=== PATIENT | male | born 1960 | race Caucasian/White ===

== ENCOUNTER 2020-04-05 08:10 | Outpatient (CLI) | payer MEDICARE, SELFPAY ==
[2020-04-05 08:50] LABS: Basophils Absolute Auto 0.1 K/mm3 (0.0-0.1); Basophils Percent Auto 1.9 % (0.2-1.2); Eosinophils Absolute Auto 0.3 K/mm3 (0-0.3); Eosinophils Percent Auto 4.4 % (0-4.4); Hematocrit 45.2 % (42.0-52.0); Hemoglobin 14.4 g/dL (14.0-18.0); Immature Granulocyte Absolute 0.02 K/mm3 (0.00-0.031); Immature Granulocyte Percent A 0.3 % (0-0.5); Lymphocytes Absolute Auto 1.89 K/mm3 (0.9-3.2); Lymphocytes Percent Auto 32.2 % (18.3-44.2); Mean Corpuscular HGB Conc 31.9 g/dl (32-36); Mean Corpuscular Hemoglobin 28.9 pg (26-34); Mean Corpuscular Volume 90.6 fl (80-100); Mean Platelet Volume 9.2 fl (7.4-10.4); Monocytes Absolute Auto 0.5 K/mm3 (0.1-0.6); Monocytes Percent Auto 8.5 % (2.6-8.5); Neutrophils Absolute Auto 3.1 K/mm3 (1.3-6.7); Neutrophils Percent Auto 52.7 % (45.5-73.1); Platelet Count Result 346 k/mm3 (150-375); Red Blood Count 4.99 M/mm3 (4.6-6.20); Red Cell Distribution Width 14.6 % (11.5-14.5); White Blood Count 5.9 K/mm3 (4.5-10.0)
[2020-04-05 08:57] LABS: Cholesterol 168 mg/dL (0-200); HDL Direct 30 mg/dL; Triglycerides 171 mg/dL (<150)
[2020-04-05 09:10] LABS: LDL Cholesterol Direct 120 mg/dL
[2020-04-05 09:30] LABS: Prostate Specific Antigen 1.4 ng/mL (< OR = 4.0)
[2020-04-05 09:33] LABS: Free T4 Free Thyroxine 0.87 ng/mL (0.78-2.19)
[2020-04-05 10:06] LABS: Folic Acid 6.9 ng/mL (2.76->20)
== END 2020-04-05 08:11 | disposition home or self-care (01) ==
PROVIDERS: PCP Internal Medicine; Visit Provider Internal Medicine
DX: R53.83 Other fatigue (principal); E78.5 Hyperlipidemia, unspecified; Z12.5 Encounter for screening for malignant neoplasm of prostate; E03.9 Hypothyroidism, unspecified
CPT/HCPCS: 36415; 80061; 82607; 82746; 84153; 84439; 84443; 85025; G0103

== ENCOUNTER 2020-08-24 12:58 | Outpatient (CLI) | payer MEDICARE, SELFPAY | END 2020-08-24 12:59 | disposition home or self-care (01) | LOC: ANHCOVIDVC 12:58 | PROVIDERS: PCP Internal Medicine; Visit Provider Internal Medicine | DX: Z23 Encounter for immunization (principal) | CPT/HCPCS: 0001A; 91300 ==

== ENCOUNTER 2020-09-14 12:54 | Outpatient (CLI) | payer MEDICARE, SELFPAY | END 2020-09-14 12:55 | disposition home or self-care (01) | LOC: ANHCOVIDVC 12:54 | PROVIDERS: PCP Internal Medicine; Visit Provider Internal Medicine | DX: Z23 Encounter for immunization (principal) | CPT/HCPCS: 0002A; 91300 ==

== ENCOUNTER 2021-06-20 08:42 | Outpatient (CLI) | payer MEDICARE, SELFPAY ==
[2021-06-20 09:25] LABS: Basophils Absolute Auto 0.1 K/mm3 (0.0-0.1); Basophils Percent Auto 1.2 % (0.2-1.2); Eosinophils Absolute Auto 0.3 K/mm3 (0-0.3); Eosinophils Percent Auto 4.3 % (0-4.4); Hematocrit 44.4 % (42.0-52.0); Hemoglobin 14.1 g/dL (14.0-18.0); Immature Granulocyte Absolute 0.02 K/mm3 (0.00-0.031); Immature Granulocyte Percent A 0.3 % (0-0.5); Lymphocytes Absolute Auto 1.57 K/mm3 (0.9-3.2); Lymphocytes Percent Auto 23.5 % (18.3-44.2); Mean Corpuscular HGB Conc 31.8 g/dl (32-36); Mean Corpuscular Hemoglobin 29.4 pg (26-34); Mean Corpuscular Volume 92.5 fl (80-100); Mean Platelet Volume 9.2 fl (7.4-10.4); Monocytes Absolute Auto 0.5 K/mm3 (0.1-0.6); Monocytes Percent Auto 8.1 % (2.6-8.5); Neutrophils Absolute Auto 4.2 K/mm3 (1.3-6.7); Neutrophils Percent Auto 62.6 % (45.5-73.1); Platelet Count Result 381 k/mm3 (150-375); White Blood Count 6.7 K/mm3 (4.5-10.0)
[2021-06-20 10:43] LABS: Alanine Aminotransferase 26 U/L (4-50); Albumin Level 4.3 g/dL (3.5-5.1); Alkaline Phosphatase 82 U/L (38-126); Anion Gap 9 mmol/L (8-16); Aspartate Amino Transferase 26 U/L (17-59); Bilirubin,Total 0.4 mg/dL (0.2-1.3); Blood Urea Nitrogen 11 mg/dL (9-20); Calcium 9.4 mg/dL (8.4-10.2); Carbon Dioxide 27 mmol/L (22-30); Chloride 102 mmol/L (98-107); Cholesterol 157 mg/dL (0-200); Estimated Glomerular Filt Rate > 60; Glucose 114 mg/dL (65-110); HDL Direct 25 mg/dL; Potassium 4.6 mmol/L (3.4-5.0); Sodium 138 mmol/L (137-145); Triglycerides 145 mg/dL (<150)
[2021-06-20 10:54] LABS: LDL Cholesterol Direct 110 mg/dL
[2021-06-20 11:18] LABS: Free T4 Free Thyroxine 1.03 ng/mL (0.78-2.19)
[2021-06-20 11:47] LABS: Folic Acid 7.2 ng/mL (2.76->20)
== END 2021-06-20 08:43 | disposition home or self-care (01) ==
PROVIDERS: PCP Internal Medicine; Visit Provider Internal Medicine
DX: E03.9 Hypothyroidism, unspecified (principal); E78.5 Hyperlipidemia, unspecified; R53.83 Other fatigue
CPT/HCPCS: 36415; 80053; 80061; 82607; 82746; 84439; 84443; 85025

== ENCOUNTER 2022-01-19 07:31 | Outpatient (RCR) | payer MEDICARE, SELFPAY ==
--- NOTE | 2022-01-10 08:49 | PCWOUND ---
WOCN NOTE Spoke with patient's Nicole who states they need to cancel today due to weather. Rescheduled for 01/19/22 at 9:30am
--- NOTE | 2022-01-19 09:26 | PCWOUND ---
WOCN NOTE Patient with new deep tissue injuries surrounding the ulcer on the left heel. Patient's spouse states he wears the waffle boots at night. Patient was asked if he would wear the waffle boot during the day for a few days to see if it helps. Patient states no. Asked patient if he has his feet up during the day on a hard surface while sitting in a recliner, both patient and spouse states he doesn't. When looks at the foot rest on wheelchair, there is a hard surface that holds foot strap to keep foot on the rest, it's possible that he is resting his foot on the hard surface without noticing due to his paralysis. Spouse asked patient if she could foam the area when they got home. Patient stated maybe . Patient is unwilling to find out why he's getting pressure to the foot. Instructed patient and his spouse to watch the areas and try to pay closer attention as to wear he rests his feet during the day to see if they could solve the problem. Spouse verbalized understanding.
== END 2022-03-13 23:59 | disposition home or self-care (01) ==
LOC: ANHWOC 07:31
PROVIDERS: PCP Internal Medicine; Visit Provider Podiatrist Foot & Ankle Surgery
DX: L89.623 Pressure ulcer of left heel, stage 3 (principal)
CPT/HCPCS: 99212; 99213; A9270; G0463

== ENCOUNTER 2022-03-02 08:05 | Outpatient (CLI) | payer MEDICARE, SELFPAY ==
[2022-03-02 08:30] LABS: Basophils Absolute Auto 0.1 K/mm3 (0.0-0.1); Basophils Percent Auto 1.9 % (0.2-1.2); Eosinophils Absolute Auto 0.4 K/mm3 (0-0.3); Eosinophils Percent Auto 5.4 % (0-4.4); Hemoglobin 13.6 g/dL (14.0-18.0); Immature Granulocyte Absolute 0.02 K/mm3 (0.00-0.031); Immature Granulocyte Percent A 0.3 % (0-0.5); Lymphocytes Absolute Auto 2.08 K/mm3 (0.9-3.2); Lymphocytes Percent Auto 27.5 % (18.3-44.2); Mean Corpuscular HGB Conc 31.6 g/dl (32-36); Mean Corpuscular Hemoglobin 28.2 pg (26-34); Mean Corpuscular Volume 89.2 fl (80-100); Mean Platelet Volume 9.3 fl (7.4-10.4); Monocytes Absolute Auto 0.6 K/mm3 (0.1-0.6); Monocytes Percent Auto 7.3 % (2.6-8.5); Neutrophils Absolute Auto 4.4 K/mm3 (1.3-6.7); Neutrophils Percent Auto 57.6 % (45.5-73.1); Platelet Count Result 317 k/mm3 (150-375); Red Blood Count 4.82 M/mm3 (4.6-6.20); Red Cell Distribution Width 14.9 % (11.5-14.5); White Blood Count 7.6 K/mm3 (4.5-10.0)
[2022-03-02 08:56] LABS: Free T4 Free Thyroxine 1.08 ng/mL (0.78-2.19)
[2022-03-02 10:23] LABS: Alanine Aminotransferase 22 U/L (6-50); Albumin Level 3.8 g/dL (3.5-5.1); Alkaline Phosphatase 82 U/L (38-126); Anion Gap 10 mmol/L (8-16); Aspartate Amino Transferase 25 U/L (17-59); Bilirubin,Total 0.4 mg/dL (0.2-1.3); Blood Urea Nitrogen 13 mg/dL (9-20); Calcium 8.9 mg/dL (8.4-10.2); Carbon Dioxide 23 mmol/L (22-30); Chloride 105 mmol/L (98-107); Cholesterol 157 mg/dL (0-200); Estimated Glomerular Filt Rate > 60; Glucose 104 mg/dL (65-110); HDL Direct 22 mg/dL; Potassium 4.4 mmol/L (3.4-5.0); Sodium 138 mmol/L (137-145); Triglycerides 202 mg/dL (<150)
[2022-03-02 10:36] LABS: LDL Cholesterol Direct 105 mg/dL
[2022-03-02 10:54] LABS: Prostate Specific Antigen 0.9 ng/mL (< OR = 4.0)
== END 2022-03-02 08:06 | disposition home or self-care (01) ==
PROVIDERS: PCP Internal Medicine; Visit Provider Internal Medicine
DX: E78.5 Hyperlipidemia, unspecified (principal); E03.9 Hypothyroidism, unspecified; R53.83 Other fatigue; Z12.5 Encounter for screening for malignant neoplasm of prostate
CPT/HCPCS: 36415; 80053; 80061; 82607; 82746; 84153; 84439; 84443; 85025; G0103

== ENCOUNTER 2023-03-16 07:14 | Outpatient (CLI) | payer MEDICARE, SELFPAY ==
[2023-03-16 08:02] LABS: Basophils Absolute Auto 0.1 K/mm3 (0.0-0.1); Basophils Percent Auto 1.6 % (0.2-1.2); Eosinophils Absolute Auto 0.4 K/mm3 (0-0.3); Eosinophils Percent Auto 5.1 % (0-4.4); Hematocrit 43.8 % (42.0-52.0); Immature Granulocyte Absolute 0.02 K/mm3 (0.00-0.031); Immature Granulocyte Percent A 0.2 % (0-0.5); Lymphocytes Absolute Auto 1.91 K/mm3 (0.9-3.2); Lymphocytes Percent Auto 23.6 % (18.3-44.2); Mean Corpuscular Hemoglobin 29.3 pg (26-34); Mean Corpuscular Volume 91.6 fl (80-100); Mean Platelet Volume 9.4 fl (7.4-10.4); Monocytes Absolute Auto 0.6 K/mm3 (0.1-0.6); Monocytes Percent Auto 6.8 % (2.6-8.5); Neutrophils Absolute Auto 5.1 K/mm3 (1.3-6.7); Neutrophils Percent Auto 62.7 % (45.5-73.1); Platelet Count Result 353 k/mm3 (150-375); Red Blood Count 4.78 M/mm3 (4.6-6.20); Red Cell Distribution Width 14.7 % (11.5-14.5); White Blood Count 8.1 K/mm3 (4.5-10.0)
[2023-03-16 08:15] LABS: Alanine Aminotransferase 21 U/L (6-50); Albumin Level 4.1 g/dL (3.5-5.1); Alkaline Phosphatase 70 U/L (38-126); Anion Gap 6 mmol/L (8-16); Aspartate Amino Transferase 29 U/L (17-59); Bilirubin,Total 0.5 mg/dL (0.2-1.3); Blood Urea Nitrogen 17 mg/dL (9-20); Calcium 8.9 mg/dL (8.4-10.2); Carbon Dioxide 26 mmol/L (22-30); Chloride 106 mmol/L (98-107); Cholesterol 158 mg/dL (0-200); Estimated Glomerular Filt Rate > 60; Glucose 109 mg/dL (65-110); HDL Direct 24 mg/dL; Potassium 4.6 mmol/L (3.4-5.0); Sodium 138 mmol/L (137-145); Triglycerides 111 mg/dL (<150)
[2023-03-16 08:26] LABS: LDL Cholesterol Direct 102 mg/dL
[2023-03-16 08:46] LABS: Free T4 Free Thyroxine 0.91 ng/mL (0.78-2.19)
[2023-03-16 16:23] LABS: Prostate Specific Antigen 1.7 ng/mL (< OR = 4.0)
== END 2023-03-16 07:15 | disposition home or self-care (01) ==
PROVIDERS: PCP Internal Medicine; Visit Provider Internal Medicine
DX: E78.5 Hyperlipidemia, unspecified (principal); E03.9 Hypothyroidism, unspecified; R53.83 Other fatigue; Z12.5 Encounter for screening for malignant neoplasm of prostate
CPT/HCPCS: 36415; 80053; 80061; 84153; 84439; 84443; 85025; G0103

== ENCOUNTER 2023-11-26 07:30 | Outpatient (RCR) | payer MEDICARE, SELFPAY | END 2024-01-21 08:49 | disposition home or self-care (01) | LOC: ANHWOC 07:30 | PROVIDERS: PCP Internal Medicine; Visit Provider Plastic Surgery | DX: L97.119 Non-pressure chronic ulcer of right thigh with unspecified severity (principal); L97.129 Non-pressure chronic ulcer of left thigh with unspecified severity | CPT/HCPCS: 99213; G0463 ==

== ENCOUNTER 2024-04-15 08:20 | Outpatient (CLI) | payer MEDICARE, SELFPAY ==
[2024-04-15 09:30] LABS: Basophils Absolute Auto 0.1 K/mm3 (0.0-0.1); Basophils Percent Auto 1.7 % (0.2-1.2); Eosinophils Absolute Auto 0.4 K/mm3 (0-0.3); Eosinophils Percent Auto 5.1 % (0-4.4); Hematocrit 38.1 % (42.0-52.0); Hemoglobin 11.9 g/dL (14.0-18.0); Immature Granulocyte Absolute 0.02 K/mm3 (0.00-0.031); Immature Granulocyte Percent A 0.3 % (0-0.5); Lymphocytes Absolute Auto 1.45 K/mm3 (0.9-3.2); Lymphocytes Percent Auto 20.1 % (18.3-44.2); Mean Corpuscular HGB Conc 31.2 g/dl (32-36); Mean Corpuscular Hemoglobin 28.5 pg (26-34); Mean Corpuscular Volume 91.4 fl (80-100); Mean Platelet Volume 9.9 fl (7.4-10.4); Monocytes Absolute Auto 0.6 K/mm3 (0.1-0.6); Monocytes Percent Auto 8.1 % (2.6-8.5); Neutrophils Absolute Auto 4.7 K/mm3 (1.3-6.7); Neutrophils Percent Auto 64.7 % (45.5-73.1); Platelet Count Result 357 k/mm3 (150-375); Red Blood Count 4.17 M/mm3 (4.6-6.20); Red Cell Distribution Width 15.3 % (11.5-14.5); White Blood Count 7.2 K/mm3 (4.5-10.0)
[2024-04-15 09:51] LABS: Alanine Aminotransferase 14 U/L (6-50); Alkaline Phosphatase 86 U/L (38-126); Anion Gap 12 mmol/L (4-12); Aspartate Amino Transferase 17 U/L (17-59); Bilirubin,Total 0.4 mg/dL (0.2-1.3); Blood Urea Nitrogen 16 mg/dL (9-20); Calcium 9.1 mg/dL (8.4-10.2); Carbon Dioxide 21 mmol/L (22-30); Chloride 107 mmol/L (98-107); Cholesterol 153 mg/dL (0-200); Estimated Glomerular Filt Rate > 60; Glucose 94 mg/dL (65-110); HDL Direct 28 mg/dL; Potassium 4.5 mmol/L (3.4-5.0); Sodium 140 mmol/L (137-145); Triglycerides 164 mg/dL (<150)
[2024-04-15 10:02] LABS: LDL Cholesterol Direct 93 mg/dL
[2024-04-15 10:20] LABS: Prostate Specific Antigen 1.8 ng/mL (< OR = 4.0)
[2024-04-15 10:37] LABS: Free T4 Free Thyroxine 1.12 ng/mL (0.78-2.19)
[2024-04-15 10:55] LABS: Folic Acid 10.2 ng/mL (2.76->20)
== END 2024-04-15 08:21 | disposition home or self-care (01) ==
PROVIDERS: PCP Internal Medicine; Visit Provider Nurse Practitioner
DX: E03.9 Hypothyroidism, unspecified (principal); E78.5 Hyperlipidemia, unspecified; G82.21 Paraplegia, complete; Z12.5 Encounter for screening for malignant neoplasm of prostate
CPT/HCPCS: 36415; 80053; 80061; 82607; 82746; 84153; 84439; 84443; 85025; G0103

== ENCOUNTER 2024-04-24 14:01 | Outpatient (CLI) | payer MEDICARE, SELFPAY ==
[2024-04-24 15:56] LABS: Iron 33 ug/dL (49-181)
[2024-04-24 16:05] LABS: Percent Iron Saturation 12 % (20-50)
== END 2024-04-24 14:02 | disposition home or self-care (01) ==
LOC: ANHLAB 14:03
PROVIDERS: PCP Internal Medicine; Visit Provider Nurse Practitioner
DX: D64.9 Anemia, unspecified (principal)
CPT/HCPCS: 36415; 82728; 83540; 83550; 99202; G0463

== ENCOUNTER 2024-05-01 13:04 | Outpatient (CLI) | payer MEDICARE, SELFPAY | END 2024-05-01 13:05 | disposition home or self-care (01) | LOC: ANHAUDIO 13:06 | PROVIDERS: PCP Internal Medicine; Visit Provider Nurse Practitioner | DX: H90.3 Sensorineural hearing loss, bilateral (principal); H93.13 Tinnitus, bilateral | CPT/HCPCS: 92557; 92567 ==

== ENCOUNTER 2024-07-01 09:19 | Outpatient (CLI) | payer MEDICARE, SELFPAY ==
[2024-07-01 09:52] LABS: Hemoglobin 13.1 g/dL (14.0-18.0); Mean Corpuscular HGB Conc 31.2 g/dl (32-36); Mean Corpuscular Hemoglobin 28.2 pg (26-34); Mean Corpuscular Volume 90.5 fl (80-100); Mean Platelet Volume 9.3 fl (7.4-10.4); Platelet Count Result 323 k/mm3 (150-375); Red Blood Count 4.64 M/mm3 (4.6-6.20); Red Cell Distribution Width 16.1 % (11.5-14.5); White Blood Count 9.8 K/mm3 (4.5-10.0)
[2024-07-01 18:52] LABS: Iron 67 ug/dL (49-181)
[2024-07-01 19:06] LABS: Percent Iron Saturation 22 % (20-50)
== END 2024-07-01 09:20 | disposition home or self-care (01) ==
LOC: ANHLAB 09:20
PROVIDERS: PCP Internal Medicine; Visit Provider Nurse Practitioner
DX: D64.9 Anemia, unspecified (principal)
CPT/HCPCS: 36415; 83540; 83550; 85027

== ENCOUNTER 2024-09-16 21:43 | Emergency (ER) | payer MEDICARE, SELFPAY ==
[2024-09-16 21:45] VITALS: BP 153/88; PULSE 79; RESP 17; TEMP 37.2; O2SAT 97
--- OUTSIDE RECORDS SUMMARY | 2024-09-16 21:45 | XMS_ITS | Encounter Summary ---
Author Organization [facility] Address [address] [place] [address] Care Team Providers Care Avionics Electronics Technician Name Role Phone Non-Staff, Provider Primary Care Provider Carlos ferreira Reason for Visit * Reason Onset Date Comments Follow Up Call 09/16/2024 Wound care refer ral from IP stay. Patient already discharged. Called patient to see if would like to be seen at the wound care clinic for wound on his bottom. stated she would talk to and call back tomorrow and let us know if he would like to be seen at [facility]. Encounter Details Date Type Department Care Team (Late st Contact Info) Description 09/16/2024 Telephone [facility] [address] [place] [address] Remedios Fuller, RN Follow Up Call (Wound care referral from IP stay. Patient already discharged. Called patient to see if would like to be seen at the wound care clinic for wound on his bottom. stated she would talk to and call back tomorrow and let us know if he would like to be seen at [facility].) Social History Tobacco Use Types Packs/Day Years Used Date Smoking Tobacco: Some Days Cigarettes Smokeless Tobacco: Never Alcohol Use Standard Drinks/Week Comments Never 0 (1 standard drink = 0.6 oz pur e alcohol) B1300 Health Literacy Answer Date Recor ded How often do you need to hav e someone help you when you read instructions, pamphlets, or other written material from your doctor or pharmacy? Rarely 09/13/2024 [facility] Utilities Answer Date Recorded In the past 12 months has th e electric, gas, oil, or water [employer] threatened to shut off services in your home? No 09/13/2024 Humiliation, Afraid, Rape, and Kick questionnair e Answer Date Recorded Within the last year, have y ou been afraid of your partner or ex-partner? No 09/13/2024 Within the last year, have y ou been humiliated or emotionally abused in other ways by your partner or ex-partner? No Within the last year, have y ou been kicked, hit, slapped, or otherwise physically hurt by your partner or ex-partner? No 09/13/2024 Within the last year, have y ou been raped or forced to have any kind of sexual activity by your partner or ex-partner? No 09/13/2024 Social Connection and Isolation Panel [NHANES] A nswer Date Recorded In a typical week, how many times do you talk on the phone with family, friends, or neighbors? Never 09/13/2024 How often do you get together with friends or re latives? Never 09/13/2024 How often do you attend baptism or confucianist serv ices? Never 09/13/2024 Do you belong to any clubs o r organizations such as baptism groups, unions, fraternal or athletic groups, or school groups? Yes 09/13/2024 Attends Club or Organization Meetings Not on randolph e 09/13/2024 Are you , , di vorced, , never , or living with a partner? 09/13/2024 AUDIT-C Answer Date Recorded Q1: How often do you have a drink containing alc ohol? Monthly or less 09/13/2024 Average Number of Drinks Not on file 025 Frequency of Binge Drinking Not on file 08/17 Overall Financial Resource Strain (CARDIA) Answe r Date Recorded How hard is it for you to pa y for the very basics like food, housing, medical care, and heating? Not hard at all 09/13/2024 Exercise Vital Sign Answer Date Recorde d On average, how many days pe r week do you engage in moderate to strenuous exercise (like a brisk walk)? 0 days 09/13/2024 On average, how many minutes do you engage in exercise at this level? 0 min 09/13/2024 Hunger Vital Sign Answer Date Recorded Within the past 12 months, y ou worried that your food would run out before you got the money to buy more. Never true 09/14/19 25 Within the past 12 months, t he food you bought just didn't last and you didn't have money to get more. Never true 09/13/2024 PRAPARE - Transportation Answer Date Re corded In the past 12 months, has l ack of transportation kept you from medical appointments or from getting medications? No 08/17 In the past 12 months, has l ack of transportation kept you from meetings, work, or from getting things needed for daily living? No 09/13/2024 Housing Stability Vital Sign Answer Monty e Recorded In the last 12 months, was t here a time when you were not able to pay the mortgage or rent on time? No 09/13/2024 In the past 12 months, how m any times have you moved where you were living? 1 09/13/2024 At any time in the past 12 m [facility], were you homeless or living in a [facility] (including now)? No 09/13/2024 Sex and Gender Information Value Date Recorded Sex Assigned at Male 09/14/2024 10:14 AM CDT Legal Sex Male 7:26 PM CDT Gender Identity Male 09/14/2024 10:14 AM CDT Sexual Orientation Straight 09/14/2024 10 :14 AM CDT documented as of this encounter Functional Status * Are you deaf or do you have serious difficulty hearing Answer Date of Assessment Author Status Yes 09/13/2024 11:35 PM CDT uSjata Cleaning RN Active * Are you blind or do you have serious difficulty seeing, even when wearing glasses? Answer Date of Assessment Author Status No 09/13/2024 11:35 PM CDT Sujata Cleaning RN Active * Do you have serious difficulty walking or climbing stairs? Answer Date of Assessment Author Status Yes 09/13/2024 11:35 PM CDT Sujata Cleaning RN Active * Do you have difficulty dressing or bathing? Answer Date of Assessment Author Status Yes 09/13/2024 11:35 PM CDT Sujata Cleaning RN Active * Because of a physical, mental, or emotional condition, do you have difficulty doing errands alone such as visiting a doctor's office or shopping? Answer Date of Assessment Author Status Yes 09/13/2024 11:35 PM Sujata Barron RN Active documented as of this encounter Mental Status * Because of a physical, mental, or emotional condition, do you have serious difficulty concentrating, remembering, or making decisions? Answer Entry Date Author Status No 09/13/2024 11:35 PM Sujata Barron RN Active documented in this encounter Plan of Treatment Not on file documented as of this encounter Visit Diagnoses Not on filedocumented in this encounter Care Teams Avionics Electronics Technician Relationship Specialty Start Date End Date Non-Staff, Provider PCP - General UNKNOWN PHYSICIAN SPECIALTY 09/13/24 documented as of this encounter
--- OUTSIDE RECORDS SUMMARY | 2024-09-16 21:45 | XMS_ITS | Clinical Summary ---
Author Organization [facility] Address [address] [place] [address] Care Team Providers Care Director Of Therapy Services Name Role Phone Non-Staff, Provider Primary Care Provider Carlos lable Allergies Active Allergy Reactions Criticality Noted Date Comments Bacitracin-Polymyxin B Other (see comment) 08/17 [place] Vancomycin Redness 09/13/2024 Red man syndrome Medications baclofen (LIORESAL) 10 MG tablet Take 1 tablet (10 mg total) by mouth nightly at bedtime. 5 Active HYDROcodone-dg taminophen (NORCO) 5-325 MG tablet Take 1 tablet by mouth 2 (two) times daily as needed. 5 Active levothyroxine (SYNTHROID) 50 MCG tablet Take 1 tablet (50 mcg total) by mouth daily. 5 Active simvastatin (ZOCOR) 20 MG tablet Take 1 tablet (20 mg total) by mouth daily. 5 Active Iron-Vitamin C (VITRON-C OR) Take 1 tablet by mouth nightly at bedtime. Active vitamin C (ASCORBIC ACID) 500 MG tablet Take 1 tablet (500 mg total) by mouth daily. Active vitamin E 100 UNIT capsule Take 1 capsule (100 Units total) by mouth daily. Active cefdinir (OMNICEF) 300 MG Cap capsule Take 1 capsule (300 mg total) by mouth 2 (two) times daily for 3 days. 6 capsule 5 09/21/19 25 Active amLODIPine (NORVASC) 5 MG tablet Take 1 tablet (5 mg total) by mouth daily. 30 tablet 5 Active sulfamethoxazol e-trimethoprim (BACTRIM DS) 800-160 MG tablet Take 1 tablet by mouth nightly at bedtime. 5 09/17/19 25 Discontinu ed(Stop Taking at Discharge) Active Problems Problem Noted Date Diagnosed Date Complicated UTI (urinary tract infection) 2024 Encounters Date Type Department Care Team Description 09/16/2024 Telephone [facility] Wound Care [address] [place] [address] Remedios Fuller RN Follow Up Call (Wound care referral from IP stay. Patient already discharged. Called patient to see if would like to be seen at the wound care clinic for wound on his bottom. stated she would talk to and call back tomorrow and let us know if he would like to be seen at [facility].) 09/13/2024 12:42 PM CDT - 09/16/2024 1:12 PM CDT Hospital Encounter [facility] Med/Surg [address] [place] [address] Joseline Alvarado MD Mahtani, Andrew, MD Dodt, Darah R, APRN Ojulari, Adebunmi, MD Urinary Retention Discharge Disposition: Home or Self Care (Routine Discharge) 09/13/2024 Travel from Last 3 Months Social History Tobacco Use Types Packs/Day Years Used Date Smoking Tobacco: Some Days Cigarettes Smokeless Tobacco: Never Tobacco Cessation:Ready to Q uit: Not Asked Alcohol Use Standard Drinks/Week Comments Never 0 (1 standard drink = 0.6 oz pur e alcohol) B1300 Health Literacy Answer Date Recor ded How often do you need to hav e someone help you when you read instructions, pamphlets, or other written material from your doctor or pharmacy? Rarely 09/13/2024 [facility] Utilities Answer Date Recorded In the past 12 months has th e [employer], gas, oil, or water [employer] threatened to shut off services in your [...] Never 09/13/2024 How often do you attend bahai or sikhism serv ices? Never 09/13/2024 Do you belong to any clubs o r organizations such as bahai groups, unions, fraternal or athletic groups, or [...] any time in the past 12 m [facility], were you homeless or living in a senior care (including now)? No 09/13/2024 Sex and Gender Information Value Date Recorded Sex Assigned at Male 09/14/2024 10:14 AM CDT Legal Sex Male 7:26 PM CDT Gender Identity Male 09/14/2024 10:14 AM CDT Sexual Orientation Straight 09/14/2024 10 :14 AM CDT Last Filed Vital Signs Vital Sign Reading Time Taken Comments Blood Pressure 138/62 09/16/2024 12:02 PM CDT Pulse 63 09/16/2024 11:37 AM CDT Temperature 36.7 C (98 F) 09/16/2024 11:37 AM CDT Respiratory Rate 20 09/16/2024 11:3 7 AM CDT Oxygen Saturation 96% 09/16/2024 11: 37 AM CDT Inhaled Oxygen Concentration - - Weight 143.5 kg (316 lb 5.8 oz) 025 11:21 PM CDT Height 188 cm (6' 2 ) 09/13/2024 11:21 PM CDT Body Mass Index 40.62 09/13/2024 11:21 PM CDT Plan of Treatment Health Maintenance Due Date Last Done Comments Colorectal Cancer Screening Colonoscopy (10 Years) 1959 Pneumococcal Vaccine: 65+ Years (1 of 2 - PCV) 1965 Pneumococcal Vaccine: Pediatrics (0 to 5 Years) and At-Risk Patients (6 to 64 Years) (1 of 2 - PCV) 1965 Hepatitis C 1977 DTaP, Tdap and Td Vaccines ( 1 - Tdap) 1978 Zoster Vaccines (1 of 2) 2009 RSV Immunization or 60+ Years (1 - Risk 60-74 years 1-dose series) 2019 COVID-19 Vaccine (4 - 2023-2 5 season) 2024 05/19/2021, 09/14/2020, 08/24/2020 AAA SCREENING 2024 Meningococcal B Vaccine Aged Out No l onger eligible based on patient's age to complete this topic Meningococcal Vaccine Aged Out No artur tyson eligible based on patient's age to complete this topic RSV Immunizations Under 20 Months Aged Out No longer eligible b ased on patient's age to complete this topic Procedures Procedure Name Priority Date/Time Associated Diagnosis Comments BASIC METABOLIC PANEL Routine 09/16/2024 5:15 AM CDT CBC W/DIFF AUTOMATED Routine 09/16/2024 5:15 AM CDT BASIC METABOLIC PANEL Routine 09/15/2024 5:43 AM CDT CBC W/DIFF AUTOMATED Routine 09/15/2024 5:43 AM CDT XR HEEL LT MIN 2V Today 09/14/2024 12: 33 PM CDT BASIC METABOLIC PANEL Routine 09/14/2024 5:15 AM CDT CBC W/DIFF AUTOMATED Routine 09/14/2024 5:15 AM CDT LACTIC ACID W REFLEX (SEPSIS) TIMED 09/13/2024 10:21 PM CDT CULTURE, BACTERIA, BLOOD STAT 09/13/2024 8:09 PM CDT LACTIC ACID W REFLEX (SEPSIS) TIMED 09/13/2024 8:09 PM CDT CENTRAL LINE Routine 09/13/2024 6:00 PM CDT CULTURE, BACTERIA, BLOOD STAT 09/13/2024 4:14 PM CDT LACTIC ACID W REFLEX (SEPSIS) STAT 09/13/2024 4:14 PM CDT COMPREHENSIVE METABOLIC PANEL STAT 09/13/2024 4:14 PM CDT CBC W/DIFF AUTOMATED STAT 09/13/2024 4:14 PM CDT URINE BACTERIA CULTURE STAT 1:45 PM CDT URINALYSIS, AUTO, COMPLETE STAT 09/13/2024 1:45 PM CDT CRITICAL CARE Routine 09/13/2024 1:02 PM CDT from Last 3 Months Results * (ABNORMAL) BASIC METABOLIC PANEL (09/16/2024 5:15 AM CDT) Only the most recent of3 resultswithin the time period is included. [facility] GLUCOSE 105(H) 70 - 99 MG/DL 09/16/2024 5:59 AM CDT [facility] BUN 10 7 - 18 MG/DL 09/16/2024 5:59 AM CDT [facility] CREATININE S/P/B 0.85 0.7 - 1.3 MG/DL 09/16/2024 5:59 AM CDT [facility] SODIUM S/P/B 138 136 - 145 MMOL/L 09/16/2024 5:59 AM CDT [facility] POTASSIUM S/P/B 4.0 3.5 - 5.1 MMOL/L 09/16/2024 5:59 AM CDT [facility] CHLORIDE S/P/B 104 100 - 108 MMOL/L 09/16/2024 5:59 AM CDT [facility] CO2 25.2 21 - 32 MMOL/L 09/16/2024 5:59 AM CDT [facility] CALCIUM S/P/B 9.2 8.5 - 10.1 MG/DL 09/16/2024 5:59 AM CDT [facility] ANION GAP 8.8 5 - 15 MMOL/L 09/16/2024 5:59 AM CDT [facility] BUN CREATININE RATIO 11.8 6 - 26 09/16/2024 5:59 AM CDT [facility] GFR ESTIMATE >90 >90 ML/MIN/1.7 3 M2 09/16/2024 5:59 AM CDT [facility] Comment: NOTE: eGFR is not calculated for patients <18 years of age. This is an estimated GFR calculation using the new CKD EPI creatinine equation without race and so does not require a correction factor for race. This estimated GFR should not be used for calculating drug doses. 09/16/2024 5:15 AM CDT Glenys Santana DISINTEGRATOR LABORATORY Final Result [facility] [address] [place] [address], * (ABNORMAL) CBC W/DIFF AUTOMATED (09/16/2024 5:15 AM CDT) Only the most recent of4 resultswithin the time period is included. WBC 7.96 4.4 - 11.0 x10'3/uL 09/16/2024 5:43 AM CDT [facility] RBC 4.25(L) 4.50 - 5.90 x10'6/uL 09/16/2024 5:43 AM CDT [facility] HGB 12.2(L) 14.0 - 17.5 G/DL 09/16/2024 5:43 AM CDT [facility] HCT 38.0(L) 41.5 - 50.4 % 09/16/2024 5:43 AM CDT [facility] MCV 89.4 80.0 - 96.0 FL 09/16/2024 5:43 AM CDT [facility] MCH 28.7 26.5 - 31.4 PG 09/16/2024 5:43 AM CDT [facility] MCHC 32.1 31.9 - 34.8 G/DL 09/16/2024 5:43 AM CDT [facility] RDW 15.3(H) 12.3 - 14.3 % 09/16/2024 5:43 AM CDT [facility] PLT 196 151 - 353 x10'3/uL 09/16/2024 5:43 AM CDT [facility] MPV 9.7 9.7 - 11.9 FL 09/16/2024 5:43 AM T [facility] RBC MORPHOLOGY NORMAL 09/16/2024 5:43 AM CDT [facility] PLT MORPH. NORMAL 09/16/2024 5:43 AM CDT [facility] WBC MORPHOLOGY NORMAL 09/16/2024 5:43 AM T [facility] LYMPHOCYTES % 21.9 15.8 - 45.0 % 09/16/2024 5:43 AM CDT [facility] NEUTROPHILS % 63.8 42.1 - 71.9 % 09/16/2024 5:43 AM CDT [facility] MONOCYTES % 9.0 5.7 - 12.5 % 09/16/2024 5:43 AM CDT [facility] EOSINOPHILS 3.5 0.0 - 5.6 % 09/16/2024 5:43 AM CDT [facility] BASOPHILS 1.4(H) 0.0 - 1.3 % 09/16/2024 5:43 AM CDT [facility] ABS. NEUTROPHILS 5.08 1.40 - 6.00 x10'3/uL 09/16/2024 5:43 AM CDT [facility] IMMATURE GRANS % 0.4 0.0 - 0.5 % 09/16/2024 5:43 AM CDT [facility] ABS. LYMPHOCYTES 1.74 0.80 - 4.70 x10'3/uL 09/16/2024 5:43 AM CDT [facility] 09/16/2024 5:15 AM CDT Basilmatheus Bart Santana DISINTEGRATOR LABORATORY Final Result Performing Organization Address City/State/[facility] Co de Phone Number [facility] [address] [place] [address], * XR HEEL LT MIN 2V (09/14/2024 12:33 PM CDT) Anatomical Region Laterality Modality Foot Radiographic Evelin ging 09/14/2024 12:4 5 PM CDT Impressions 09/14/2024 12:54 PM CDT IMPRESSION: 1. No evidence of acute osseous abnormality. 2. Osteopenia, consistent with paraplegia. 3. Soft tissue wound overlying the calcaneal tuberosity. No deep soft tissue gas or foreign body identified. Referred By: Interpreted By: Alex Araiza MD, 09/14/2024 12:45 PM Narrative 09/14/2024 12:54 PM CDT [facility] [address] [facility] [place] [address] Examination: Left calcaneus. Exam time: 1230 hours. Clinical history: Wound on the heel. Clinical concern for osteomyelitis. History of paraplegia. Comparison: None. Technique: Two views. Findings: No fracture, dislocation or other acute bony abnormality is identified. There is osteopenia, consistent with paraplegia. No other significant bone or joint abnormality is noted.Specifically, there are no radiographic findings to suggest osteomyelitis. Soft tissue deformity overlying the calcaneal tuberosity is consistent with the wound site. The soft tissues are otherwise unremarkable. No deep soft tissue gas or foreign body is identified. Procedure Note Alex Araiza MD - 09/14/2024 [facility] [address] [place] [address] Examination: Left calcaneus. Exam time: 1230 hours. Clinical history: Wound on the heel. Clinical concern for osteomyelitis.History of paraplegia. Comparison: None. Technique: Two views. Findings: No fracture, dislocation or other acute bony abnormality isidentified. There is osteopenia, consistent with paraplegia. No othersignificant bone or joint abnormality is noted.Specifically, there are noradiographic findings to suggest osteomyelitis. Soft tissue deformityoverlying the calcaneal tuberosity is consistent with the wound site. Thesoft tissues are otherwise unremarkable. No deep soft tissue gas orforeign body is identified. IMPRESSION: 1. No evidence of acute osseous abnormality. 2. Osteopenia, consistent with paraplegia. 3. Soft tissue wound overlying the calcaneal tuberosity. No deep softtissue gas or foreign body identified. Referred By: Interpreted By: Alex Araiza MD, 09/14/2024 12:45 PM [facility] Final Result * (ABNORMAL) LACTIC ACID W REFLEX (SEPSIS) (09/13/2024 10:21 PM CDT) Only the most recent of3 resultswithin the time period is included. LACTIC ACID VENOUS 2.1(HH) 0.4 - 2.0 MMOL/L 09/13/2024 10:55 PM CDT [facility] Comment: Critical Result(s) Called at: 22:55:01 on 09/13/2024 by: MATHIEU JOHNSON to and read back by:RENETTA ROQUE IN ED 09/13/2024 10:2 1 PM CDT Joseline Alvarado MD LABORATORY Final Resu lt [facility] [address] [place] [address], [place] [phone] * Central Line (09/13/2024 6:00 PM CDT) Joseline Sandoval MD - 09/13/2024 6:00 PM CDT Joseline Alvarado MD 09/13/2024 7:24 PM Central Line Date/Time: 09/13/2024 6:00 PM Performed by: Joseline Alvarado MD Authorized by: Joseline Alvarado MD Consent: Consent obtained: Written Consent given by: Patient Risks discussed: Arterial puncture, incorrect placement, pneumothorax and infection Alternatives discussed: Delayed treatment [place] protocol: Patient identity confirmed: Verbally with patient Pre-procedure details: Indication(s): insufficient peripheral access Hand hygiene: Hand hygiene performed prior to insertion Sterile barrier technique: All elements of maximal sterile technique followed Skin preparation: Chlorhexidine with alcohol Skin preparation agent: Skin preparation agent completely dried prior to procedure Sedation: Sedation type: None Anesthesia: Anesthesia method: None Procedure details: Location: R internal jugular Patient position: Trendelenburg Landmarks identified: yes Ultrasound guidance: yes Ultrasound guidance timing: prior to insertion and real time Sterile ultrasound techniques: Sterile gel and sterile probe covers were used Number of attempts: 1 Successful placement: no Post-procedure details: Post-procedure: Dressing applied Procedure completion: Procedure terminated electively by provider Comments: Unable to cannulate IJ which was extraordinarily difficult to localize on ultrasound guidance Joseline Alvarado MD PROCEDURE/MINOR SURGICAL O RDERABLES Final Result * (ABNORMAL) COMPREHENSIVE METABOLIC PANEL (09/13/2024 4:14 PM CDT) GLUCOSE 113(H) 70 - 99 MG/DL 09/13/2024 4:37 PM CDT [facility] BUN 16 7 - 18 MG/DL 09/13/2024 4:37 PM CDT [facility] CREATININE S/P/B 1.47(H) 0.7 - 1.3 MG/DL 09/13/2024 4:37 PM T [facility] SODIUM S/P/B 132(L) 136 - 145 MMOL/L 09/13/2024 4:37 PM [facility] POTASSIUM S/P/B 4.4 3.5 - 5.1 MMOL/L 09/13/2024 4:37 PM [facility] CHLORIDE S/P/B 97(L) 100 - 108 MMOL/L 09/13/2024 4:37 PM T [facility] CO2 20.2(L) 21 - 32 MMOL/L 09/13/2024 4:37 PM [facility] CALCIUM S/P/B 9.1 8.5 - 10.1 MG/DL 09/13/2024 4:37 PM [facility] BILIRUBIN TOTAL S/P/B 0.6 0.2 - 1.2 MG/DL 09/13/2024 4:37 PM [facility] TOTAL PROTEIN S/P/B 7.6 6.4 - 8.2 G/DL 09/13/2024 4:37 PM [facility] ALBUMIN S/P/B 3.1(L) 3.4 - 5.0 G/DL 09/13/2024 4:37 PM [facility] AST 28 15 - 37 U/L 09/13/2024 4:37 PM [facility] ALT 28 16 - 60 U/L 09/13/2024 4:37 PM [facility] ALKALINE PHOSPHATASE S/P/B 92 50 - 136 U/L 09/13/2024 4:37 PM [facility] ANION GAP 14.8 5 - 15 MMOL/L 09/13/2024 4:37 PM [facility] BUN CREATININE RATIO 10.9 6 - 26 09/13/2024 4:37 PM CDT [facility] A/G RATIO 0.7(L) 1.0 - 2.0 RATIO 09/13/2024 4:37 PM CDT [facility] GFR ESTIMATE 53(L) >90 ML/MIN/1.7 3 M2 09/13/2024 4:37 PM CDT [facility] Comment: NOTE: eGFR is not calculated for patients <18 years of age. This is an estimated GFR calculation using the new CKD EPI creatinine equation without race and so does not require a correction factor for race. This estimated GFR should not be used for calculating drug doses. 09/13/2024 4:14 PM CDT us Joseline Alvarado MD LABORATORY Final Resu lt [facility] [address] [place] [address], [place] [phone] * (ABNORMAL) CULTURE URINE (09/13/2024 1:45 PM CDT) SPEC DESCRIPTION URINE STRAIGHT CATH 09/13/2024 2:18 PM CDT [facility] SPECIAL REQUESTS NO SPECIAL REQUEST 09/13/2024 2:18 PM CDT [facility] CULTURE RESULT 50,000-100,0 00 COL/ML ESCHERICHIA COLI (A) 09/16/2024 7:12 AM CDT [facility] URINE SPECIMEN OBTAINED BY SINGLE CATHETERIZATION OF URINARY BLADDER / Unknown 09/13/2024 1:45 PM CDT 09/13/2024 4:16 PM CDT Narrative Organism Antibiotic Method Susceptibility Escherichia coli AMPICILLIN CANDIE (VITEK) 16: Intermediate Comment:INTERMEDIATE Escherichia coli AMPICILLIN/SULBACTAM CANDIE (VITEK) 8: Sensitive Escherichia coli CEFTRIAXONE CANDIE (VITEK) <=1: Sensitive Escherichia coli CEFTAZIDIME CANDIE (VITEK) <=1: Sensitive Escherichia coli CEFAZOLIN CANDIE (VITEK) <=4: Sensitive Escherichia coli ESBL CANDIE (VITEK) NEG: Sensitive Escherichia coli NITROFURANTOIN CANDIE (VITEK) <=16: Sensitive Escherichia coli GENTAMICIN CANDIE (VITEK) 2: Sensitive Escherichia coli LEVOFLOXACIN CANDIE (VITEK) >=8: Resistant Escherichia coli PIPRACIL/TAZO CANDIE (VITEK) <=4: Sensitive Escherichia coli TRIMETH-SULFAMETH. CANDIE (VITEK) >=320: Resistant Joseline Alvarado MD MICROBIOLOGY - GENERAL ORD ERABLES Final Result [facility] [address] [place] [address], [place] [phone] [facility] [address] [place] [address], [place] [phone] * (ABNORMAL) URINALYSIS, AUTO, COMPLETE (09/13/2024 1:45 PM CDT) COLOR (U) DARK YELLOW 09/13/2024 2:09 PM CDT [facility] TRANSPARENCY TURBID 09/13/2024 2:09 PM CDT [facility] SPECIFIC GRAVITY (U) 1.020 1.000 - 1.030 09/13/2024 2:09 PM CDT [facility] U PH 8.0 5.0 - 9.0 09/13/2024 2:09 PM CDT [facility] LEUKOCYTES (U) 3+(A) NEGATIVE 09/13/2024 2:09 PM CDT [facility] NITRITES NEGATIVE NEGATIVE 09/13/2024 2:09 PM CDT [facility] PROTEIN RANDOM (U) 1+(A) NEGATIVE 09/13/2024 2:09 PM CDT [facility] GLUCOSE (U) NEGATIVE NEGATIVE 09/13/2024 2:09 PM CDT [facility] KETONES MG/DL (U) NEGATIVE NEGATIVE 09/13/2024 2:09 PM CDT [facility] BILIRUBIN (U) NEGATIVE NEGATIVE 09/13/2024 2:09 PM CDT [facility] BLOOD (U) 3+(A) NEGATIVE 09/13/2024 2:09 PM CDT [facility] WBC/HPF 50-100 0 - 5 /HPF 09/13/2024 2:09 PM CDT [facility] RBC/HPF 50-100 0 - 5 /HPF 09/13/2024 2:09 PM CDT [facility] EPI/HPF FEW /HPF 09/13/2024 2:09 PM CDT [facility] CRYSTALS (U) FEW /HPF 09/13/2024 2:09 PM CDT [facility] Comment:TRIPLE PHOSPHATE BACTERIA (U) MANY /HPF 09/13/2024 2:09 PM CDT [facility] URINE, STRAIGHT CATH 09/13/2024 1:45 PM CDT us Joseline Alvarado MD URINE ORDERABLES Final Res ult [facility] [address] [place] [address], [place] [phone] * Critical Care (09/13/2024 1:02 PM CDT) Narrative Joseline Alvarado MD - 09/13/2024 1:02 PM CDT Joseline Alvarado MD 09/13/2024 7:24 PM Critical Care Performed by: Joseline Alvarado MD Authorized by: Joseline Alvarado MD Critical care provider statement: Critical care time was exclusive of: Separately billable procedures and treating other patients Critical care was necessary to treat or prevent imminent or life-threatening deterioration of the following conditions: Sepsis Critical care was time spent personally by me on the following activities: Ordering and performing treatments and interventions, ordering and review of laboratory studies, re-evaluation of patient's condition, development of treatment plan with patient or surrogate, evaluation of patient's response to treatment, examination of patient and obtaining history from patient or surrogate Care discussed with: admitting provider us Joseline Alvarado MD PROCEDURE/MINOR SURGICAL O RDERABLES Final Result from Last 3 Months Insurance MEDICARE Advance Directives * Full Code (Latest Code Status on File) Date Activated Date Inactivated Comments 09/14/2024 10:34 AM 09/16/2024 3:17 PM Care Teams Director Of Therapy Services Relationship Specialty Start Date End Date Non-Staff, Provider PCP - General UNKNOWN PHYSICIAN SPECIALTY 09/13/24
--- OUTSIDE RECORDS SUMMARY | 2024-09-16 21:46 | XMS_ITS | Encounter Summary ---
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 CDT) GLUCOSE 111(H) 70 - 99 MG/DL 09/15/2024 6:05 AM CDT [facility] BUN 8 7 - 18 MG/DL 09/15/2024 6:05 AM CDT [facility] CREATININE S/P/B 0.80 0.7 - 1.3 MG/DL 09/15/2024 6:05 AM CDT [facility] SODIUM S/P/B 140 136 - 145 MMOL/L 09/15/2024 6:05 AM CDT [facility] POTASSIUM S/P/B 3.9 3.5 - 5.1 MMOL/L 09/15/2024 6:05 AM CDT [facility] CHLORIDE S/P/B 106 100 - 108 MMOL/L 09/15/2024 6:05 AM T [facility] CO2 25.9 21 - 32 MMOL/L 09/15/2024 6:05 AM T [facility] CALCIUM S/P/B 8.7 8.5 - 10.1 MG/DL 09/15/2024 6:05 AM T [facility] ANION GAP 8.1 5 - 15 MMOL/L 09/15/2024 6:05 AM T [facility] BUN CREATININE RATIO 10.0 6 - 26 09/15/2024 6:05 AM T [facility] GFR ESTIMATE >90 >90 ML/MIN/1.7 3 M2 09/15/2024 6:05 AM T [facility] Comment: NOTE: eGFR is not calculated for patients <18 years of age. This is an estimated GFR calculation using the new CKD EPI creatinine equation without race and so does not require a correction factor for race. This estimated GFR should not be used for calculating drug doses. 09/15/2024 5:43 AM CDT Glenys Segovia [facility] Final Result [facility] [address] [place] [address], [place] [phone] * (ABNORMAL) CBC W/DIFF AUTOMATED (09/15/2024 5:43 AM CDT) [facility] WBC 11.19(H) 4.4 - 11.0 x10'3/uL 09/15/2024 5:57 AM CDT [facility] RBC 4.09(L) 4.50 - 5.90 x10'6/uL 09/15/2024 5:57 AM CDT [facility] HGB 12.0(L) 14.0 - 17.5 G/DL 09/15/2024 5:57 AM CDT [facility] HCT 36.7(L) 41.5 - 50.4 % 09/15/2024 5:57 AM CDT [facility] MCV 89.7 80.0 - 96.0 FL 09/15/2024 5:57 AM CDT [facility] MCH 29.3 26.5 - 31.4 PG 09/15/2024 5:57 AM CDT [facility] MCHC 32.7 31.9 - 34.8 G/DL 09/15/2024 5:57 AM CDT [facility] RDW 15.3(H) 12.3 - 14.3 % 09/15/2024 5:57 AM CDT [facility] PLT 191 151 - 353 x10'3/uL 09/15/2024 5:57 AM CDT [facility] MPV 9.3(L) 9.7 - 11.9 FL 09/15/2024 5:57 AM CDT [facility] RBC MORPHOLOGY NORMAL 09/15/2024 5:57 AM CDT [facility] PLT MORPH. NORMAL 09/15/2024 5:57 AM CDT [facility] WBC MORPHOLOGY NORMAL 09/15/2024 5:57 AM CDT [facility] LYMPHOCYTES % 9.5(L) 15.8 - 45.0 % 09/15/2024 5:57 AM CDT [facility] NEUTROPHILS % 80.2(H) 42.1 - 71.9 % 09/15/2024 5:57 AM CDT [facility] MONOCYTES % 7.0 5.7 - 12.5 % 09/15/2024 5:57 AM CDT [facility] EOSINOPHILS 2.2 0.0 - 5.6 % 09/15/2024 5:57 AM CDT [facility] BASOPHILS 0.7 0.0 - 1.3 % 09/15/2024 5:57 AM CDT [facility] ABS. NEUTROPHILS 8.97(H) 1.40 - 6.00 x10'3/uL 09/15/2024 5:57 AM CDT [facility] IMMATURE GRANS % 0.4 0.0 - 0.5 % 09/15/2024 5:57 AM CDT [facility] ABS. LYMPHOCYTES 1.06 0.80 - 4.70 x10'3/uL 09/15/2024 5:57 AM CDT [facility] 09/15/2024 5:43 AM CDT Basil Bart Segov[facility] Final Result [facility] [address] [place] [address], * XR HEEL LT MIN 2V (09/14/2024 [...] 12:45 PM Narrative 09/14/2024 12:[address] [facility] [address] [place] [address] Examination: Left calcaneus. Exam time: 1230 hours. [...] Procedure Note Alex Araiza MD - 09/14/2024 [place] [address] [place] [address] Examination: Left calcaneus. Exam time: 1230 hours. [...] By: Alex Araiza MD, 09/14/2024 12:45 PM Darah R Dodt [facility] Final Result * (ABNORMAL) BASIC METABOLIC PANEL (09/14/2024 5:15 AM CDT) [facility] GLUCOSE 124(H) 70 - 99 MG/DL 09/14/2024 6:20 AM T [facility] BUN 15 7 - 18 MG/DL 09/14/2024 6:20 AM T [facility] CREATININE S/P/B 1.03 0.7 - 1.3 MG/DL 09/14/2024 6:20 AM [facility] SODIUM S/P/B 136 136 - 145 MMOL/L 09/14/2024 6:20 AM [facility] POTASSIUM S/P/B 3.5 3.5 - 5.1 MMOL/L 09/14/2024 6:20 AM [facility] CHLORIDE S/P/B 102 100 - 108 MMOL/L 09/14/2024 6:20 AM [facility] CO2 22.3 21 - 32 MMOL/L 09/14/2024 6:20 AM [facility] CALCIUM S/P/B 8.7 8.5 - 10.1 MG/DL 09/14/2024 6:20 AM [facility] ANION GAP 11.7 5 - 15 MMOL/L 09/14/2024 6:20 AM [facility] BUN CREATININE RATIO 14.6 6 - 26 09/14/2024 6:20 AM [facility] GFR ESTIMATE 81(L) >90 ML/MIN/1.7 3 M2 09/14/2024 6:20 AM [facility] Comment: NOTE: eGFR is not calculated for patients <18 years of age. This is an estimated GFR calculation using the new CKD EPI creatinine equation without race and so does not require a correction factor for race. This estimated GFR should not be used for calculating drug doses. 09/14/2024 5:15 AM CDT Fabi Little MD LABORATORY Final Result [facility] [address] [place] [address], [place] [phone] * (ABNORMAL) CBC W/DIFF AUTOMATED (09/14/2024 5:15 AM CDT) WBC 17.56(H) 4.4 - 11.0 x10'3/uL 09/14/2024 5:59 AM CDT [facility] RBC 4.12(L) 4.50 - 5.90 x10'6/uL 09/14/2024 5:59 AM CDT [facility] HGB 12.0(L) 14.0 - 17.5 G/DL 09/14/2024 5:59 AM CDT [facility] HCT 36.1(L) 41.5 - 50.4 % 09/14/2024 5:59 AM CDT [facility] MCV 87.6 80.0 - 96.0 FL 09/14/2024 5:59 AM CDT [facility] MCH 29.1 26.5 - 31.4 PG 09/14/2024 5:59 AM CDT [facility] MCHC 33.2 31.9 - 34.8 G/DL 09/14/2024 5:59 AM CDT [facility] RDW 15.3(H) 12.3 - 14.3 % 09/14/2024 5:59 AM CDT [facility] PLT 218 151 - 353 x10'3/uL 09/14/2024 5:59 AM CDT [facility] MPV 9.7 9.7 - 11.9 FL 09/14/2024 5:59 AM CDT [facility] RBC MORPHOLOGY NORMAL 09/14/2024 5:59 AM CDT [facility] PLT MORPH. NORMAL 09/14/2024 5:59 AM CDT [facility] WBC MORPHOLOGY NORMAL 09/14/2024 5:59 AM CDT [facility] LYMPHOCYTES % 5.2(L) 15.8 - 45.0 % 09/14/2024 5:59 AM CDT [facility] NEUTROPHILS % 87.2(H) 42.1 - 71.9 % 09/14/2024 5:59 AM CDT [facility] MONOCYTES % 6.0 5.7 - 12.5 % 09/14/2024 5:59 AM CDT [facility] EOSINOPHILS 0.1 0.0 - 5.6 % 09/14/2024 5:59 AM CDT [facility] BASOPHILS 0.6 0.0 - 1.3 % 09/14/2024 5:59 AM CDT [facility] ABS. NEUTROPHILS 15.32(H) 1.40 - 6.00 x10'3/uL 09/14/2024 5:59 AM CDT [facility] IMMATURE GRANS % 0.9(H) 0.0 - 0.5 % 09/14/2024 5:59 AM CDT [facility] ABS. LYMPHOCYTES 0.92 0.80 - 4.70 x10'3/uL 09/14/2024 5:59 AM CDT [facility] 09/14/2024 5:15 AM CDT us Fabi Little MD LABORATORY Final Result [facility] [address] [place] [address], [place] [phone] * (ABNORMAL) LACTIC ACID W REFLEX (SEPSIS) (09/13/2024 10:21 PM CDT) LACTIC ACID VENOUS 2.1(HH) 0.4 - 2.0 MMOL/L 09/13/2024 10:55 PM CDT [facility] Comment: Critical Result(s) Called at: 22:55:01 on 09/13/2024 by: MATHIEU JOHNSON to and read back by:RENETTA RQOUE IN ED 09/13/2024 10:2 1 PM CDT us Joseline Alvarado MD LABORATORY Final Resu lt Performing Organization Address [facility]/ZIP Co de Phone Number [facility] [address] [place] [address], [place] [phone] * (ABNORMAL) LACTIC ACID W REFLEX (SEPSIS) (09/13/2024 8:09 PM CDT) LACTIC ACID VENOUS 2.3(HH) 0.4 - 2.0 MMOL/L 09/13/2024 8:52 PM CDT [facility] Comment: Critical Result(s) Called at: 20:52:01 on 09/13/2024 by: MATHIEU JOHNSON to and read back by: ZEINA GORMAN RN IN ED 09/13/2024 8:09 PM CDT us Joseline Alvarado MD LABORATORY Final Resu lt [facility] [address] [place] [address], [place] [phone] * Central Line (09/13/2024 6:00 PM CDT) Narrative Joseline Alvarado MD - 09/13/2024 6:00 PM CDT Joseline Alvarado MD 09/13/2024 7:24 PM Central Line Date/Time: 09/13/2024 6:00 PM Performed by: Joseline Alvarado MD Authorized by: Josleine Alvarado MD Consent: Consent obtained: Written Consent given by: Patient Risks discussed: Arterial puncture, incorrect placement, pneumothorax and infection Alternatives discussed: Delayed treatment Huntly protocol: Patient identity confirmed: Verbally with patient [...] SURGICAL O RDERABLES Final Result * (ABNORMAL) LACTIC ACID W REFLEX (SEPSIS) (09/13/2024 4:14 PM CDT) LACTIC ACID VENOUS 4.6(HH) 0.4 - 2.0 MMOL/L 09/13/2024 4:51 PM CDT [facility] Comment: Critical Result(s) Called at: 16:49:58 on 09/13/2024 by: VALORIE POP to and read back by:CALLY IN ER 09/13/2024 4:14 PM CDT Joseline Alvarado MD LABORATORY Final Resu lt [facility] [address] [place] [address], [place] [phone] * (ABNORMAL) COMPREHENSIVE METABOLIC PANEL (09/13/2024 4:14 PM CDT) GLUCOSE 113(H) 70 - 99 MG/DL 09/13/2024 4:37 PM T [facility] BUN 16 7 - 18 MG/DL 09/13/2024 4:37 PM T [facility] CREATININE S/P/B 1.47(H) 0.7 - 1.3 MG/DL 09/13/2024 4:37 PM T [facility] SODIUM S/P/B 132(L) 136 - 145 MMOL/L 09/13/2024 4:37 PM T [facility] POTASSIUM S/P/B 4.4 3.5 - 5.1 MMOL/L 09/13/2024 4:37 PM T [facility] CHLORIDE S/P/B 97(L) 100 - 108 MMOL/L 09/13/2024 4:37 PM T [facility] CO2 20.2(L) 21 - 32 MMOL/L 09/13/2024 4:37 PM T [facility] CALCIUM S/P/B 9.1 8.5 - 10.1 MG/DL 09/13/2024 4:37 PM T [facility] BILIRUBIN TOTAL S/P/B 0.6 0.2 - 1.2 MG/DL 09/13/2024 4:37 PM T [facility] TOTAL PROTEIN S/P/B 7.6 6.4 - 8.2 G/DL 09/13/2024 4:37 PM T [facility] ALBUMIN S/P/B 3.1(L) 3.4 - 5.0 G/DL 09/13/2024 4:37 PM T [facility] AST 28 15 - 37 U/L 09/13/2024 4:37 PM T [facility] ALT 28 16 - 60 U/L 09/13/2024 4:37 PM CDT [facility] ALKALINE PHOSPHATASE S/P/B 92 50 - 136 U/L 09/13/2024 4:37 PM CDT [facility] ANION GAP 14.8 5 - 15 MMOL/L 09/13/2024 4:37 PM CDT [facility] BUN CREATININE RATIO 10.9 6 - 26 09/13/2024 4:37 PM CDT [facility] A/G RATIO 0.7(L) 1.0 - 2.0 RATIO 09/13/2024 4:37 PM CDT [facility] GFR ESTIMATE 53(L) >90 ML/MIN/1.7 3 M2 09/13/2024 4:37 PM CDT [facility] Comment: NOTE: eGFR is not calculated for patients <18 years of age. This is an estimated GFR calculation using the new CKD EPI creatinine equation without race and so does not require a correction factor for race. This estimated GFR should not be used for calculating drug doses. 09/13/2024 4:14 PM CDT us Joseline Alvarado MD LABORATORY Final Resu lt [facility] [address] [place] [address], [place] [phone] * (ABNORMAL) CBC W/DIFF AUTOMATED (09/13/2024 4:14 PM CDT) WBC 21.49(H) 4.4 - 11.0 x10'3/uL 09/13/2024 4:25 PM CDT [facility] RBC 4.78 4.50 - 5.90 x10'6/uL 09/13/2024 4:25 PM CDT [facility] HGB 14.0 14.0 - 17.5 G/DL 09/13/2024 4:25 PM CDT [facility] HCT 42.3 41.5 - 50.4 % 09/13/2024 4:25 PM CDT [facility] MCV 88.5 80.0 - 96.0 FL 09/13/2024 4:25 PM CDT [facility] MCH 29.3 26.5 - 31.4 PG 09/13/2024 4:25 PM CDT [facility] MCHC 33.1 31.9 - 34.8 G/DL 09/13/2024 4:25 PM CDT [facility] RDW 15.0(H) 12.3 - 14.3 % 09/13/2024 4:25 PM T [facility] PLT 258 151 - 353 x10'3/uL 09/13/2024 4:25 PM T [facility] MPV 9.4(L) 9.7 - 11.9 FL 09/13/2024 4:25 PM CDT [facility] RBC MORPHOLOGY NORMAL 09/13/2024 4:25 PM T [facility] PLT MORPH. NORMAL 09/13/2024 4:25 PM T [facility] WBC MORPHOLOGY NORMAL 09/13/2024 4:25 PM T [facility] LYMPHOCYTES % 1.3(L) 15.8 - 45.0 % 09/13/2024 4:25 PM CDT [facility] NEUTROPHILS % 94.6(H) 42.1 - 71.9 % 09/13/2024 4:25 PM CDT [facility] MONOCYTES % 2.8(L) 5.7 - 12.5 % 09/13/2024 4:25 PM CDT [facility] EOSINOPHILS 0.2 0.0 - 5.6 % 09/13/2024 4:25 PM CDT [facility] BASOPHILS 0.2 0.0 - 1.3 % 09/13/2024 4:25 PM CDT [facility] ABS. NEUTROPHILS 20.31(H) 1.40 - 6.00 x10'3/uL 09/13/2024 4:25 PM CDT [facility] IMMATURE GRANS % 0.9(H) 0.0 - 0.5 % 09/13/2024 4:25 PM CDT [facility] ABS. LYMPHOCYTES 0.29(L) 0.80 - 4.70 x10'3/uL 09/13/2024 4:25 PM CDT [facility] 09/13/2024 4:14 PM CDT Joseline Alvarado MD LABORATORY Final Resu lt [facility] [address] [place] [address], * (ABNORMAL) CULTURE URINE (09/13/2024 1:45 PM CDT) SPEC DESCRIPTION URINE STRAIGHT CATH 09/13/2024 2:18 PM CDT [facility] SPECIAL REQUESTS NO SPECIAL REQUEST 09/13/2024 2:18 PM CDT [facility] CULTURE RESULT 50,000-100,0 00 COL/ML ESCHERICHIA COLI (A) 09/16/2024 7:12 AM CDT [facility] URINE SPECIMEN OBTAINED BY SINGLE [...] Escherichia coli TRIMETH-SULFAMETH. CANDIE (VITEK) >=320: Resistant us Joseline Alvarado MD MICROBIOLOGY - GENERAL ORD ERABLES Final Result [facility] [address] [place] [address], [place] [phone] [facility] [address] [place] [address], [place] [phone] * (ABNORMAL) URINALYSIS, AUTO, COMPLETE (09/13/2024 1:45 PM CDT) COLOR (U) DARK YELLOW 09/13/2024 2:09 PM CDT [facility] TRANSPARENCY TURBID 09/13/2024 2:09 PM CDT [facility] SPECIFIC GRAVITY (U) 1.020 1.000 - 1.030 09/13/2024 2:09 PM CDT [facility] U PH 8.0 5.0 - 9.0 09/13/2024 2:09 PM CDT [facility] LEUKOCYTES (U) 3+(A) NEGATIVE 09/13/2024 2:09 PM CDT [facility] NITRITES NEGATIVE NEGATIVE 09/13/2024 2:09 PM CDT [facility] PROTEIN RANDOM (U) 1+(A) NEGATIVE 09/13/2024 2:09 PM CDT [facility] GLUCOSE (U) NEGATIVE NEGATIVE 09/13/2024 2:09 PM CDT [facility] KETONES MG/DL (U) NEGATIVE NEGATIVE 09/13/2024 2:09 PM CDT [facility] BILIRUBIN (U) NEGATIVE NEGATIVE 09/13/2024 2:09 PM CDT [facility] BLOOD (U) 3+(A) NEGATIVE 09/13/2024 2:09 PM CDT [facility] WBC/HPF 50-100 0 - 5 /HPF 09/13/2024 2:09 PM CDT [facility] RBC/HPF 50-100 0 - 5 /HPF 09/13/2024 2:09 PM CDT [facility] EPI/HPF FEW /HPF 09/13/2024 2:09 PM CDT [facility] CRYSTALS (U) FEW /HPF 09/13/2024 2:09 PM CDT [facility] Comment:TRIPLE PHOSPHATE BACTERIA (U) MANY /HPF 09/13/2024 2:09 PM CDT [facility] URINE, STRAIGHT CATH 09/13/2024 1:45 PM CDT us Joseline Alvarado MD URINE ORDERABLES Final Res ult [facility] [address] [place] [address], [place] [phone] * Critical Care (09/13/2024 1:02 PM CDT) [...] or surrogate Care discussed with: admitting provider Joseline Alvarado MD PROCEDURE/MINOR SURGICAL O RDERABLES Final Result documented in this encounter Visit Diagnoses Diagnosis Complicated UTI (urinary tract infection)- Primary Urinary tract infection, site not specified Sepsis ([facility]) UTI (urinary tract infection) Urinary tract infection, site not specified Acute on chronic urinary retention Complicated UTI (urinary tract infection) Urinary tract infection, site not specified documented in this encounter Admitting Diagnoses Diagnosis Complicated UTI (urinary tract infection) Urinary tract infection, site not specified documented in this encounter Administered Medications Inactive Administered Medications - up to 3 most recent administrations Medication Order MAR Action Action Date Dose Rate Site acetaminophen (TYLENOL) tablet 650 mg 650 mg, Oral, Every 4 hours PRN, Mild pain (Scale 1 - 3), Starting on 09/13/24 at 2317, Until Sun09/16/24 at 1512, Maximum dose of acetaminophen is 4000 mg from all sources in 24 hours. Given 09/16/2024 1:23 AM CDT 650 mg amLODIPine (NORVASC) tablet 5 mg 5 mg, Oral, Daily, First dose on Sun09/16/24 at 1115, Until Discontinued atorvastatin (LIPITOR) tablet 20 mg 20 mg, Oral, Daily, First dose on Sun09/14/24 at 1100, Until Discontinued Given 09/16/2024 8:28 AM CDT 20 mg Given 09/15/2024 8:30 AM CDT 20 mg baclofen (LIORESAL) tablet 10 mg 10 mg, Oral, Nightly at bedtime, First dose on Sun09/14/24 at 2100, Until Discontinued Given 09/15/2024 8:20 PM CDT 10 m g Given 09/14/2024 8:10 PM CDT 10 mg calcium carbonate (TUMS) chewable tablet 500 mg 500 mg, Oral, Daily as needed, Indigestion, Starting on Sun09/14/24 at 0005, Until Sun09/16/24 at 1512 Given 09/14/2024 12:16 AM CDT 500 mg cefTRIAXone (ROCEPHIN) 2 g in lidocaine (PF) (XYLOCAINE) 1 % IM syringe 2 g (rounded from 2,000 mg), Intramuscular, Once, 1 dose, On Sun09/13/24 at 1545, Reconstitute 1 g vial with 2.1 mL of ordered diluent resulting in final concentration of 350 mg/mL. Then withdraw appropriate volume for patient specific dose. Given 09/13/2024 4:02 PM CDT 2 g Left Ventrogluteal cefTRIAXone (ROCEPHIN) 2 g in sterile water 20 mL IV 2 g, Intravenous, at 240 mL/hr, Every 24 hours, 6 doses, First dose on Sun09/14/24 at 1600, Last dose on Sun09/19/24 at 1100, Administer over at least 5 minutes. Given 09/16/2024 10:50 AM CDT 2 g 240 mL/hr Given 09/15/2024 3:54 PM CDT 2 g 240 mL/hr Given 09/14/2024 3:44 PM CDT 2 g 240 mL/hr enoxaparin (LOVENOX) 40 MG/0.4ML syringe 40 mg 40 mg, Subcutaneous, Nightly (enoxaparin), First dose on 09/13/24 at 2345, Until Discontinued, Administer by deep SubQ injection alternating between the left or right anterolateral and left or right posterolateral abdominal wall. Given 09/13/2024 11:53 PM CDT 40 mg Right Lower Abdomen enoxaparin (LOVENOX) 40 MG/0.4ML syringe 40 mg 40 mg, Subcutaneous, Every 12 hours scheduled (2 times per day), First dose (after last modification) on Sun09/14/24 at 0900, Until Discontinued, Q12h dosing for BMI > 40 Administer by deep SubQ injection alternating between the left or right anterolateral and left or right posterolateral abdominal wall. Given 09/16/2024 8:28 AM CDT 40 mg Left Lower Abdomen Given 09/15/2024 8:20 PM CDT 40 mg Ri ght Lower Abdomen Given 09/15/2024 8:30 AM CDT 40 mg Le ft Lower Abdomen heparin lock flush 10 unit/mL injection 3 mL 3 mL, Intracatheter, As needed, Line care, Starting on 09/14/24 at 0541, Until Sun09/16/24 at 1512 Given 09/16/2024 5:10 AM CDT 3 mLs Given 09/14/2024 8:59 AM CDT 3 mLs HYDROcodone-acetaminophen (NORCO) 5-325 MG tablet 1 tablet 1 tablet, Oral, Every 4 hours PRN, Moderate pain (Scale 4 - 7), Starting on 09/13/24 at 2317, Until Sun09/16/24 at 1512, Maximum dose of acetaminophen is 4000 mg from all sources in 24 hours. Given 09/15/2024 11:11 PM CDT 1 tab let Given 09/15/2024 8:30 AM CDT 1 tablet lactated ringers bolus infusion 1,000 mL 1,000 mL, Intravenous, Administer over 30 Minutes, Once, 1 dose, On 09/13/24 at 1930 New Bag 09/13/2024 8:17 PM CDT 1,000 mLs 2000 mL/hr lactated ringers bolus infusion 1,000 mL 1,000 mL, Intravenous, Administer over 30 Minutes, Once, 1 dose, On 09/13/24 at 2000 New Bag 09/13/2024 9:18 PM CDT 1,000 mLs 2000 mL/hr lactated ringers bolus infusion 1,000 mL 1,000 mL, Intravenous, Administer over 30 Minutes, Once, 1 dose, On 09/13/24 at 2030, RN to infuse total volume of 2604 mL (30 ml/kg in [place] Body Weight) including prior to arrival and / or prediagnosis fluids. New Bag 09/13/2024 10:24 PM CDT 1,000 mLs 2000 mL/hr lactated ringers infusion 1 dose, Starting on 09/13/24 at 2223, Until 09/13/24 at 2320, Created by ted mota levothyroxine (SYNTHROID) tablet 50 mcg 50 mcg, Oral, Daily (levothyroxine), First dose on 09/14/24 at 1100, Until Discontinued, Avoid iron, calcium, and antacids within 4 hours of administration. Given 09/16/2024 5:10 AM CDT 50 mcg Given 09/15/2024 5:15 AM CDT 50 mcg ondansetron (ZOFRAN) injection 4 mg 4 mg, Intravenous, Every 8 hours PRN, Nausea, Vomiting, Starting on 09/13/24 at 2317, Until 09/14/24 at 1033, IV push over 2-5 minutes. Given 09/14/2024 8:59 AM CDT 4 mg Given 09/13/2024 11:59 PM CDT 4 mg pantoprazole (PROTONIX) 40 mg in sodium chloride (PF) 0.9 % 10 mL IV 40 mg, Intravenous, Daily, First dose on 09/14/24 at 0515, Until Discontinued, Reconstitute each 40 mg vial with 10 mL normal saline to a final concentration of 4 mg/mL. Administer intravenously over a period of a least 2 minutes. Given 09/14/2024 5:03 AM CDT 40 mg pantoprazole EC (PROTONIX) tablet 40 mg 40 mg, Oral, Daily, First dose on 09/15/24 at 0900, Until Discontinued, Do not break, chew, or crush. Given 09/16/2024 8:28 AM CDT 40 mg Given 09/15/2024 8:30 AM CDT 40 mg prochlorperazine (COMPAZINE) injection 10 mg 10 mg, Intravenous, Every 6 hours PRN, Nausea, Vomiting, Starting on 09/14/24 at 1033, Until 09/16/24 at 1512, If giving IV, administer diluted or undiluted by slow IV push at a maximum rate of 5 mg/minute. To reduce the risk of hypotension the patient must remain lying down and be observed for 30 minutes after receiving the medication. IM administration: Outer gluteal muscle Given 09/14/2024 11:41 PM CDT 10 mg Given 09/14/2024 4:20 PM CDT 10 mg Given 09/14/2024 10:48 AM CDT 10 mg sodium chloride 0.9% infusion at 125 mL/hr, Intravenous, Continuous, Starting on 09/13/24 at 2345, Until 09/15/24 at 0838 New Bag 09/15/2024 2:49 AM CDT 125 mL/hr New Bag 09/14/2024 10:25 AM CDT 125 mL/hr New Bag 09/13/2024 11:53 PM CDT 125 mL/hr documented in this encounter Active and Recently Administered Medications Times are shown in CDT. Scheduled Medication Order 09/14/2024 09/15/2024 09/16/2024 amLODIPine (NORVASC) tablet 5 mg 5 mg, Oral, Daily, First dose on Sun09/16/24 at 1115, Until Discontinued 1202 (Hold - Provider: Valorie Billings RN - Reason: Other) atorvastatin (LIPITOR) tablet 20 mg 20 mg, Oral, Daily, First dose on Sun09/14/24 at 1100, Until Discontinued 1130 (Not Given - Provider: Sonia Barrera RN - Reason: Patient/family declined - Comment: refused due to nausea) 829 (Given - Provider: Valorie Billings RN) 827 (Given - Provider: aVlorie Billings RN) baclofen (LIORESAL) tablet 10 mg 10 mg, Oral, Nightly at bedtime, First dose on Sun09/14/24 at 2100, Until Discontinued 2009 (Given - Provider: Cici Alatorre, RN) 2019 (Given - Provider: Sujata Cleaning RN) cefTRIAXone (ROCEPHIN) 2 g in sterile water 20 mL IV 2 g, Intravenous, at 240 mL/hr, Every 24 hours, 6 doses, First dose on Sun09/14/24 at 1600, Last dose on Sun09/19/24 at 1100, Administer over at least 5 minutes. 1544 (Given - Provider: Sonia Barrera RN) 1554 (Given - Provider: Valorie Billings RN) 1050 (Given - Provider: Valorie Billings, JUDE) enoxaparin (LOVENOX) 40 MG/0.4ML syringe 40 mg(Linked Group 1) 40 mg, Subcutaneous, Every 12 hours scheduled (2 times per day), First dose (after last modification) on Sun09/14/24 at 0900, Until Discontinued, Q12h dosing for BMI > 40 Administer by deep SubQ injection alternating between the left or right anterolateral and left or right posterolateral abdominal wall. 904 (Given - Provider: Sonia Barrera RN)2008 (Given - Provider: Cici Alatorre RN) 0830 (Given - Provider: Valorie Billings RN)2019 (Given - Provider: Sujata Cleaning RN) 0828 (Given - Provider: Valorie Billings RN) levothyroxine (SYNTHROID) tablet 50 mcg 50 mcg, Oral, Daily (levothyroxine), First dose on 09/14/24 at 1100, Until Discontinued, Avoid iron, calcium, and antacids within 4 hours of administration. 1130 (Not Given - Provider: Sonia Barrera RN - Reason: Patient/family declined - Comment: refused due to nausea) 0515 (Given - Provider: Cici Alatorre RN) 0510 (Given - Provider: Sujata Cleaning RN) pantoprazole (PROTONIX) 40 mg in sodium chloride (PF) 0.9 % 10 mL IV (CANCELED) 40 mg, Intravenous, Daily, First dose on 09/14/24 at 0515, Until Discontinued, Reconstitute each 40 mg vial with 10 mL normal saline to a final concentration of 4 mg/mL. Administer intravenously over a period of a least 2 minutes. 0503 (Given - Provider: Sujata Cleaning RN) pantoprazole EC (PROTONIX) tablet 40 mg 40 mg, Oral, Daily, First dose on Sun09/15/24 at 0900, Until Discontinued, Do not break, chew, or crush. 0830 (Given - Provider: Valorie Billings RN) 0828 (Given - Provider: Valorie Billings RN) Continuous Medication Order 09/14/2024 09/15/2024 09/16/2024 sodium chloride 0.9% infusion (CANCELED) at 125 mL/hr, Intravenous, Continuous, Starting on 09/13/24 at 2345, Until 09/15/24 at 0838 1025 (New Bag - Provider: Sonia Barrera RN) 0249 (New Bag - Provider: Aimee Vogt RN)0844 (Infusion Stop Time - Provider: Valorie Billings RN) PRN Medication Order 09/14/2024 09/15/2024 09/16/2024 acetaminophen (TYLENOL) tablet 650 mg 650 mg, Oral, Every 4 hours PRN, Mild pain (Scale 1 - 3), Starting on 3/29/25 at 2317, Until 09/16/24 at 1512, Maximum dose of acetaminophen is 4000 mg from all sources in 24 hours. 0123 (Given - Provider: Sujata Cleaning RN) calcium carbonate (TUMS) chewable tablet 500 mg 500 mg, Oral, Daily as needed, Indigestion, Starting on 09/14/24 at 0005, Until 09/16/24 at 1512 0016 (Given - Provider: Sujata Cleaning RN) heparin lock flush 10 unit/mL injection 3 mL 3 mL, Intracatheter, As needed, Line care, Starting on 09/14/24 at 0541, Until 09/16/24 at 1512 0859 (Given - Provider: Sonia Barrera RN) 0510 (Given - Provider: Sujata Cleaning RN) HYDROcodone-acetaminophe n (NORCO) 5-325 MG tablet 1 tablet 1 tablet, Oral, Every 4 hours PRN, Moderate pain (Scale 4 - 7), Starting on 09/13/24 at 2317, Until 09/16/24 at 1512, Maximum dose of acetaminophen is 4000 mg from all sources in 24 hours. 0830 (Given - Provider: Valorie Billings RN)2311 (Given - Provider: Sujata Cleaning RN) ondansetron (ZOFRAN) injection 4 mg (CANCELED) 4 mg, Intravenous, Every 8 hours PRN, Nausea, Vomiting, Starting on 09/13/24 at 2317, Until 09/14/24 at 1033, IV push over 2-5 minutes. 0859 (Given - Provider: Sonia Barrera, JUDE) prochlorperazine (COMPAZINE) injection 10 mg 10 mg, Intravenous, Every 6 hours PRN, Nausea, Vomiting, Starting on 09/14/24 at 1033, Until 09/16/24 at 1512, If giving IV, administer diluted or undiluted by slow IV push at a maximum rate of 5 mg/minute. To reduce the risk of hypotension the patient must remain lying down and be observed for 30 minutes after receiving the medication. IM administration: Outer gluteal muscle 1048 (Given - Provider: Sonia Barrera RN)1620 (Given - Provider: Sonia Barrera RN)3429 (Given - Provider: Cici Alatorre RN) Linked Groups Order Group 1: enoxaparin (LOVENOX) 40 MG/0.4ML syringe 40 mgJump to med 40 mg, Subcutaneous, Every 12 hours scheduled (2 times per day), First dose (after last modification) on 09/14/24 at 0900, Until Discontinued, Q12h dosing for BMI > 40 Administer by deep SubQ injection alternating between the left or right anterolateral and left or right posterolateral abdominal wall. documented in this encounter Care Teams Mangle Feeder Relationship Specialty Start Date End Date Non-Staff, Provider PCP - General UNKNOWN PHYSICIAN SPECIALTY 09/13/24 documented as of this encounter
--- OUTSIDE RECORDS SUMMARY | 2024-09-16 22:09 | XMS_ITS | Clinical Summary ---
Author Organization [facility] Address [address] [place] [address] Care Team Providers Care Personal Computer Network Analyst Name Role Phone Non-Staff, Provider Primary Care Provider Carlos lable Allergies Active Allergy Reactions Criticality Noted Date Comments Bacitracin-Polymyxin B Other (see comment) 08/17 [place] Vancomycin Redness 09/13/2024 Red man syndrome Medications [...] Type Department Care Team Description 09/16/2024 Telephone [facility] Wound Care [address] [place] [address] Remedios Fuller RN Follow Up Call (Wound care referral from IP stay. Patient already discharged. Called patient to see if would like to be seen at the wound care clinic for wound on his bottom. stated she would talk to and call back tomorrow and let us know if he would like to be seen at [facility].) 09/13/2024 12:42 PM CDT - 09/16/2024 1:12 PM CDT Hospital Encounter [facility] Med/Surg [address] [place] [address] Joseline Alvarado MD Mahtani, Andrew, MD Dodt, [...] from your doctor or pharmacy? Rarely 09/13/2024 [facility] Utilities Answer Date Recorded In the past 12 months has th e vushaper, gas, oil, or water [employer] threatened to shut off services in your [...] Never 09/13/2024 How often do you attend evangelical or gnosticism serv ices? Never 09/13/2024 Do you belong to any clubs o r organizations such as evangelical groups, unions, fraternal or athletic groups, or [...] any time in the past [address] [facility], were you homeless or living in a fci (including now)? No 09/13/2024 Sex and Gender [...] of3 resultswithin the time period is included. [facility] GLUCOSE 105(H) 70 - 99 MG/DL 09/16/2024 5:59 AM CDT [facility] BUN 10 7 - 18 MG/DL 09/16/2024 5:59 AM CDT [facility] CREATININE S/P/B 0.85 0.7 - 1.3 MG/DL 09/16/2024 5:59 AM CDT [facility] SODIUM S/P/B 138 136 - 145 MMOL/L 09/16/2024 5:59 AM CDT [facility] POTASSIUM S/P/B 4.0 3.5 - 5.1 MMOL/L 09/16/2024 5:59 AM CDT [facility] CHLORIDE S/P/B 104 100 - 108 MMOL/L 09/16/2024 5:59 AM CDT [facility] CO2 25.2 21 - 32 MMOL/L 09/16/2024 5:59 AM CDT [facility] CALCIUM S/P/B 9.2 8.5 - 10.1 MG/DL 09/16/2024 5:59 AM CDT [facility] ANION GAP 8.8 5 - 15 MMOL/L 09/16/2024 5:59 AM CDT [facility] BUN CREATININE RATIO 11.8 6 - 26 09/16/2024 5:59 AM CDT [facility] GFR ESTIMATE >90 >90 ML/MIN/1.7 3 M2 09/16/2024 5:59 AM CDT [facility] Comment: NOTE: eGFR is not calculated for patients <18 years of age. This is an estimated GFR calculation using the new CKD EPI creatinine equation without race and so does not require a correction factor for race. This estimated GFR should not be used for calculating drug doses. 09/16/2024 5:15 AM CDT Glenys Santana [employer] LABORATORY Final Result [facility] [address] [place] [address], * (ABNORMAL) CBC W/DIFF AUTOMATED (09/16/2024 5:15 AM CDT) Only the most recent of4 resultswithin the time period is included. WBC 7.96 4.4 - 11.0 x10'3/uL 09/16/2024 5:43 AM CDT [facility] RBC 4.25(L) 4.50 - 5.90 x10'6/uL 09/16/2024 5:43 AM CDT [facility] HGB 12.2(L) 14.0 - 17.5 G/DL 09/16/2024 5:43 AM CDT [facility] HCT 38.0(L) 41.5 - 50.4 % 09/16/2024 5:43 AM CDT [facility] MCV 89.4 80.0 - 96.0 FL 09/16/2024 5:43 AM CDT [facility] MCH 28.7 26.5 - 31.4 PG 09/16/2024 5:43 AM CDT [facility] MCHC 32.1 31.9 - 34.8 G/DL 09/16/2024 5:43 AM CDT [facility] RDW 15.3(H) 12.3 - 14.3 % 09/16/2024 5:43 AM CDT [facility] PLT 196 151 - 353 x10'3/uL 09/16/2024 5:43 AM CDT [facility] MPV 9.7 9.7 - 11.9 FL 09/16/2024 5:43 AM T [facility] RBC MORPHOLOGY NORMAL 09/16/2024 5:43 AM CDT [facility] PLT MORPH. NORMAL 09/16/2024 5:43 AM CDT [facility] WBC MORPHOLOGY NORMAL 09/16/2024 5:43 AM T [facility] LYMPHOCYTES % 21.9 15.8 - 45.0 % 09/16/2024 5:43 AM CDT [facility] NEUTROPHILS % 63.8 42.1 - 71.9 % 09/16/2024 5:43 AM CDT [facility] MONOCYTES % 9.0 5.7 - 12.5 % 09/16/2024 5:43 AM CDT [facility] EOSINOPHILS 3.5 0.0 - 5.6 % 09/16/2024 5:43 AM CDT [facility] BASOPHILS 1.4(H) 0.0 - 1.3 % 09/16/2024 5:43 AM CDT [facility] ABS. NEUTROPHILS 5.08 1.40 - 6.00 x10'3/uL 09/16/2024 5:43 AM CDT [facility] IMMATURE GRANS % 0.4 0.0 - 0.5 % 09/16/2024 5:43 AM CDT [facility] ABS. LYMPHOCYTES 1.74 0.80 - 4.70 x10'3/uL 09/16/2024 5:43 AM CDT [facility] 09/16/2024 5:15 AM CDT Basilmatheus Bart Santana [employer] [facility] Final Result Performing Organization Address City/State/[facility] Co de Phone Number [facility] [address] [place] [address], * XR HEEL LT MIN 2V (09/14/2024 [...] 12:45 PM Narrative 09/14/2024 12:54 PM CDT [facility] [address] [facility] [place] [address] Examination: Left calcaneus. Exam time: 1230 hours. [...] Procedure Note Alex Araiza MD - 09/14/2024 [facility] [address] [place] [address] Examination: Left calcaneus. Exam time: 1230 hours. [...] By: Alex Araiza MD, 09/14/2024 12:45 PM [facility] GENERAL IMAGING Final Result * (ABNORMAL) LACTIC ACID W REFLEX (SEPSIS) (09/13/2024 10:21 PM CDT) Only the most recent of3 resultswithin the time period is included. LACTIC ACID VENOUS 2.1(HH) 0.4 - 2.0 MMOL/L 09/13/2024 10:55 PM CDT [facility] Comment: Critical Result(s) Called at: 22:55:01 on 09/13/2024 by: MATHIEU JOHNSON to and read back by:RENETTA ROQUE IN ED 09/13/2024 10:2 1 PM CDT Joseline Alvarado MD LABORATORY Final Resu lt [facility] [address] [place] [address], [place] [phone] * Central Line (09/13/2024 6:00 PM CDT) Joseline Sandoval MD - 09/13/2024 6:00 PM CDT Joseline Alvarado MD 09/13/2024 7:24 PM Central Line Date/Time: 09/13/2024 6:00 PM Performed by: Joseline Alvarado MD Authorized by: Joseline Alvarado MD Consent: Consent obtained: Written Consent given by: Patient Risks discussed: Arterial puncture, incorrect placement, pneumothorax and infection Alternatives discussed: Delayed treatment [place] protocol: Patient identity confirmed: Verbally with patient [...] - 99 MG/DL 09/13/2024 4:37 PM CDT [facility] BUN 16 7 - 18 MG/DL 09/13/2024 4:37 PM CDT [facility] CREATININE S/P/B 1.47(H) 0.7 - 1.3 MG/DL 09/13/2024 4:37 PM T [facility] SODIUM S/P/B 132(L) 136 - 145 MMOL/L 09/13/2024 4:37 PM [facility] POTASSIUM S/P/B 4.4 3.5 - 5.1 MMOL/L 09/13/2024 4:37 PM [facility] CHLORIDE S/P/B 97(L) 100 - 108 MMOL/L 09/13/2024 4:37 PM T [facility] CO2 20.2(L) 21 - 32 MMOL/L 09/13/2024 4:37 PM [facility] CALCIUM S/P/B 9.1 8.5 - 10.1 MG/DL 09/13/2024 4:37 PM [facility] BILIRUBIN TOTAL S/P/B 0.6 0.2 - 1.2 MG/DL 09/13/2024 4:37 PM [facility] TOTAL PROTEIN S/P/B 7.6 6.4 - 8.2 G/DL 09/13/2024 4:37 PM [facility] ALBUMIN S/P/B 3.1(L) 3.4 - 5.0 G/DL 09/13/2024 4:37 PM [facility] AST 28 15 - 37 U/L 09/13/2024 4:37 PM [facility] ALT 28 16 - 60 U/L 09/13/2024 4:37 PM [facility] ALKALINE PHOSPHATASE S/P/B 92 50 - 136 U/L 09/13/2024 4:37 PM [facility] ANION GAP 14.8 5 - 15 MMOL/L 09/13/2024 4:37 PM [facility] BUN CREATININE RATIO 10.9 6 - 26 09/13/2024 4:37 PM CDT [facility] A/G RATIO 0.7(L) 1.0 - 2.0 RATIO 09/13/2024 4:37 PM CDT [facility] GFR ESTIMATE 53(L) >90 ML/MIN/1.7 3 M2 09/13/2024 4:37 PM CDT [facility] Comment: NOTE: eGFR is not calculated for patients <18 years of age. This is an estimated GFR calculation using the new CKD EPI creatinine equation without race and so does not require a correction factor for race. This estimated GFR should not be used for calculating drug doses. 09/13/2024 4:14 PM CDT us Joseline Alvarado MD LABORATORY Final Resu lt [facility] [address] [place] [address], [place] [phone] * (ABNORMAL) CULTURE URINE (09/13/2024 1:45 PM CDT) SPEC DESCRIPTION URINE STRAIGHT CATH 09/13/2024 2:18 PM CDT [facility] SPECIAL REQUESTS NO SPECIAL REQUEST 09/13/2024 2:18 PM CDT [facility] CULTURE RESULT 50,000-100,0 00 COL/ML ESCHERICHIA COLI (A) 09/16/2024 7:12 AM CDT [facility] URINE SPECIMEN OBTAINED BY SINGLE [...] MICROBIOLOGY - GENERAL ORD ERABLES Final Result [facility] [address] [place] [address], [place] [phone] [facility] [address] [place] [address], [place] [phone] * (ABNORMAL) URINALYSIS, AUTO, COMPLETE (09/13/2024 1:45 PM CDT) COLOR (U) DARK YELLOW 09/13/2024 2:09 PM CDT [facility] TRANSPARENCY TURBID 09/13/2024 2:09 PM CDT [facility] SPECIFIC GRAVITY (U) 1.020 1.000 - 1.030 09/13/2024 2:09 PM CDT [facility] U PH 8.0 5.0 - 9.0 09/13/2024 2:09 PM CDT [facility] LEUKOCYTES (U) 3+(A) NEGATIVE 09/13/2024 2:09 PM CDT [facility] NITRITES NEGATIVE NEGATIVE 09/13/2024 2:09 PM CDT [facility] PROTEIN RANDOM (U) 1+(A) NEGATIVE 09/13/2024 2:09 PM CDT [facility] GLUCOSE (U) NEGATIVE NEGATIVE 09/13/2024 2:09 PM CDT [facility] KETONES MG/DL (U) NEGATIVE NEGATIVE 09/13/2024 2:09 PM CDT [facility] BILIRUBIN (U) NEGATIVE NEGATIVE 09/13/2024 2:09 PM CDT [facility] BLOOD (U) 3+(A) NEGATIVE 09/13/2024 2:09 PM CDT [facility] WBC/HPF 50-100 0 - 5 /HPF 09/13/2024 2:09 PM CDT [facility] RBC/HPF 50-100 0 - 5 /HPF 09/13/2024 2:09 PM CDT [facility] EPI/HPF FEW /HPF 09/13/2024 2:09 PM CDT [facility] CRYSTALS (U) FEW /HPF 09/13/2024 2:09 PM CDT [facility] Comment:TRIPLE PHOSPHATE BACTERIA (U) MANY /HPF 09/13/2024 2:09 PM CDT [facility] URINE, STRAIGHT CATH 09/13/2024 1:45 PM CDT us Joseline Alvarado MD URINE ORDERABLES Final Res ult [facility] [address] [place] [address], [place] [phone] * Critical Care (09/13/2024 1:02 PM CDT) [...] 10:34 AM 09/16/2024 3:17 PM Care Teams Personal Computer Network Analyst Relationship Specialty Start Date End Date Non-Staff, Provider PCP - General UNKNOWN PHYSICIAN SPECIALTY 09/13/24
--- OUTSIDE RECORDS SUMMARY | 2024-09-16 22:09 | XMS_ITS | Encounter Summary ---
Author Organization [facility] Address [address] [place] [address] Care Team Providers Care Assistant Product Manager Name Role Phone Non-Staff, Provider Primary Care [...] he would like to be seen at [facility]. Encounter Details Date Type Department Care Team (Late st Contact Info) Description 09/16/2024 Telephone [facility] Wound Care [address] [place] [address] Remedios Fuller, RN Follow Up Call (Wound care referral from IP stay. Patient already discharged. Called patient to see if would like to be seen at the wound care clinic for wound on his bottom. stated she would talk to and call back tomorrow and let us know if he would like to be seen at [facility].) Social History Tobacco Use Types Packs/Day Years [...] from your doctor or pharmacy? Rarely 09/13/2024 [facility] Utilities Answer Date Recorded In the past 12 months has th e electric, gas, oil, or water [employer] threatened to shut off services in your [...] Never 09/13/2024 How often do you attend zoroastrianism or gnosticism serv ices? Never 09/13/2024 Do you belong to any clubs o r organizations such as zoroastrianism groups, unions, fraternal or athletic groups, or [...] any time in the past 12 m [facility], were you homeless or living in a longterm (including now)? No 09/13/2024 Sex and Gender [...] PM CDT Sujata Cleaning RN Active * Are you blind [...] on filedocumented in this encounter Care Teams Assistant Product Manager Relationship Specialty Start Date End Date Non-Staff, Provider PCP - General UNKNOWN PHYSICIAN SPECIALTY 09/13/24 documented as of this encounter
--- OUTSIDE RECORDS SUMMARY | 2024-09-16 22:10 | XMS_ITS | Encounter Summary ---
Author Organization [facility] Address [address] [place] [address] Care Team Providers Care Morgue Librarian Name Role Phone Non-Staff, Provider Primary Care Provider Carlos ferreira Reason for Referral * (Routine) - New Request Specialty Diagnoses / Procedures Referred By Contac t Referred To Contact Procedures CENTRAL LINE Joseline Alvarado MD [address] [place] [address] Phone: tel: fax: Referral ID Status Reason Start Date Expiration Date V isits Requested Visits Authorized New Request 09/13/2024 09/13/2025 1 1 * (Routine) - New Request Specialty Diagnoses / Procedures Referred By Contac t Referred To Contact Procedures Critical Care Joseline Alvarado MD [address] [place] [address] Phone: tel: fax: Referral ID Status Reason Start Date Expiration Date V isits Requested Visits Authorized New Request 09/13/2024 09/13/2025 1 1 Reason for Visit * Reason Comments Urinary Retention * Auth/Cert (Routine) Specialty Diagnoses / Procedures Referred By Contac t Referred To Contact Diagnoses UTI (urinary tract infection) Acute on chronic urinary retention Sepsis ([facility]) Complicated UTI (urinary tract infection) Procedures NONE Fabi Little MD [address] [place] [address] Phone: tel:[phone] fax: Referral ID Status Reason Start Date Expiration Date Visits Re quested Visits Authorized [id number] 1 1 Encounter Details Date Type Department Care Team (Late st Contact Info) Description 09/13/2024 12:42 PM CDT - 09/16/2024 1:12 PM CDT Hospital Encounter [facility] [address] [place], [place] [id number] Joseline Alvarado MD [address] [place] [address] [phone] Fuad Aguilera MD [place], [place] [phone] (Work) [place] [address] Fabi Little MD [address] [place] [address] [phone] (Work) Urinary Retention Discharge Disposition: [...] from your doctor or pharmacy? Rarely 09/13/2024 [facility] Utilities Answer Date Recorded In the past 12 months has e [employer], [employer] (NIH), oil, or water tab ticketbroker threatened to shut off services in your [...] Never 09/13/2024 How often do you attend sabianist or taoism serv ices? Never 09/13/2024 Do you belong to any clubs o r organizations such as sabianist groups, unions, fraternal or athletic groups, or [...] any time in the past 12 m [facility], were you homeless or living in [...] actually gotten better. He follows with a customer service representative at [facility] and his said they were just seen [...] present on admission Follows with podiatry at [facility] and recently seent. Does not appear overtly [...] input(s): PH , PCO2 , PO2 , [id number] , BICARBWB , BASEDEFICIT , BASEEXCESS in [...] daily. If your blood pressure is higher [id number] you should take it. Keep a log [...] SEGOVIA APRN This note was dictated with [employer] medical dictation software; misspellings, punctuation errors, omitted [...] daily. If your blood pressure is higher [id number]/80 you should take it. Keep a log of your blood pressure to take with you to your primary care doctor appointment. You need to discuss this with your primary care doctor. * Attachments The following attachments cannot be sent through Care Everywhere. * How to Catheterize Yourself (Croatian) * Cefdinir, ADULT (Croatian) * How to Prevent Catheter Associated Urinary Tract Infections (Croatian) * High blood pressure in adults (Croatian) * Amlodipine, ADULT (Croatian) * Checking your blood pressure at home (Croatian) documented in this encounter Medications at Time [...] present: patient, spouse Patient's support system: family Church Affiliation/Spiritual Background: Cheondoism Radha community:none Notification of radha community desired: no Needs identified: Spiritual Care identified the following needs: Emotional: Demonstrating care and concern Spiritual/Church: Promoting a sense of peace/serenity Interventions: Spiritual Care facilitated with emotional/spiritual needs by: Spiritual: Accompanying patient in their spiritual/taoism practice of watching his favorite industrial engineering professor on tv. Providing active listening Conducting /blessing [...] 650 mg 650 mg Oral Q4H PRN Faib Little MD atorvastatin (LIPITOR) tablet 20 mg [...] 2 times per day Basilmatheus Arriaga Esther, SALES OPERATIONS ASSOCIATE 40 mg at 09/15/24 0830 heparin lock flush 10 unit/mL injection 3 mL 3 mL Intracatheter PRN Fabi Little MD 3 mL at 09/14/24 0859 HYDROcodone-acetaminophen (NORCO) 5-325 MG tablet 1 tablet 1 tablet Oral Q4H PRN Fabi Little MD 1 tablet at 09/15/24 0830 levothyroxine (SYNTHROID) tablet 50 mcg 50 mcg Oral Daily Basilmatheus Arriaga Esther, SALES OPERATIONS ASSOCIATE 50 mcg at 09/15/24 0515 pantoprazole EC (PROTONIX) tablet 40 mg 40 mg Oral Daily Glenys Segovia SALES OPERATIONS ASSOCIATE 40 mg at 09/15/24 0830 prochlorperazine (COMPAZINE) injection 10 mg 10 mg Intravenous Q6H PRN Glenys Bart Esther, SALES OPERATIONS ASSOCIATE 10 mg at 09/14/24 2341 sodium chloride 0.9% infusion Intravenous Continuous Fabi Little MD 125 mL/hr at 09/15/24 0249 New Bag at 09/15/24 0249 Allergies Allergen Reactions Neosporin [Bacitracin-Polymyxin B] Other (see comment) [place] Vancomycin Redness Red man syndrome ROS: 14 [...] present on admission Follows with podiatry at [facility] and recently seent. Does not appear overtly [...] discharge planning. This note was dictated with [employer] medical dictation software; misspellings, punctuation errors, omitted [...] private residence and plans to return at de DME: self caths, wc ADL's: Reports parapalegic prior to admission Transport Home: family Skin/Bladder/Bowel: self caths, colostomy A/O: Answers questions with intent and clarity. Communication: No deficits notes or reported Home Health: none current Occupation: none, construction accident in the past Address: Verified as accurate per chart. Pharmacy: [facility] PCP: Urologist Dr. Kennedy Medications: Pt denies concerns Insurance Plan: [facility] Financial: Pt denies concerns. Discharge Needs: No [...] DME Wheelchair Behavior Oriented;Cooperative Communication Talks;Understands speaking;Understands Croatian Psychosocial Need Indicator Mental health concerns No Diagnosis/prognosis resulting in poor adjustment or coping with illness No Diagnosis/prognosis with anticipated outcome of major lifestyle changes, including change in assisted living environment No Complex Family concerns No [...] [place] only - Is patient going to [facility]? No * Tatiana Graham RN - 09/13/2024 8:18 PM CDT PICC Placement Order Details: Order received for PICC placement. Chart reviewed. Indication for insertion: history of difficult access with multiple failed PIV attempts. Order verified with JUDE Santana. Time Out: Time out performed with JUDE Snatana. Patient???s name, date of , and armband [...] actually gotten better. He follows with a customer service representative at [facility] and his said they were just seen this week. History obtained via chart review, discussion with patient, , and review of outside records. Allergy Allergies Allergen Reactions Neosporin [Bacitracin-Polymyxin B] Other (see comment) [place] Vancomycin Redness Red man syndrome Medication list [...] Gatherings with Friends and Family: Never Attends Church Services: Never Active Member of Clubs or [...] input(s): PH , PCO2 , PO2 , [id number] , BICARBWB , BASEDEFICIT , BASEEXCESS in [...] present on admission Follows with podiatry at [facility] and recently seent. Does not appear overtly infected, on abx as above. Avoid pressure as much as possible. Wound consult appreciated. XR to r/o OM Hyponatremia-resolved Replete with IVF and monitor. Now normalized. 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 Turn Q2 Stage II decubitus Present on admission, to gluteus See treatment above IVCKI Did not bring in home CPAP unit. [...] this patient. This note was dictated with [employer] medical dictation software; misspellings, punctuation errors, omitted [...] and place IV unsuccessfully. Still waiting for Frederick to come place midline. IM antibiotics will [...] Course User Index [KG] Joseline Alvarado MD Medications sodium chloride 0.9 % [...] file Clinical impression: SNOMED CT(R) 1. Sepsis ([facility]) SEPSIS 2. UTI (urinary tract infection) URINARY TRACT INFECTIOUS DISEASE 3. Acute on chronic urinary retention [id number] RETENTION OF URINE Disposition: Admit Ramsey Wolf MD 09/13/2024 Ramsey Wolf MD [id number] * Cally Tom RN - 09/13/2024 5:33 PM CDT Call received from Cici at [facility], ETA 60-90 minutes. * Cally Tom RN - 09/13/2024 4:53 PM CDT Call to patients Nicole to update on results and plan of care. * Cally Tom RN - 09/13/2024 4:45 PM CDT Call to [facility] for ETA on staff arriving to place midline, per cici no eta available at this time. Will call when she is able to give a accurate ETA. * Cally Tom RN - 09/13/2024 2:48 PM CDT Call to [facility] to request midline placement for patient. [...] Reactions Neosporin [Bacitracin-Polymyxin B] Other (see comment) [place] Vancomycin Redness Red man syndrome MEDICATIONS: Prior [...] pneumothorax and infection Alternatives discussed: Delayed treatment Elmo protocol: Patient identity confirmed: Verbally with patient [...] progression, or side effects of treatment Sepsis ([facility]): acute illness or injury that poses a [...] and place IV unsuccessfully. Still waiting for Frederick to come place midline. IM antibiotics will [...] [KG] Joseline Alvarado MD Clinical Impression Sepsis ([facility]) (Primary) UTI (urinary tract infection) Acute on [...] BASIC METABOLIC PANEL (09/16/2024 5:15 AM CDT) [facility] Signature GLUCOSE 105(H) 70 - 99 MG/DL 09/16/2024 5:59 AM CDT [facility] BUN 10 7 - 18 MG/DL 09/16/2024 5:59 AM CDT [facility] CREATININE S/P/B 0.85 0.7 - 1.3 MG/DL 09/16/2024 5:59 AM CDT [facility] SODIUM S/P/B 138 136 - 145 MMOL/L 09/16/2024 5:59 AM CDT [facility] POTASSIUM S/P/B 4.0 3.5 - 5.1 MMOL/L 09/16/2024 5:59 AM CDT [facility] CHLORIDE S/P/B 104 100 - 108 MMOL/L 09/16/2024 5:59 AM CDT [facility] CO2 25.2 21 - 32 MMOL/L 09/16/2024 5:59 AM CDT [facility] CALCIUM S/P/B 9.2 8.5 - 10.1 MG/DL 09/16/2024 5:59 AM CDT [facility] ANION GAP 8.8 5 - 15 MMOL/L 09/16/2024 5:59 AM CDT [facility] BUN CREATININE RATIO 11.8 6 - 26 09/16/2024 5:59 AM CDT [facility] GFR ESTIMATE >90 >90 ML/MIN/1.7 3 M2 09/16/2024 5:59 AM CDT [facility] Comment: NOTE: eGFR is not calculated for patients <18 years of age. This is an estimated GFR calculation using the new CKD EPI creatinine equation without race and so does not require a correction factor for race. This estimated GFR should not be used for calculating drug doses. 09/16/2024 5:15 AM CDT Glenys Segovia APRN LABORATORY Final Result [facility] [address] [place] [address], [place] [phone] * (ABNORMAL) CBC W/DIFF AUTOMATED (09/16/2024 5:15 AM CDT) [facility] WBC 7.96 4.4 - 11.0 x10'3/uL 09/16/2024 5:43 AM CDT [facility] RBC 4.25(L) 4.50 - 5.90 x10'6/uL 09/16/2024 5:43 AM CDT [facility] HGB 12.2(L) 14.0 - 17.5 G/DL 09/16/2024 5:43 AM CDT [facility] HCT 38.0(L) 41.5 - 50.4 % 09/16/2024 5:43 AM CDT [facility] MCV 89.4 80.0 - 96.0 FL 09/16/2024 5:43 AM CDT [facility] MCH 28.7 26.5 - 31.4 PG 09/16/2024 5:43 AM CDT [facility] MCHC 32.1 31.9 - 34.8 G/DL 09/16/2024 5:43 AM CDT [facility] RDW 15.3(H) 12.3 - 14.3 % 09/16/2024 5:43 AM CDT [facility] PLT 196 151 - 353 x10'3/uL 09/16/2024 5:43 AM CDT [facility] MPV 9.7 9.7 - 11.9 FL 09/16/2024 5:43 AM CDT [facility] RBC MORPHOLOGY NORMAL 09/16/2024 5:43 AM CDT [facility] PLT MORPH. NORMAL 09/16/2024 5:43 AM CDT [facility] WBC MORPHOLOGY NORMAL 09/16/2024 5:43 AM CDT [facility] LYMPHOCYTES % 21.9 15.8 - 45.0 % 09/16/2024 5:43 AM CDT [facility] NEUTROPHILS % 63.8 42.1 - 71.9 % 09/16/2024 5:43 AM CDT [facility] MONOCYTES % 9.0 5.7 - 12.5 % 09/16/2024 5:43 AM CDT [facility] EOSINOPHILS 3.5 0.0 - 5.6 % 09/16/2024 5:43 AM CDT [facility] BASOPHILS 1.4(H) 0.0 - 1.3 % 09/16/2024 5:43 AM CDT [facility] ABS. NEUTROPHILS 5.08 1.40 - 6.00 x10'3/uL 09/16/2024 5:43 AM CDT [facility] IMMATURE GRANS % 0.4 0.0 - 0.5 % 09/16/2024 5:43 AM CDT [facility] ABS. LYMPHOCYTES 1.74 0.80 - 4.70 x10'3/uL 09/16/2024 5:43 AM CDT [facility] 09/16/2024 5:15 AM CDT Basil Bart Segovia SALES OPERATIONS ASSOCIATE LABORATORY Final Result Performing Organization Address City/State/[facility] Co de Phone Number [facility] [address] [place] [address], * (ABNORMAL) BASIC METABOLIC PANEL (09/15/2024 5:43 AM CDT) GLUCOSE 111(H) 70 - 99 MG/DL 09/15/2024 6:05 AM CDT [facility] BUN 8 7 - 18 MG/DL 09/15/2024 6:05 AM CDT [facility] CREATININE S/P/B 0.80 0.7 - 1.3 MG/DL 09/15/2024 6:05 AM CDT [facility] SODIUM S/P/B 140 136 - 145 MMOL/L 09/15/2024 6:05 AM CDT [facility] POTASSIUM S/P/B 3.9 3.5 - 5.1 MMOL/L 09/15/2024 6:05 AM CDT [facility] CHLORIDE S/P/B 106 100 - 108 MMOL/L 09/15/2024 6:05 AM T [facility] CO2 25.9 21 - 32 MMOL/L 09/15/2024 6:05 AM T [facility] CALCIUM S/P/B 8.7 8.5 - 10.1 MG/DL 09/15/2024 6:05 AM T [facility] ANION GAP 8.1 5 - 15 MMOL/L 09/15/2024 6:05 AM T [facility] BUN CREATININE RATIO 10.0 6 - 26 09/15/2024 6:05 AM T [facility] GFR ESTIMATE >90 >90 ML/MIN/1.7 3 M2 09/15/2024 6:05 AM T [facility] Comment: NOTE: eGFR is not calculated for patients <18 years of age. This is an estimated GFR calculation using the new CKD EPI creatinine equation without race and so does not require a correction factor for race. This estimated GFR should not be used for calculating drug doses. 09/15/2024 5:43 AM CDT Glenys Segovia SALES OPERATIONS ASSOCIATE LABORATORY Final Result [facility] [address] [place] [address], [place] [phone] * (ABNORMAL) CBC W/DIFF AUTOMATED (09/15/2024 5:43 AM CDT) [facility] WBC 11.19(H) 4.4 - 11.0 x10'3/uL 09/15/2024 5:57 AM CDT [facility] RBC 4.09(L) 4.50 - 5.90 x10'6/uL 09/15/2024 5:57 AM CDT [facility] HGB 12.0(L) 14.0 - 17.5 G/DL 09/15/2024 5:57 AM CDT [facility] HCT 36.7(L) 41.5 - 50.4 % 09/15/2024 5:57 AM CDT [facility] MCV 89.7 80.0 - 96.0 FL 09/15/2024 5:57 AM CDT [facility] MCH 29.3 26.5 - 31.4 PG 09/15/2024 5:57 AM CDT [facility] MCHC 32.7 31.9 - 34.8 G/DL 09/15/2024 5:57 AM CDT [facility] RDW 15.3(H) 12.3 - 14.3 % 09/15/2024 5:57 AM CDT [facility] PLT 191 151 - 353 x10'3/uL 09/15/2024 5:57 AM CDT [facility] MPV 9.3(L) 9.7 - 11.9 FL 09/15/2024 5:57 AM CDT [facility] RBC MORPHOLOGY NORMAL 09/15/2024 5:57 AM CDT [facility] PLT MORPH. NORMAL 09/15/2024 5:57 AM CDT [facility] WBC MORPHOLOGY NORMAL 09/15/2024 5:57 AM CDT [facility] LYMPHOCYTES % 9.5(L) 15.8 - 45.0 % 09/15/2024 5:57 AM CDT [facility] NEUTROPHILS % 80.2(H) 42.1 - 71.9 % 09/15/2024 5:57 AM CDT [facility] MONOCYTES % 7.0 5.7 - 12.5 % 09/15/2024 5:57 AM CDT [facility] EOSINOPHILS 2.2 0.0 - 5.6 % 09/15/2024 5:57 AM CDT [facility] BASOPHILS 0.7 0.0 - 1.3 % 09/15/2024 5:57 AM CDT [facility] ABS. NEUTROPHILS 8.97(H) 1.40 - 6.00 x10'3/uL 09/15/2024 5:57 AM CDT [facility] IMMATURE GRANS % 0.4 0.0 - 0.5 % 09/15/2024 5:57 AM CDT [facility] ABS. LYMPHOCYTES 1.06 0.80 - 4.70 x10'3/uL 09/15/2024 5:57 AM CDT [facility] 09/15/2024 5:43 AM CDT Basil Bart Segovia SALES OPERATIONS ASSOCIATE LABORATORY Final Result [facility] [address] [place] [address], * XR HEEL LT MIN 2V (09/14/2024 [...] 12:45 PM Narrative 09/14/2024 12:54 PM CDT [facility] [address] [place] [address] Examination: Left calcaneus. Exam time: 1230 hours. [...] Procedure Note Alex Araiza MD - 09/14/2024 [place] [address] [place] [address] Examination: Left calcaneus. Exam time: 1230 hours. [...] MD, 09/14/2024 12:45 PM Darah R Dodt SALES OPERATIONS ASSOCIATE GENERAL IMAGING Final Result * (ABNORMAL) BASIC METABOLIC PANEL (09/14/2024 5:15 AM CDT) [facility] GLUCOSE 124(H) 70 - 99 MG/DL 09/14/2024 6:20 AM T [facility] BUN 15 7 - 18 MG/DL 09/14/2024 6:20 AM T [facility] CREATININE S/P/B 1.03 0.7 - 1.3 MG/DL 09/14/2024 6:20 AM [facility] SODIUM S/P/B 136 136 - 145 MMOL/L 09/14/2024 6:20 AM [facility] POTASSIUM S/P/B 3.5 3.5 - 5.1 MMOL/L 09/14/2024 6:20 AM [facility] CHLORIDE S/P/B 102 100 - 108 MMOL/L 09/14/2024 6:20 AM [facility] CO2 22.3 21 - 32 MMOL/L 09/14/2024 6:20 AM [facility] CALCIUM S/P/B 8.7 8.5 - 10.1 MG/DL 09/14/2024 6:20 AM [facility] ANION GAP 11.7 5 - 15 MMOL/L 09/14/2024 6:20 AM [facility] BUN CREATININE RATIO 14.6 6 - 26 09/14/2024 6:20 AM [facility] GFR ESTIMATE 81(L) >90 ML/MIN/1.7 3 M2 09/14/2024 6:20 AM [facility] Comment: NOTE: eGFR is not calculated for patients <18 years of age. This is an estimated GFR calculation using the new CKD EPI creatinine equation without race and so does not require a correction factor for race. This estimated GFR should not be used for calculating drug doses. 09/14/2024 5:15 AM CDT Fabi Little MD LABORATORY Final Result [facility] [address] [place] [address], [place] [phone] * (ABNORMAL) CBC W/DIFF AUTOMATED (09/14/2024 5:15 AM CDT) WBC 17.56(H) 4.4 - 11.0 x10'3/uL 09/14/2024 5:59 AM CDT [facility] RBC 4.12(L) 4.50 - 5.90 x10'6/uL 09/14/2024 5:59 AM CDT [facility] HGB 12.0(L) 14.0 - 17.5 G/DL 09/14/2024 5:59 AM CDT [facility] HCT 36.1(L) 41.5 - 50.4 % 09/14/2024 5:59 AM CDT [facility] MCV 87.6 80.0 - 96.0 FL 09/14/2024 5:59 AM CDT [facility] MCH 29.1 26.5 - 31.4 PG 09/14/2024 5:59 AM CDT [facility] MCHC 33.2 31.9 - 34.8 G/DL 09/14/2024 5:59 AM CDT [facility] RDW 15.3(H) 12.3 - 14.3 % 09/14/2024 5:59 AM CDT [facility] PLT 218 151 - 353 x10'3/uL 09/14/2024 5:59 AM CDT [facility] MPV 9.7 9.7 - 11.9 FL 09/14/2024 5:59 AM CDT [facility] RBC MORPHOLOGY NORMAL 09/14/2024 5:59 AM CDT [facility] PLT MORPH. NORMAL 09/14/2024 5:59 AM CDT [facility] WBC MORPHOLOGY NORMAL 09/14/2024 5:59 AM CDT [facility] LYMPHOCYTES % 5.2(L) 15.8 - 45.0 % 09/14/2024 5:59 AM CDT [facility] NEUTROPHILS % 87.2(H) 42.1 - 71.9 % 09/14/2024 5:59 AM CDT [facility] MONOCYTES % 6.0 5.7 - 12.5 % 09/14/2024 5:59 AM CDT [facility] EOSINOPHILS 0.1 0.0 - 5.6 % 09/14/2024 5:59 AM CDT [facility] BASOPHILS 0.6 0.0 - 1.3 % 09/14/2024 5:59 AM CDT [facility] ABS. NEUTROPHILS 15.32(H) 1.40 - 6.00 x10'3/uL 09/14/2024 5:59 AM CDT [facility] IMMATURE GRANS % 0.9(H) 0.0 - 0.5 % 09/14/2024 5:59 AM CDT [facility] ABS. LYMPHOCYTES 0.92 0.80 - 4.70 x10'3/uL 09/14/2024 5:59 AM CDT [facility] 09/14/2024 5:15 AM CDT us Fabi Little MD LABORATORY Final Result [facility] [address] [place] [address], [place] [phone] * (ABNORMAL) LACTIC ACID W REFLEX (SEPSIS) (09/13/2024 10:21 PM CDT) LACTIC ACID VENOUS 2.1(HH) 0.4 - 2.0 MMOL/L 09/13/2024 10:55 PM CDT [facility] Comment: Critical Result(s) Called at: 22:55:01 on 09/13/2024 by: MATHIEU JOHNSON to and read back by:RENETTA ROQUE IN ED 09/13/2024 10:2 1 PM CDT us Joseline Alvarado MD LABORATORY Final Resu lt Performing Organization Address [facility]/ZIP Co de Phone Number [facility] [address] [place] [address], [place] [phone] * (ABNORMAL) LACTIC ACID W REFLEX (SEPSIS) (09/13/2024 8:09 PM CDT) LACTIC ACID VENOUS 2.3(HH) 0.4 - 2.0 MMOL/L 09/13/2024 8:52 PM CDT [facility] Comment: Critical Result(s) Called at: 20:52:01 on 09/13/2024 by: MATHIEU JOHNSON to and read back by: ZEINA GORMAN RN IN ED 09/13/2024 8:09 PM CDT us Joseline Alvarado MD LABORATORY Final Resu lt [facility] [address] [place] [address], [place] [phone] * Central Line (09/13/2024 6:00 PM CDT) Narrative Joseline Alvarado MD - 09/13/2024 6:00 PM CDT Joseline Alvarado MD 09/13/2024 7:24 PM Central Line Date/Time: 09/13/2024 6:00 PM Performed by: Joseline Alvarado MD Authorized by: Joseline Alvarado MD Consent: Consent obtained: Written Consent given by: Patient Risks discussed: Arterial puncture, incorrect placement, pneumothorax and infection Alternatives discussed: Delayed treatment Elmo protocol: Patient identity confirmed: Verbally with patient [...] - 2.0 MMOL/L 09/13/2024 4:51 PM CDT [facility] Comment: Critical Result(s) Called at: 16:49:58 on 09/13/2024 by: VALORIE POP to and read back by:CALLY IN ER 09/13/2024 4:14 PM CDT Joseline Alvarado MD LABORATORY Final Resu lt [facility] [address] [place] [address], [place] [phone] * (ABNORMAL) COMPREHENSIVE METABOLIC PANEL (09/13/2024 4:14 PM CDT) GLUCOSE 113(H) 70 - 99 MG/DL 09/13/2024 4:37 PM T [facility] BUN 16 7 - 18 MG/DL 09/13/2024 4:37 PM T [facility] CREATININE S/P/B 1.47(H) 0.7 - 1.3 MG/DL 09/13/2024 4:37 PM T [facility] SODIUM S/P/B 132(L) 136 - 145 MMOL/L 09/13/2024 4:37 PM T [facility] POTASSIUM S/P/B 4.4 3.5 - 5.1 MMOL/L 09/13/2024 4:37 PM T [facility] CHLORIDE S/P/B 97(L) 100 - 108 MMOL/L 09/13/2024 4:37 PM T [facility] CO2 20.2(L) 21 - 32 MMOL/L 09/13/2024 4:37 PM T [facility] CALCIUM S/P/B 9.1 8.5 - 10.1 MG/DL 09/13/2024 4:37 PM T [facility] BILIRUBIN TOTAL S/P/B 0.6 0.2 - 1.2 MG/DL 09/13/2024 4:37 PM T [facility] TOTAL PROTEIN S/P/B 7.6 6.4 - 8.2 G/DL 09/13/2024 4:37 PM T [facility] ALBUMIN S/P/B 3.1(L) 3.4 - 5.0 G/DL 09/13/2024 4:37 PM T [facility] AST 28 15 - 37 U/L 09/13/2024 4:37 PM T [facility] ALT 28 16 - 60 U/L 09/13/2024 4:37 PM CDT [facility] ALKALINE PHOSPHATASE S/P/B 92 50 - 136 U/L 09/13/2024 4:37 PM CDT [facility] ANION GAP 14.8 5 - 15 MMOL/L 09/13/2024 4:37 PM CDT [facility] BUN CREATININE RATIO 10.9 6 - 26 09/13/2024 4:37 PM CDT [facility] A/G RATIO 0.7(L) 1.0 - 2.0 RATIO 09/13/2024 4:37 PM CDT [facility] GFR ESTIMATE 53(L) >90 ML/MIN/1.7 3 M2 09/13/2024 4:37 PM CDT [facility] Comment: NOTE: eGFR is not calculated for patients <18 years of age. This is an estimated GFR calculation using the new CKD EPI creatinine equation without race and so does not require a correction factor for race. This estimated GFR should not be used for calculating drug doses. 09/13/2024 4:14 PM CDT us Joseline Alvarado MD LABORATORY Final Resu lt [facility] [address] [place] [address], [place] [phone] * (ABNORMAL) CBC W/DIFF AUTOMATED (09/13/2024 4:14 PM CDT) WBC 21.49(H) 4.4 - 11.0 x10'3/uL 09/13/2024 4:25 PM CDT [facility] RBC 4.78 4.50 - 5.90 x10'6/uL 09/13/2024 4:25 PM CDT [facility] HGB 14.0 14.0 - 17.5 G/DL 09/13/2024 4:25 PM CDT [facility] HCT 42.3 41.5 - 50.4 % 09/13/2024 4:25 PM CDT [facility] MCV 88.5 80.0 - 96.0 FL 09/13/2024 4:25 PM CDT [facility] MCH 29.3 26.5 - 31.4 PG 09/13/2024 4:25 PM CDT [facility] MCHC 33.1 31.9 - 34.8 G/DL 09/13/2024 4:25 PM CDT [facility] RDW 15.0(H) 12.3 - 14.3 % 09/13/2024 4:25 PM T [facility] PLT 258 151 - 353 x10'3/uL 09/13/2024 4:25 PM T [facility] MPV 9.4(L) 9.7 - 11.9 FL 09/13/2024 4:25 PM CDT [facility] RBC MORPHOLOGY NORMAL 09/13/2024 4:25 PM T [facility] PLT MORPH. NORMAL 09/13/2024 4:25 PM T [facility] WBC MORPHOLOGY NORMAL 09/13/2024 4:25 PM T [facility] LYMPHOCYTES % 1.3(L) 15.8 - 45.0 % 09/13/2024 4:25 PM CDT [facility] NEUTROPHILS % 94.6(H) 42.1 - 71.9 % 09/13/2024 4:25 PM CDT [facility] MONOCYTES % 2.8(L) 5.7 - 12.5 % 09/13/2024 4:25 PM CDT [facility] EOSINOPHILS 0.2 0.0 - 5.6 % 09/13/2024 4:25 PM CDT [facility] BASOPHILS 0.2 0.0 - 1.3 % 09/13/2024 4:25 PM CDT [facility] ABS. NEUTROPHILS 20.31(H) 1.40 - 6.00 x10'3/uL 09/13/2024 4:25 PM CDT [facility] IMMATURE GRANS % 0.9(H) 0.0 - 0.5 % 09/13/2024 4:25 PM CDT [facility] ABS. LYMPHOCYTES 0.29(L) 0.80 - 4.70 x10'3/uL 09/13/2024 4:25 PM CDT [facility] 09/13/2024 4:14 PM CDT Joseline Alvarado MD LABORATORY Final Resu lt [facility] [address] [place] [address], * (ABNORMAL) CULTURE URINE (09/13/2024 1:45 PM CDT) SPEC DESCRIPTION URINE STRAIGHT CATH 09/13/2024 2:18 PM CDT [facility] SPECIAL REQUESTS NO SPECIAL REQUEST 09/13/2024 2:18 PM CDT [facility] CULTURE RESULT 50,000-100,0 00 COL/ML ESCHERICHIA COLI (A) 09/16/2024 7:12 AM CDT [facility] URINE SPECIMEN OBTAINED BY SINGLE [...] MICROBIOLOGY - GENERAL ORD ERABLES Final Result [facility] [address] [place] [address], [place] [phone] [facility] [address] [place] [address], [place] [phone] * (ABNORMAL) URINALYSIS, AUTO, COMPLETE (09/13/2024 1:45 PM CDT) COLOR (U) DARK YELLOW 09/13/2024 2:09 PM CDT [facility] TRANSPARENCY TURBID 09/13/2024 2:09 PM CDT [facility] SPECIFIC GRAVITY (U) 1.020 1.000 - 1.030 09/13/2024 2:09 PM CDT [facility] U PH 8.0 5.0 - 9.0 09/13/2024 2:09 PM CDT [facility] LEUKOCYTES (U) 3+(A) NEGATIVE 09/13/2024 2:09 PM CDT [facility] NITRITES NEGATIVE NEGATIVE 09/13/2024 2:09 PM CDT [facility] PROTEIN RANDOM (U) 1+(A) NEGATIVE 09/13/2024 2:09 PM CDT [facility] GLUCOSE (U) NEGATIVE NEGATIVE 09/13/2024 2:09 PM CDT [facility] KETONES MG/DL (U) NEGATIVE NEGATIVE 09/13/2024 2:09 PM CDT [facility] BILIRUBIN (U) NEGATIVE NEGATIVE 09/13/2024 2:09 PM CDT [facility] BLOOD (U) 3+(A) NEGATIVE 09/13/2024 2:09 PM CDT [facility] WBC/HPF 50-100 0 - 5 /HPF 09/13/2024 2:09 PM CDT [facility] RBC/HPF 50-100 0 - 5 /HPF 09/13/2024 2:09 PM CDT [facility] EPI/HPF FEW /HPF 09/13/2024 2:09 PM CDT [facility] CRYSTALS (U) FEW /HPF 09/13/2024 2:09 PM CDT [facility] Comment:TRIPLE PHOSPHATE BACTERIA (U) MANY /HPF 09/13/2024 2:09 PM CDT [facility] URINE, STRAIGHT CATH 09/13/2024 1:45 PM CDT us Joseline Alvarado MD URINE ORDERABLES Final Res ult [facility] [address] [place] [address], [place] [phone] * Critical Care (09/13/2024 1:02 PM CDT) [...] Urinary tract infection, site not specified Sepsis ([facility]) UTI (urinary tract infection) Urinary tract infection, [...] volume of 2604 mL (30 ml/kg in [place] Body Weight) including prior to arrival and [...] Valorie Billings RN) 827 (Given - Provider: Valorie Billings RN) baclofen (LIORESAL) tablet 10 mg [...] Barrera RN)1620 (Given - Provider: Sonia Barrera RN)4414 (Given - Provider: Cici Alatorre RN) Linked [...] wall. documented in this encounter Care Teams Morgue Librarian Relationship Specialty Start Date End Date Non-Staff, Provider PCP - General UNKNOWN PHYSICIAN SPECIALTY 09/13/24 documented as of this encounter
--- NOTE | 2024-09-16 22:17 | ED_ITS ---
HPI - Male Genitourinary General Chief complaint: Urogenital-Male Stated complaint: cant get cath in Time Seen by Provider: 09/16/24 21:54 Source: patient Mode of arrival: wheelchair Limitations: no limitations History of Present Illness HPI Narrative: This is a 64 year old male that presents to the ER for urinary retention. Reports he straight caths due to paraplegia. Reports he was just in [facility] septic with a UTI. He was receiving Rocephin in the hospital. Is to start oral antibiotics tomorrow. His Gregory catheter was taken out and he was discharged today. Reports he has not able to straight cath himself since discharge Related Data Home Medications ?Medication ?Instructions ?Recorded ?Confirmed ?Last Taken ?Type sulfamethoxazole 800 1 tablet PO Q12H 04/24/24 05/19/24 Unknown History mg-trimethoprim 160 mg tablet (Bactrim DS) Allergies Allergy/AdvReac Type Severity Reaction Status Date / Time vancomycin Allergy Severe ANAPHYLACTIC Verified 09/16/24 22:20 SHOCK bacitracin Allergy Unknown Other Verified 09/16/24 22:20 gramicidin D Allergy Unknown Other Verified 09/16/24 22:20 polymyxin B Allergy Unknown Other Verified 09/16/24 22:20 BACITRACIN ZINC Allergy Unknown Other Uncoded 09/16/24 22:20 NEOMYCIN SULFATE Allergy Unknown Other Uncoded 09/16/24 22:20 POLYMYXIN B SULFATE Allergy Unknown Other Uncoded 09/16/24 22:20 Review of Systems 2 Review of Systems: CONSTITUTIONAL: Denies fever GASTROINTESTINAL: Denies abdominal pain, nausea, vomiting GENITOURINARY: Reports hematuria All systems reviewed & are unremarkable except as noted in HPI and below PMFSH Past Medical History Medical History Hyperlipidemia Hypothyroidism Paraplegia, complete Pressure ulcer of ischium, stage 2 Sleep apnea in adult Surgical History Surgical History Hx of colostomy Family History Family History Father Family history of elevated blood lipids Gout Mother Family history of elevated blood lipids Family history of malignant neoplasm of breast in first degree relative Breast cancer Heart disease Alzheimers disease Grandparent Family history of malignant neoplasm of breast Sibling Patient's sister is in good health Social History Social History Smoking status: Never smoker Second hand tobacco smoke exposure: No Alcohol intake: current Substance use: never Substance use type: does not use Do You Feel Safe in your Home?: Yes Lack of Transportation: No Lack of Food: Never True Current Housing: I Have Housing Concerned About Future Housing: No Difficulty Paying Gas/Electric Bills: No Difficulty Paying for Meds: No Currently Unemployed: No Education: High School Diploma/GED Difficulty w/ Childcare or Family Care: No Living arrangements: with family Occupation/Education: other Gender identity (if verbalized by the patient): Male Exam 2 Narrative: GENERAL: Well-appearing, well-nourished, and in no acute distress. HEAD: Normocephalic, atraumatic. EYES: EOMI. CHEST: Clear to auscultation. No respiratory distress. No wheezes rales or rhonchi HEART: Regular rate and rhythm. No murmur heard. Normal peripheral pulses. ABDOMEN: Soft, nontender, nondistended, normal active bowel sounds. EXTREMITIES: Normal range of motion. No edema. SKIN: Warm, dry, no rash. NEURO: No focal deficits. Alert and oriented x3. PSYCH: Normal mood and affect Course Course Emergency Course: patient and family updated on workup and agree with plan of care Vital Signs Vital signs: Vital Signs Temperature 99.0 F 09/16/24 21:45 Pulse Rate 79 09/16/24 21:45 Respiratory Rate 17 09/16/24 21:45 Blood Pressure 153/88 H 09/16/24 21:45 Pulse Oximetry 97 09/16/24 21:45 Temperature 99 F 09/16/24 22:20 Pulse Rate 76 09/16/24 22:20 Respiratory Rate 20 09/16/24 22:20 Blood Pressure 160/87 H 09/16/24 22:20 Pulse Oximetry 100 09/16/24 22:20 MDM - Male Genitourinary MDM Narrative Medical decision making narrative: Patient presents to the emergency department with difficulty with straight catheterization. Patient is paraplegic. Chronically straight caths. He was recently admitted to another facility for a UTI. They discharged him today and removed his Gregory. He has not been able to straight cath himself since discharge. Gregory catheter placed in the ER. He is afebrile and nontoxic appearing. CBC with mild leukocytosis to 11.2. Kidney function is normal. Urine with 1+ leuk esterase, 11-20 white blood cells, trace bacteria. Patient received a dose of Rocephin in the ER at outside facility today. Has oral antibiotics he will be starting tomorrow. Instructed to have follow-up with his urologist. He was given warnings to return to the ER Differential Diagnosis Differential diagnosis: Likely urinary tract infection and acute retention of urine Lab Data Attestation: I reviewed the patient's lab results. 09/16/24 23:03 09/16/24 23:03 Labs: Lab Results 09/16/24 Range/Units 23:03 WBC 11.2 H (4.5-10.0) K/mm3 RBC 4.27 L (4.6-6.20) M/mm3 Hgb 12.3 L (14.0-18.0) g/dL Hct 37.9 L (42.0-52.0) % MCV 88.8 (80-100) fl MCH 28.8 (26-34) pg MCHC 32.5 (32-36) g/dl RDW 15.0 H (11.5-14.5) % Plt Count 244 (150-375) k/mm3 MPV 9.7 (7.4-10.4) fl Immature Gran % (Auto) 0.4 (0-0.5) % Neut % (Auto) 69.5 (45.5-73.1) % Lymph % (Auto) 18.8 (18.3-44.2) % Baker % (Auto) 7.3 (2.6-8.5) % Eos % (Auto) 2.9 (0-4.4) % Baso % (Auto) 1.1 (0.2-1.2) % Lymph # (Auto) 2.10 (0.9-3.2) K/mm3 Baker # (Auto) 0.8 H (0.1-0.6) K/mm3 Eos # (Auto) 0.3 (0-0.3) K/mm3 Baso # (Auto) 0.1 (0.0-0.1) K/mm3 Abs Immat Gran (auto) 0.05 H (0.00-0.031) K/mm3 Absolute Neuts (auto) 7.8 H (1.3-6.7) K/mm3 Absolute Nucleated RBC 0.000 (0.0-0.012) K/mm3 Nucleated RBC % 0.0 (0.0-0.2) % Sodium 136 L (137-145) mmol/L Potassium 4.0 (3.4-5.0) mmol/L Chloride 103 (98-107) mmol/L Carbon Dioxide 24 (22-30) mmol/L Anion Gap 9 (4-12) mmol/L BUN 12 (9-20) mg/dL Creatinine 0.94 (0.7-1.3) mg/dL Estim Creat Clear Calc 104 ml/min Estimated GFR > 60 (59 - ) Glucose 112 H (65-110) mg/dL Calcium 9.0 (8.4-10.2) mg/dL Total Bilirubin 0.2 (0.2-1.3) mg/dL AST 25 (17-59) U/L ALT 21 (6-50) U/L Alkaline Phosphatase 67 (38-126) U/L Total Protein 7.0 (6.3-8.2) g/dL Albumin 3.6 (3.5-5.1) g/dL Urine Color Yellow (Yellow) Urine Appearance Clear (Clear) Urine pH 5.5 (5.0-9.0) Ur Specific [place] 1.017 (1.001-1.035) Urine Protein Trace (Negative) mg/dL Urine Glucose (UA) Negative (Negative) mg/dL Urine Ketones Negative (Negative) mg/dL Ur Blood (Man) 2+ H (Negative) Urine Nitrate Negative (Negative) Urine Bilirubin Negative (Negative) Urine Urobilinogen 0.2 (<2.0) mg/dL Leukocyte Esterase Rfl 1+ H (Negative) LUZ/UL Urine RBC 6-10 H (0-2) /hpf Urine WBC 11-20 H (0-3) /hpf Ur Squamous Epith Cells None seen (Few) /hpf Urine Bacteria Trace /hpf Urine Casts 0-2 Critical Care Time Critical Care Time Critical Care Time: No Discharge Plan Discharge Clinical Impression: Acute on chronic urinary retention, Acute UTI Patient Disposition: Home, Self-Care Condition: Improved Instructions: Antibiotic Form, Urinary Tract Infection in Men (ED), Gregory Catheter Placement and Care (ED) Additional Instructions: Return to the ER if you experience fever, abdominal pain with nausea and vomiting, you are unable to keep down liquids or solids, blood in the urine or any other symptoms that are concerning to you Remain well hydrated. Take oral antibiotics as prescribed Follow up with your urologist Patient Language: Tamazight Prescriptions: No Action sulfamethoxazole-trimethoprim [Bactrim DS] 800-160 mg tablet 1 tablet PO Q12H hydrocodone-acetaminophen 5-325 mg tablet 1 tablet PO BID PRN (Reason: pain) Qty: 60 0RF Rx Instructions: must last 30 days levothyroxine [Synthroid] 50 mcg tablet 50 mcg PO DAILY Qty: 90 2RF baclofen 10 mg tablet 20 mg PO BID Qty: 360 1RF simvastatin 20 mg tablet 20 mg PO DAILY Qty: 90 3RF Follow-up/Referrals: Shin Haas MD [Physician] - Simeon Hilton DO [Primary Care Provider] -
[2024-09-16 22:20] VITALS: BP 160/87; PULSE 76; RESP 20; TEMP 37.2; O2SAT 100
[2024-09-16 23:12] LABS: Basophils Absolute Auto 0.1 K/mm3 (0.0-0.1); Basophils Percent Auto 1.1 % (0.2-1.2); Eosinophils Absolute Auto 0.3 K/mm3 (0-0.3); Eosinophils Percent Auto 2.9 % (0-4.4); Hematocrit 37.9 % (42.0-52.0); Hemoglobin 12.3 g/dL (14.0-18.0); Immature Granulocyte Absolute 0.05 K/mm3 (0.00-0.031); Immature Granulocyte Percent A 0.4 % (0-0.5); Lymphocytes Percent Auto 18.8 % (18.3-44.2); Mean Corpuscular HGB Conc 32.5 g/dl (32-36); Mean Corpuscular Hemoglobin 28.8 pg (26-34); Mean Corpuscular Volume 88.8 fl (80-100); Mean Platelet Volume 9.7 fl (7.4-10.4); Monocytes Absolute Auto 0.8 K/mm3 (0.1-0.6); Monocytes Percent Auto 7.3 % (2.6-8.5); Neutrophils Absolute Auto 7.8 K/mm3 (1.3-6.7); Neutrophils Percent Auto 69.5 % (45.5-73.1); Platelet Count Result 244 k/mm3 (150-375); Red Blood Count 4.27 M/mm3 (4.6-6.20); White Blood Count 11.2 K/mm3 (4.5-10.0)
[2024-09-16 23:17] LABS: Add Urine Microscopic? YES; Appearance Urine Clear (Clear); Bilirubin Urine Negative (Negative); Blood Urine 2+ (Negative); Color Urine Yellow (Yellow); Glucose Urine UA Negative (Negative); Ketones Urine Negative (Negative); Leukocyte Esterase Ur 1+ LEU/UL (Negative); Nitrate Urine Negative (Negative); Non Pathogenic Casts 0-2; Protein Urine Trace mg/dL (Negative); Specific Grav Ur 1.017 (1.001-1.035); Squamous Epithelial Cell Urine None Seen /hpf (Few); Urobilinogen Urine 0.2 mg/dL (<2.0); pH Urine 5.5 (5.0-9.0)
[2024-09-16 23:22] LABS: Alanine Aminotransferase 21 U/L (6-50); Albumin Level 3.6 g/dL (3.5-5.1); Alkaline Phosphatase 67 U/L (38-126); Anion Gap 9 mmol/L (4-12); Aspartate Amino Transferase 25 U/L (17-59); Bilirubin,Total 0.2 mg/dL (0.2-1.3); Blood Urea Nitrogen 12 mg/dL (9-20); Carbon Dioxide 24 mmol/L (22-30); Chloride 103 mmol/L (98-107); Estimated CRCL calculation 104 ml/min; Estimated Glomerular Filt Rate > 60; Glucose 112 mg/dL (65-110); Sodium 136 mmol/L (137-145)
[2024-09-16 23:26] LABS: Bacteria Urine Trace /hpf
[2024-09-17 00:22] VITALS: BP 166/84; PULSE 74; RESP 15; O2SAT 97
== END 2024-09-17 00:23 | disposition home or self-care (01) ==
PROVIDERS: Emergency Provider Physician Assistant; PCP Internal Medicine
DX: N39.0 Urinary tract infection, site not specified (principal); R33.9 Retention of urine, unspecified; E78.5 Hyperlipidemia, unspecified; E03.9 Hypothyroidism, unspecified; G82.21 Paraplegia, complete; G47.30 Sleep apnea, unspecified
CPT/HCPCS: 36415; 51702; 80053; 81001; 85025; 87086; 99283

== ENCOUNTER 2024-09-26 16:09 | Outpatient (CLI) | payer MEDICARE, SELFPAY ==
--- NOTE | ~2024-09-26 | CT_ITS ---
Non-contrast CT scan of the Abdomen and Pelvis Clinical indication: Bladder stone Technique: 2.5 mm axial scans were obtained through the abdomen and pelvis without intravenous or or al contrast. Dose reduction technique was used on this scan by utilizing automated exposure control a nd iterative reconstruction technique. The dose-length product (DLP) was 1686.75 mGy-cm. Findings: Images through the lung bases reveal no abnormalities. Probable 3 mm nonobstructing left renal stone and 2 mm nonobstructing right renal stone. No ureteral stone or hydronephrosis on either side. The liver, spleen, pancreas, gallbladder, and adrenals appear normal. There are atherosclerotic calci fications of the aorta. . There is no evidence of bowel obstruction. Left lower quadrant ostomy present. Images through the pelvis were performed. There is no evidence of ascites or lymphadenopathy. 11 mm u rinary bladder stone present. Urinary bladder collapsed around a Gregory catheter. No pelvic mass evide nt. There are spinal fixation hardware posteriorly of the visualized distal thoracic spine. Probable mild chronic compression deformity of L2. There is amorphous sclerotic change within the sacrum, nonspeci fic. Impression: 11 mm urinary bladder stone. Probable small nonobstructing bilateral renal stones. Sclerotic change in the central sacrum from S1 through S3, nonspecific. Chronic osteomyelitis is a co nsideration. Reviewed, dictated and finalized at [facility]. Impression: 11 mm urinary bladder stone. Probable small nonobstructing bilateral renal ston es. Sclerotic change in the central sacrum from S1 through S3, nonspecific. Chronic osteomyelitis is a consideration.
--- OUTSIDE RECORDS SUMMARY | 2024-09-26 16:15 | XMS_ITS | Encounter Summary ---
Author Organization [facility] Address [address] [place] [address] Care Team Providers Care Shift Mechanic Name Role Phone Non-Staff, Provider Primary Care [...] he would like to be seen at [facility]. Encounter Details Date Type Department Care Team (Late st Contact Info) Description 09/16/2024 Telephone [facility] [address] [place] [address] Remedios Fuller, RN Follow Up Call (Wound care referral from IP stay. Patient already discharged. Called patient to see if would like to be seen at the wound care clinic for wound on his bottom. stated she would talk to and call back tomorrow and let us know if he would like to be seen at [facility].) Social History Tobacco Use Types [...] from your doctor or pharmacy? Rarely 09/13/2024 [facility] Utilities Answer Date Recorded In the past 12 months has th e electric, gas, oil, or water [employer] threatened to shut off services in your [...] Never 09/13/2024 How often do you attend lutheran or hinduism serv ices? Never 09/13/2024 Do you belong to any clubs o r organizations such as lutheran groups, unions, fraternal or athletic groups, or [...] any time in the past 12 m [facility], were you homeless or living in a fpc (including now)? No 09/13/2024 Sex and Gender [...] on filedocumented in this encounter Care Teams Shift Mechanic Relationship Specialty Start Date End Date Non-Staff, Provider PCP - General UNKNOWN PHYSICIAN SPECIALTY 09/13/24 documented as of this encounter
--- OUTSIDE RECORDS SUMMARY | 2024-09-26 16:15 | XMS_ITS | Clinical Summary ---
Author Organization [facility] Address [address] [place] [address] Care Team Providers [employer] Name Role Phone Non-Staff, Provider Primary Care Provider Carlos lable Allergies Active Allergy Reactions Criticality Noted Date Comments Bacitracin-Polymyxin B Other (see comment) 08/17 Laura Vancomycin Redness 09/13/2024 Red man syndrome Medications [...] (100 Units total) by mouth daily. Active amLODIPine (NORVASC) 5 MG tablet Take 1 tablet (5 mg total) by mouth daily. 30 tablet 5 Active sulfamethoxazol e-trimethoprim (BACTRIM DS) 800-160 MG tablet Take 1 tablet by mouth nightly at bedtime. 09/17/19 Discontinue d(Stop Taking at Discharge) cefdinir (OMNICEF) 300 MG Cap capsule Take 1 capsule (300 mg total) by mouth 2 (two) times daily for 3 days. 6 capsule 5 09/21/19 Active Problems Problem Noted Date Diagnosed Date Complicated UTI (urinary tract infection) 2024 Encounters Date Type Department Care Team Description 09/24/2024 1:12 PM CDT - 09/24/2024 11:59 PM CDT Hospital Encounter [facility] [address] [place] [address] Chris Fuller MD Arrived Discharge Disposition: Home or Self Care (Routine Discharge) 09/24/2024 Travel 09/18/2024 Hospital Follow-up Call [facility] Care Management [address] [place] [address] Nelsy Rees LPN Follow Up Call ([facility] 09/13-09/16/24) 09/16/2024 Telephone [facility] [address] [place], [place] [id number] Remedios Fuller RN Follow Up Call (Wound care referral from stay. Patient already discharged. Called patient to see if would like to be seen at the wound care clinic for wound on his bottom. stated she would talk to and call back tomorrow and let us know if he would like to be seen at [facility].) 09/13/2024 12:42 PM CDT - 09/16/2024 1:12 PM CDT Hospital Encounter [facility] Med/Surg [address] [place], [place] [id number] Joseline Alvarado MD Mahtani, Andrew, MD Dodt, [...] from your doctor or pharmacy? Rarely 09/13/2024 [facility] Utilities Answer Date Recorded In the past 12 months has e electric, gas, oil, or water company threatened to shut off services in your [...] Never 09/13/2024 How often do you attend pentecostalism or mandaeism serv ices? Never 09/13/2024 Do you belong to any clubs o r organizations such as pentecostalism groups, unions, fraternal or athletic groups, or [...] any time in the past 12 m [facility], were you homeless or living in a [place] facility (including now)? No 09/13/2024 Sex and Gender [...] 60-74 years 1-dose series) 2019 COVID-19 Vaccine (2023-2 5 season) 2024 05/19/2021, 09/14/2020, 08/24/2020 AAA [...] of3 resultswithin the time period is included. Pathologist [facility] GLUCOSE 105(H) 70 - 99 MG/DL 09/16/2024 5:59 AM CDT [facility] BUN 10 7 - 18 MG/DL 09/16/2024 5:59 AM CDT [facility] CREATININE S/P/B 0.85 0.7 - 1.3 MG/DL 09/16/2024 5:59 AM CDT [facility] SODIUM S/P/B 138 136 - 145 MMOL/L 09/16/2024 5:59 AM CDT [facility] POTASSIUM S/P/B 4.0 3.5 - 5.1 MMOL/L 09/16/2024 5:59 AM CDT [facility] CHLORIDE S/P/B 104 100 - 108 MMOL/L 09/16/2024 5:59 AM CDT [facility] CO2 25.2 21 - 32 MMOL/L 09/16/2024 5:59 AM CDT [facility] CALCIUM S/P/B 9.2 8.5 - 10.1 MG/DL 09/16/2024 5:59 AM CDT [facility] ANION GAP 8.8 5 - 15 MMOL/L 09/16/2024 5:59 AM CDT [facility] BUN CREATININE RATIO 11.8 6 - 26 09/16/2024 5:59 AM CDT [facility] GFR ESTIMATE >90 >90 ML/MIN/1.7 3 M2 09/16/2024 5:59 AM CDT [facility] Comment: NOTE: eGFR is not calculated for patients <18 years of age. This is an estimated GFR calculation using the new CKD EPI creatinine equation without race and so does not require a correction factor for race. This estimated GFR should not be used for calculating drug doses. 09/16/2024 5:15 AM CDT us Glenys Santana APRN LABORATORY Final Result [facility] [address] [place] [address], [place] [phone] * (ABNORMAL) CBC W/DIFF AUTOMATED (09/16/2024 5:15 AM CDT) Only the most recent of4 resultswithin the time period is included. WBC 7.96 4.4 - 11.0 x10'3/uL 09/16/2024 5:43 AM CDT [facility] RBC 4.25(L) 4.50 - 5.90 x10'6/uL 09/16/2024 5:43 AM CDT [facility] HGB 12.2(L) 14.0 - 17.5 G/DL 09/16/2024 5:43 AM CDT [facility] HCT 38.0(L) 41.5 - 50.4 % 09/16/2024 5:43 AM CDT [facility] MCV 89.4 80.0 - 96.0 FL 09/16/2024 5:43 AM CDT [facility] MCH 28.7 26.5 - 31.4 PG 09/16/2024 5:43 AM CDT [facility] MCHC 32.1 31.9 - 34.8 G/DL 09/16/2024 5:43 AM CDT [facility] RDW 15.3(H) 12.3 - 14.3 % 09/16/2024 5:43 AM CDT [facility] PLT 196 151 - 353 x10'3/uL 09/16/2024 5:43 AM CDT [facility] MPV 9.7 9.7 - 11.9 FL 09/16/2024 5:43 AM CDT [facility] RBC MORPHOLOGY NORMAL 09/16/2024 5:43 AM T [facility] PLT MORPH. NORMAL 09/16/2024 5:43 AM CDT [facility] WBC MORPHOLOGY NORMAL 09/16/2024 5:43 AM CDT [facility] LYMPHOCYTES % 21.9 15.8 - 45.0 % 09/16/2024 5:43 AM CDT [facility] NEUTROPHILS % 63.8 42.1 - 71.9 % 09/16/2024 5:43 AM CDT [facility] MONOCYTES % 9.0 5.7 - 12.5 % 09/16/2024 5:43 AM CDT [facility] EOSINOPHILS 3.5 0.0 - 5.6 % 09/16/2024 5:43 AM CDT [facility] BASOPHILS 1.4(H) 0.0 - 1.3 % 09/16/2024 5:43 AM CDT [facility] ABS. NEUTROPHILS 5.08 1.40 - 6.00 x10'3/uL 09/16/2024 5:43 AM CDT [facility] IMMATURE GRANS % 0.4 0.0 - 0.5 % 09/16/2024 5:43 AM CDT [facility] ABS. LYMPHOCYTES 1.74 0.80 - 4.70 x10'3/uL 09/16/2024 5:43 AM CDT [facility] 09/16/2024 5:15 AM CDT Basil Bart Santana MAIL DELIVERER LABORATORY Final Result Performing Organization Address City/State/[facility] Co de Phone Number [facility] [address] [place] [address], * XR HEEL LT MIN 2V (09/14/2024 [...] 12:45 PM Narrative 09/14/2024 12:54 PM CDT [address] [place] [address] Examination: Left calcaneus. Exam time: 1230 hours. [...] Procedure Note Alex Araiza MD - 09/14/[address] [place] [address] Examination: Left calcaneus. Exam time: 1230 hours. [...] By: Alex Araiza MD, 09/14/2024 12:45 PM us Glenys Bart Sanchezt MAIL DELIVERER GENERAL IMAGING Final Result * (ABNORMAL) LACTIC ACID W REFLEX (SEPSIS) (09/13/2024 10:21 PM CDT) Only the most recent of3 resultswithin the time period is included. LACTIC ACID VENOUS 2.1(HH) 0.4 - 2.0 MMOL/L 09/13/2024 10:55 PM CDT [facility] Comment: Critical Result(s) Called at: 22:55:01 on 09/13/2024 by: MATHIEU JOHNSON to and read back by:RENETTA ROQUE IN ED 09/13/2024 10:2 1 PM CDT us Joseline Alvarado MD LABORATORY Final Resu lt [facility] [address] [place] [address], [place] [phone] * CULTURE, BACTERIA, BLOOD (09/13/2024 8:09 PM CDT) Only the most recent of2 resultswithin the time period is included. Pathologist [facility] SPEC DESCRIPTION BLOOD-PEDIA TRIC VOLUME 09/13/2024 2:26 PM CDT [facility] SPECIAL REQUESTS NO SPECIAL REQUEST 09/13/2024 2:26 PM CDT [facility] CULTURE RESULT NO GROWTH 5 DAYS 09/20/2024 10:26 AM CDT [facility] BLOOD SPECIMEN OBTAINED FOR BLOOD CULTURE / Unknown 09/13/2024 8:09 PM CDT 09/14/2024 6:33 PM CDT Joseline Alvarado MD MICROBIOLOGY - GENERAL ORD ERABLES Final Result [facility] [address] [place] [address], [place] [phone] [facility] [address] [place] [address], [place] [phone] * Central Line (09/13/2024 6:00 PM CDT) Joseline Sandoval MD - 09/13/2024 6:00 PM CDT Joseline Alvarado MD 09/13/2024 7:24 PM Central Line Date/Time: 09/13/2024 6:00 PM Performed by: Joseline Alvarado MD Authorized by: Joseline Alvarado MD Consent: Consent obtained: Written Consent given by: Patient Risks discussed: Arterial puncture, incorrect placement, pneumothorax and infection Alternatives discussed: Delayed treatment Farrell protocol: Patient identity confirmed: Verbally with patient [...] - 99 MG/DL 09/13/2024 4:37 PM CDT [facility] BUN 16 7 - 18 MG/DL 09/13/2024 4:37 PM CDT [facility] CREATININE S/P/B 1.47(H) 0.7 - 1.3 MG/DL 09/13/2024 4:37 PM [facility] SODIUM S/P/B 132(L) 136 - 145 MMOL/L 09/13/2024 4:37 PM [facility] POTASSIUM S/P/B 4.4 3.5 - 5.1 MMOL/L 09/13/2024 4:37 PM [facility] CHLORIDE S/P/B 97(L) 100 - 108 MMOL/L 09/13/2024 4:37 PM [facility] CO2 20.2(L) 21 - 32 MMOL/L 09/13/2024 4:37 PM [facility] CALCIUM S/P/B 9.1 8.5 - 10.1 MG/DL 09/13/2024 4:37 PM [facility] BILIRUBIN TOTAL S/P/B 0.6 0.2 - 1.2 MG/DL 09/13/2024 4:37 PM [facility] TOTAL PROTEIN S/P/B 7.6 6.4 - 8.2 G/DL 09/13/2024 4:37 PM [facility] ALBUMIN S/P/B 3.1(L) 3.4 - 5.0 G/DL 09/13/2024 4:37 PM [facility] AST 28 15 - 37 U/L 09/13/2024 4:37 PM [facility] ALT 28 16 - 60 U/L 09/13/2024 4:37 PM [facility] ALKALINE PHOSPHATASE S/P/B 92 50 - 136 U/L 09/13/2024 4:37 PM [facility] ANION GAP 14.8 5 - 15 MMOL/L 09/13/2024 4:37 PM [facility] BUN CREATININE RATIO 10.9 6 - 26 09/13/2024 4:37 PM CDT [facility] A/G RATIO 0.7(L) 1.0 - 2.0 RATIO 09/13/2024 4:37 PM CDT [facility] GFR ESTIMATE 53(L) >90 ML/MIN/1.7 3 M2 09/13/2024 4:37 PM CDT [facility] Comment: NOTE: eGFR is not calculated for patients <18 years of age. This is an estimated GFR calculation using the new CKD EPI creatinine equation without race and so does not require a correction factor for race. This estimated GFR should not be used for calculating drug doses. 09/13/2024 4:14 PM CDT us Joseline Alvarado MD LABORATORY Final Resu lt [facility] [address] [place] [address], * (ABNORMAL) CULTURE URINE (09/13/2024 1:45 PM CDT) SPEC DESCRIPTION URINE STRAIGHT CATH 09/13/2024 2:18 PM CDT [facility] SPECIAL REQUESTS NO SPECIAL REQUEST 09/13/2024 2:18 PM CDT [facility] CULTURE RESULT 50,000-100,0 00 COL/ML ESCHERICHIA COLI (A) 09/16/2024 7:12 AM CDT [facility] URINE SPECIMEN OBTAINED BY SINGLE [...] MICROBIOLOGY - GENERAL ORD ERABLES Final Result [facility] [address] [place] [address], [place] [phone] [facility] [address] [place] [address], [place] [phone] * (ABNORMAL) URINALYSIS, AUTO, COMPLETE (09/13/2024 1:45 PM CDT) COLOR (U) DARK YELLOW 09/13/2024 2:09 PM CDT [facility] TRANSPARENCY TURBID 09/13/2024 2:09 PM CDT [facility] SPECIFIC GRAVITY (U) 1.020 1.000 - 1.030 09/13/2024 2:09 PM CDT [facility] U PH 8.0 5.0 - 9.0 09/13/2024 2:09 PM CDT [facility] LEUKOCYTES (U) 3+(A) NEGATIVE 09/13/2024 2:09 PM CDT [facility] NITRITES NEGATIVE NEGATIVE 09/13/2024 2:09 PM CDT [facility] PROTEIN RANDOM (U) 1+(A) NEGATIVE 09/13/2024 2:09 PM CDT [facility] GLUCOSE (U) NEGATIVE NEGATIVE 09/13/2024 2:09 PM CDT [facility] KETONES MG/DL (U) NEGATIVE NEGATIVE 09/13/2024 2:09 PM CDT [facility] BILIRUBIN (U) NEGATIVE NEGATIVE 09/13/2024 2:09 PM CDT [facility] BLOOD (U) 3+(A) NEGATIVE 09/13/2024 2:09 PM CDT [facility] WBC/HPF 50-100 0 - 5 /HPF 09/13/2024 2:09 PM CDT [facility] RBC/HPF 50-100 0 - 5 /HPF 09/13/2024 2:09 PM CDT [facility] EPI/HPF FEW /HPF 09/13/2024 2:09 PM CDT [facility] CRYSTALS (U) FEW /HPF 09/13/2024 2:09 PM CDT [facility] Comment:TRIPLE PHOSPHATE BACTERIA (U) MANY /HPF 09/13/2024 2:09 PM CDT [facility] URINE, STRAIGHT CATH 09/13/2024 1:45 PM CDT us Joseline Alvarado MD URINE ORDERABLES Final Res ult [facility] [address] [place] [address], [place] [phone] * Critical Care (09/13/2024 1:02 PM CDT) [...] 10:34 AM 09/16/2024 3:17 PM Care Teams [employer] Relationship Specialty Start Date End Date Non-Staff, Provider PCP - General UNKNOWN PHYSICIAN SPECIALTY 09/13/24
--- OUTSIDE RECORDS SUMMARY | 2024-09-26 16:15 | XMS_ITS | Encounter Summary ---
Author Organization [facility] Address [facility] [place] [address] Care Team Providers Care Service Associate Name Role Phone Non-Staff, Provider Primary Care Provider Carlos ferreira Encounter Details Date Type Department Care Team (Latest Contact Info) Description 09/24/2024 1:12 PM CDT - 09/24/2024 11:59 PM CDT Hospital Encounter [facility] [id number] [place] [address] [place] [address] [facility] [address] [place] [address] Arrived Discharge Disposition: Home or Self Care [...] from your doctor or pharmacy? Rarely 09/13/2024 [facility] Utilities Answer Date Recorded In the past 12 months has e [employer], gas, oil, or water [employer] threatened to shut off services in your [...] Never 09/13/2024 How often do you attend latter-day or muslim serv ices? Never 09/13/2024 Do you belong to any clubs o r organizations such as latter-day groups, unions, fraternal or athletic groups, or [...] any time in the past 12 m [facility], were you homeless or living in a snf (including now)? No 09/13/2024 Sex and Gender [...] Assessment Author Status Yes 09/13/2024 11:35 PM FRANCISCOT Sujata Cleaning RN Active * Do you have difficulty dressing or bathing? Answer Date of Assessment Author Status Yes 09/13/2024 11:35 PM FRANCISCOT Sujata Cleaning RN Active * Because of [...] Date Author Status No 09/13/2024 11:35 PM CDT Sujata Cleaning RN Active documented in this encounter Medications at Time of Discharge amLODIPine (NORVASC) 5 MG tablet Take 1 tablet (5 mg total) by mouth daily. 30 tablet 09/16/2024 baclofen (LIORESAL) 10 MG tablet Take 1 tablet (10 mg total) by mouth nightly at bedtime. 07/05/2024 HYDROcodone-aceta minophen (NORCO) 5-325 MG tablet Take [...] mouth daily. documented as of this encounter Plan of Treatment Not on file documented as of this encounter Visit Diagnoses Not on filedocumented in this encounter Administered Medications Inactive Administered Medications - up to 3 most recent administrations Medication Order MAR Action Action Date Dose Rate Site lidocaine 2 % URO-JET jelly Topical, As needed, Other, pre debridement, Starting on Sun09/24/24 at 1322, Until Sun09/26/24 at 0246 Given 09/24/2024 3:47 PM CDT 12 mLs documented in this encounter Care Teams Service Associate Relationship Specialty Start Date End Date Non-Staff, Provider PCP - General UNKNOWN PHYSICIAN SPECIALTY 09/13/24 documented as of this encounter
== END 2024-09-26 16:10 | disposition home or self-care (01) ==
PROVIDERS: PCP Internal Medicine; Visit Provider Nurse Practitioner Family
DX: N21.0 Calculus in bladder (principal)
CPT/HCPCS: 74176

== ENCOUNTER 2024-10-07 08:46 | Outpatient (CLI) | payer MEDICARE, SELFPAY ==
--- NOTE | 2024-10-07 09:00 | ECG_ITS ---
Test Date: 2024-10-07 09:08:23 Measurements Intervals [place] Rate: 80 P: 34 NV: 158 QRS: 257 QRSD: 96 T: 42 QT: 360 QTc: 416 Interpretive Statements SINUS RHYTHM RIGHT AXIS DEVIATION INCOMPLETE RIGHT BUNDLE BRANCH BLOCK RIGHT VENTRICULAR HYPERTROPHY CONSIDER INFERIOR INFARCT, AGE INDETERMINATE BASELINE ARTIFACT- I, II, III, AVR, AVL, AVF, V1-V6 ABNORMAL ECG No previous ECG available for comparison Electronically Signed On 10-07-2024 10:02:47 CDT by Ronan Matthew D.O.
--- OUTSIDE RECORDS SUMMARY | 2024-10-07 09:15 | XMS_ITS | Clinical Summary ---
Author Organization [facility] Address [address] [place] [address] Care Team Providers Care Continuous Process Machine Operator Name Role Phone Non-Staff, Provider Primary Care Provider Carlos lable Allergies Active Allergy Reactions Criticality Noted Date Comments Bacitracin-Polymyxin B Other (see comment) 08/17 [place] Vancomycin Redness 09/13/2024 Red man syndrome Medications [...] mouth nightly at bedtime. 5 09/17/19 25 Discontinue d(Stop Taking at Discharge) cefdinir (OMNICEF) 300 MG Cap capsule Take 1 capsule (300 mg total) by mouth 2 (two) times daily for 3 days. 6 capsule 5 09/21/19 25 Active Problems Problem Noted Date Diagnosed Date Complicated UTI (urinary tract infection) 2024 Encounters Date Type Department Care Team Description 10/01/2024 1:38 PM CDT - 10/01/2024 11:59 PM CDT Hospital Encounter [facility] Wound Care [address] [place] [address] Chris Fuller MD Discharge Disposition: Home or Self Care (Routine Discharge) 10/01/2024 Travel 09/30/2024 Telephone [facility] Med/Surg [address] [place], [place] [phone] Michelle Tran RN Follow Up Call (Spoke w/ pt's , Urology appt made and seen) 09/24/2024 1:12 PM CDT - 09/24/2024 11:59 PM CDT Hospital Encounter [facility] Wound Care [address] [place] [address] Chris Fuller MD Discharge Disposition: Home or Self Care (Routine Discharge) 09/24/2024 Travel 09/18/2024 Hospital Follow-up Call [facility] Care Management [address] [place], [place] [id number] Nelsy Rees LPN Follow Up Call ([facility] 09/13-09/16/24) 09/16/2024 Telephone [facility] Wound Care [address] [place] [address] Remedios Fuller RN Follow Up Call (Wound care referral from stay. Patient already discharged. Called patient to see if would like to be seen at the wound care clinic for wound on his bottom. stated she would talk to and call back tomorrow and let us know if he would like to be seen at [facility].) 09/13/2024 12:42 PM CDT - 09/16/2024 1:12 PM CDT Hospital Encounter [facility] Med/Surg [address] [place] [address] Joseline Alvarado MD Mahtani, Andrew, MD [place], [...] from your doctor or pharmacy? Rarely 09/13/2024 [facility] Utilities Answer Date Recorded In the past 12 months has [employer], or water [employer] threatened to shut off services in your [...] Never 09/13/2024 How often do you attend pentecostal or quaker serv ices? Never 09/13/2024 Do you belong to any clubs o r organizations such as pentecostal groups, unions, fraternal or athletic groups, or [...] any time in the past 12 m [facility], were you homeless or living in a skilled nursing (including now)? No 09/13/2024 Sex and Gender [...] 09/13/2024 11:21 PM CDT Plan of Treatment Upcoming Encounters Date Type Department Care Team (Late st Contact Info) Description 10/09/2024 10:00 AM CDT Appointment [facility] Wound Care [address] [place], [place] [phone] Mckayla Sauer, CUSTOMER CARE ASSISTANT [address] [facility] [address] [place] [address] Health Maintenance Due Date Last Done Comments Colorectal Cancer Screening Colonoscopy (10 Years) 1959 Hepatitis C 1977 DTaP, Tdap and Td Vaccines ( 1 - Tdap) 1978 Pneumococcal Vaccine: 50+ Years (1 of 2 - PCV) 1978 Zoster Vaccines (1 of 2) 2009 RSV Immunization or 60+ Years (1 - Risk 60-74 years 1-dose series) 2019 COVID-19 Vaccine ( - 2023-2 5 season) 2024 05/19/2021, 09/14/2020, [...] of3 resultswithin the time period is included. [facility] GLUCOSE 105(H) 70 - 99 MG/DL 09/16/2024 5:59 AM CDT [facility] BUN 10 7 - 18 MG/DL 09/16/2024 5:59 AM CDT [facility] CREATININE S/P/B 0.85 0.7 - 1.3 MG/DL 09/16/2024 5:59 AM CDT [facility] SODIUM S/P/B 138 136 - 145 MMOL/L 09/16/2024 5:59 AM CDT [facility] POTASSIUM S/P/B 4.0 3.5 - 5.1 MMOL/L 09/16/2024 5:59 AM CDT [facility] CHLORIDE S/P/B 104 100 - 108 MMOL/L 09/16/2024 5:59 AM CDT [facility] CO2 25.2 21 - 32 MMOL/L 09/16/2024 5:59 AM CDT [facility] CALCIUM S/P/B 9.2 8.5 - 10.1 MG/DL 09/16/2024 5:59 AM CDT [facility] ANION GAP 8.8 5 - 15 MMOL/L 09/16/2024 5:59 AM CDT [facility] BUN CREATININE RATIO 11.8 6 - 26 09/16/2024 5:59 AM CDT [facility] GFR ESTIMATE >90 >90 ML/MIN/1.7 3 M2 09/16/2024 5:59 AM CDT [facility] Comment: NOTE: eGFR is not calculated for patients <18 years of age. This is an estimated GFR calculation using the new CKD EPI creatinine equation without race and so does not require a correction factor for race. This estimated GFR should not be used for calculating drug doses. 09/16/2024 5:15 AM CDT Glenys Arriaga Esther INFORMATION SECURITY ARCHITECT LABORATORY Final Result [facility] [address] [place] [address], * (ABNORMAL) CBC W/DIFF AUTOMATED (09/16/2024 5:15 AM CDT) Only the most recent of4 resultswithin the time period is included. WBC 7.96 4.4 - 11.0 x10'3/uL 09/16/2024 5:43 AM T [facility] RBC 4.25(L) 4.50 - 5.90 x10'6/uL 09/16/2024 5:43 AM [facility] HGB 12.2(L) 14.0 - 17.5 G/DL 09/16/2024 5:43 AM T [facility] HCT 38.0(L) 41.5 - 50.4 % 09/16/2024 5:43 AM T [facility] MCV 89.4 80.0 - 96.0 FL 09/16/2024 5:43 AM T [facility] MCH 28.7 26.5 - 31.4 PG 09/16/2024 5:43 AM T [facility] MCHC 32.1 31.9 - 34.8 G/DL 09/16/2024 5:43 AM CDT [facility] RDW 15.3(H) 12.3 - 14.3 % 09/16/2024 5:43 AM CDT [facility] PLT 196 151 - 353 x10'3/uL 09/16/2024 5:43 AM T [facility] MPV 9.7 9.7 - 11.9 FL 09/16/2024 5:43 AM CDT [facility] RBC MORPHOLOGY NORMAL 09/16/2024 5:43 AM T [facility] PLT MORPH. NORMAL 09/16/2024 5:43 AM T [facility] WBC MORPHOLOGY NORMAL 09/16/2024 5:43 AM T [facility] LYMPHOCYTES % 21.9 15.8 - 45.0 % 09/16/2024 5:43 AM T [facility] NEUTROPHILS % 63.8 42.1 - 71.9 % 09/16/2024 5:43 AM CDT [facility] MONOCYTES % 9.0 5.7 - 12.5 % 09/16/2024 5:43 AM [facility] EOSINOPHILS 3.5 0.0 - 5.6 % 09/16/2024 5:43 AM CDT [facility] BASOPHILS 1.4(H) 0.0 - 1.3 % 09/16/2024 5:43 AM CDT [facility] ABS. NEUTROPHILS 5.08 1.40 - 6.00 x10'3/uL 09/16/2024 5:43 AM T [facility] IMMATURE GRANS % 0.4 0.0 - 0.5 % 09/16/2024 5:43 AM CDT [facility] ABS. LYMPHOCYTES 1.74 0.80 - 4.70 x10'3/uL 09/16/2024 5:43 AM CDT [facility] 09/16/2024 5:15 AM CDT Glenys Santana INFORMATION SECURITY ARCHITECT LABORATORY Final Result [facility] [address] [place] [address], * XR HEEL LT MIN 2V (09/14/2024 [...] 12:45 PM Narrative 09/14/2024 12:54 PM CDT [address] [place] [address] Examination: Left calcaneus. Exam time: 1230 hours. [...] Procedure Note Alex Araiza MD - 09/14/[address] [place] [address] Examination: Left calcaneus. Exam time: 1230 hours. [...] By: Alex Araiza MD, 09/14/2024 12:45 PM Glenys Santana INFORMATION SECURITY ARCHITECT GENERAL IMAGING Final Result * (ABNORMAL) LACTIC ACID W REFLEX (SEPSIS) (09/13/2024 10:21 PM CDT) Only the most recent of3 resultswithin the time period is included. LACTIC ACID VENOUS 2.1(HH) 0.4 - 2.0 MMOL/L 09/13/2024 10:55 PM CDT [facility] Comment: Critical Result(s) Called at: 22:55:01 on 09/13/2024 by: MATHIEU JOHNSON to and read back by:RENETTA ROQUE IN ED 09/13/2024 10:2 1 PM CDT Joseline Alvarado MD LABORATORY Final Resu lt [facility] [address] [place] [address], [place] [phone] * CULTURE, BACTERIA, BLOOD (09/13/2024 8:09 PM CDT) Only the most recent of2 resultswithin the time period is included. SPEC DESCRIPTION BLOOD-PEDIA TRIC VOLUME 09/13/2024 2:26 PM CDT [facility] SPECIAL REQUESTS NO SPECIAL REQUEST 09/13/2024 2:26 PM CDT [facility] CULTURE RESULT NO GROWTH 5 DAYS 09/20/2024 10:26 AM CDT [facility] BLOOD SPECIMEN OBTAINED FOR BLOOD CULTURE / Unknown 09/13/2024 8:09 PM CDT 09/14/2024 6:33 PM CDT us Joseline Alvarado MD MICROBIOLOGY - GENERAL ORD ERABLES Final Result Performing Organization Address City/State/[facility] Co de Phone Number [facility] [address] [place] [address], [place] [phone] [facility] [address] [place] [address], [place] [phone] * Central Line (09/13/2024 6:00 PM CDT) Joseline Sandoval MD - 09/13/2024 6:00 PM CDT Joseline Alvarado MD 09/13/2024 7:24 PM Central Line Date/Time: 09/13/2024 6:00 PM Performed by: Joseline Alvarado MD Authorized by: Joseline Alvarado MD Consent: Consent obtained: Written Consent given by: Patient Risks discussed: Arterial puncture, incorrect placement, pneumothorax and infection Alternatives discussed: Delayed treatment [place] protocol: Patient identity confirmed: Verbally with patient [...] extraordinarily difficult to localize on ultrasound guidance us Joseline Alvarado MD PROCEDURE/MINOR SURGICAL O RDERABLES Final Result * (ABNORMAL) COMPREHENSIVE METABOLIC PANEL (09/13/2024 4:14 PM CDT) Pathologist [facility] GLUCOSE 113(H) 70 - 99 MG/DL 09/13/2024 4:37 PM CDT [facility] BUN 16 7 - 18 MG/DL 09/13/2024 4:37 PM CDT [facility] CREATININE S/P/B 1.47(H) 0.7 - 1.3 MG/DL 09/13/2024 4:37 PM CDT [facility] SODIUM S/P/B 132(L) 136 - 145 MMOL/L 09/13/2024 4:37 PM CDT [facility] POTASSIUM S/P/B 4.4 3.5 - 5.1 MMOL/L 09/13/2024 4:37 PM T [facility] CHLORIDE S/P/B 97(L) 100 - 108 MMOL/L 09/13/2024 4:37 PM CDT [facility] CO2 20.2(L) 21 - 32 MMOL/L 09/13/2024 4:37 PM CDT [facility] CALCIUM S/P/B 9.1 8.5 - 10.1 MG/DL 09/13/2024 4:37 PM T [facility] BILIRUBIN TOTAL S/P/B 0.6 0.2 - 1.2 MG/DL 09/13/2024 4:37 PM T [facility] TOTAL PROTEIN S/P/B 7.6 6.4 - 8.2 G/DL 09/13/2024 4:37 PM CDT [facility] ALBUMIN S/P/B 3.1(L) 3.4 - 5.0 G/DL 09/13/2024 4:37 PM CDT [facility] AST 28 15 - 37 U/L 09/13/2024 4:37 PM CDT [facility] ALT 28 16 - 60 U/L 09/13/2024 4:37 PM CDT [facility] ALKALINE PHOSPHATASE S/P/B 92 50 - 136 U/L 09/13/2024 4:37 PM CDT [facility] ANION GAP 14.8 5 - 15 MMOL/L 09/13/2024 4:37 PM CDT [facility] BUN CREATININE RATIO 10.9 6 - 26 09/13/2024 4:37 PM T [facility] A/G RATIO 0.7(L) 1.0 - 2.0 RATIO 09/13/2024 4:37 PM CDT [facility] GFR ESTIMATE 53(L) >90 ML/MIN/1.7 3 M2 09/13/2024 4:37 PM CDT [facility] Comment: NOTE: eGFR is not calculated for patients <18 years of age. This is an estimated GFR calculation using the new CKD EPI creatinine equation without race and so does not require a correction factor for race. This estimated GFR should not be used for calculating drug doses. 09/13/2024 4:14 PM CDT us Joseline Alvarado MD LABORATORY Final Resu lt [facility] [address] [place] [address], [place] [phone] * (ABNORMAL) CULTURE URINE (09/13/2024 1:45 PM CDT) SPEC DESCRIPTION URINE STRAIGHT CATH 09/13/2024 2:18 PM CDT [facility] SPECIAL REQUESTS NO SPECIAL REQUEST 09/13/2024 2:18 PM CDT [facility] CULTURE RESULT 50,000-100,0 00 COL/ML ESCHERICHIA COLI (A) 09/16/2024 7:12 AM CDT [facility] URINE SPECIMEN OBTAINED BY SINGLE [...] MICROBIOLOGY - GENERAL ORD ERABLES Final Result [facility] [address] [place] [address], [place] [phone] [facility] [address] [place] [address], [place] [phone] * (ABNORMAL) URINALYSIS, AUTO, COMPLETE (09/13/2024 1:45 PM CDT) COLOR (U) DARK YELLOW 09/13/2024 2:09 PM CDT [facility] TRANSPARENCY TURBID 09/13/2024 2:09 PM [facility] SPECIFIC GRAVITY (U) 1.020 1.000 - 1.030 09/13/2024 2:09 PM [facility] U PH 8.0 5.0 - 9.0 09/13/2024 2:09 PM [facility] LEUKOCYTES (U) 3+(A) NEGATIVE 09/13/2024 2:09 PM [facility] NITRITES NEGATIVE NEGATIVE 09/13/2024 2:09 PM [facility] PROTEIN RANDOM (U) 1+(A) NEGATIVE 09/13/2024 2:09 PM [facility] GLUCOSE (U) NEGATIVE NEGATIVE 09/13/2024 2:09 PM [facility] KETONES MG/DL (U) NEGATIVE NEGATIVE 09/13/2024 2:09 PM [facility] BILIRUBIN (U) NEGATIVE NEGATIVE 09/13/2024 2:09 PM [facility] BLOOD (U) 3+(A) NEGATIVE 09/13/2024 2:09 PM [facility] WBC/HPF 50-100 0 - 5 /HPF 09/13/2024 2:09 PM [facility] RBC/HPF 50-100 0 - 5 /HPF 09/13/2024 2:09 PM [facility] EPI/HPF FEW /HPF 09/13/2024 2:09 PM [facility] CRYSTALS (U) FEW /HPF 09/13/2024 2:09 PM [facility] Comment:TRIPLE PHOSPHATE BACTERIA (U) MANY /HPF 09/13/2024 2:09 PM [facility] URINE, STRAIGHT CATH 09/13/2024 1:45 PM CDT us Joseline Alvarado MD URINE ORDERABLES Final Res ult [facility] [address] [facility] [place] [address], [place] [phone] * Critical Care (09/13/2024 1:02 PM CDT) Joseline Sandoval MD - 09/13/2024 1:02 PM CDT Joseline [...] 10:34 AM 09/16/2024 3:17 PM Care Teams Continuous Process Machine Operator Relationship Specialty Start Date End Date Non-Staff, Provider PCP - General UNKNOWN PHYSICIAN SPECIALTY 09/13/24
--- OUTSIDE RECORDS SUMMARY | 2024-10-07 09:15 | XMS_ITS | Encounter Summary ---
Author Organization [facility] Address [address] [place] [address] Care Team Providers Care Sales And Service Consultant Name Role Phone Non-Staff, Provider Primary Care [...] he would like to be seen at [facility]. Encounter Details Date Type Department Care Team (Late st Contact Info) Description 09/16/2024 Telephone [facility] Wound Care [address] [place] [address] Remedios Fuller, RN Follow Up Call (Wound care referral from IP stay. Patient already discharged. Called patient to see if would like to be seen at the wound care clinic for wound on his bottom. stated she would talk to and call back tomorrow and let us know if he would like to be seen at [facility].) Social History Tobacco Use Types Packs/Day [...] from your doctor or pharmacy? Rarely 09/13/2024 [facility] Utilities Answer Date Recorded In the past 12 months has th e electric, gas, oil, or water [employer] threatened to shut off services in your [...] Never 09/13/2024 How often do you attend jewish or pentecostal serv ices? Never 09/13/2024 Do you belong to any clubs o r organizations such as jewish groups, unions, fraternal or athletic groups, or [...] any time in the past 12 m [facility], were you homeless or living in a detention (including now)? No 09/13/2024 Sex and Gender [...] Author Status Yes 09/13/2024 11:35 PM CDT Sujtaa Cleaning RN Active documented as of this encounter Mental Status * Because of a physical, mental, or emotional condition, do you have serious difficulty concentrating, remembering, or making decisions? Answer Entry Date Author Status No 09/13/2024 11:35 PM CDT Sujata Cleaning RN Active documented in this encounter Plan of Treatment Upcoming Encounters Date Type Department Care Team (Late st Contact Info) Description 10/09/2024 10:00 AM CDT Appointment [facility] [address] [place] [address] [place] [address] [facility] [address] [place], [place] [id number] documented as of this encounter Visit Diagnoses Not on filedocumented in this encounter Care Teams Sales And Service Consultant Relationship Specialty Start Date End Date Non-Staff, Provider PCP - General UNKNOWN PHYSICIAN SPECIALTY 09/13/24 documented as of this encounter
== END 2024-10-07 08:47 | disposition home or self-care (01) ==
PROVIDERS: PCP Internal Medicine; Visit Provider Urology
DX: Z01.818 Encounter for other preprocedural examination (principal); E78.5 Hyperlipidemia, unspecified; R94.31 Abnormal electrocardiogram [ECG] [EKG]; I45.0 Right fascicular block; I45.10 Unspecified right bundle-branch block
CPT/HCPCS: 93005

== ENCOUNTER 2024-10-16 02:09 | Day surgery (SDC) | payer MEDICARE, SELFPAY ==
--- NOTE | 2024-10-03 10:30 | PC.NURSE ---
Report to the Outpatient Waiting Room, entrance under the green pavilion located off [facility], at time _0800am on date 10/16/24 . Planned Procedure Time: _1000am .? Time changes happen often and if your time is changed the preop area will call you the afternoon before. - You and your visitor will be asked to self-screen and do not enter if you have any COVID symptoms. Please call surgeon if you need to reschedule. - A mask is optional within the hospital at this time. Patients may have clear liquids (water, carbonated beverages, clear teas, apple juice) until 3 hours prior to surgery with a maximum of 20 ounces. - No food from midnight until time of surgery and no smoking, or chewing tobacco (or any form of nicotine). No chewing gum, candy or mints. (0700am) Take only the following medications with a SIP of water on the morning of surgery: Levothyroxine, Hydrocodone if needed DO NOT STOP ANY OF YOUR OTHER PRESCRIPTION MEDICATIONS PRIOR TO SURGERY EXCEPT THE FOLLOWING Hold all vitamins and supplements for 3 days per anesthesiologist.Date to take last dose___10/12/24 Medications to discontinue per physician ____None Date to take last dose___None Please no make-up, nail frisian, hairspray, perfume, deodorant, or body powder the day of surgery.? No jewelry (including any body piercings) or valuables the day of surgery, leave them at home.? Please take a shower or bath the night before, or the morning of, surgery with an antibacterial soap.? Wear comfortable, loose fitting clothing.? - Jewelry must be removed prior to entering the operating room.? Rings and piercings that are not removed may be cut off. - The hospital will not accept responsibility for valuables.? - Please leave all valuables, including medications, at home the day of surgery. If you are going home after surgery, a licensed escort vehicle driver must drive you home.? - NO public transportation without another adult if you receive anesthesia. - We recommend that an adult stay with you for 24 hours following discharge. - We also recommend that you do not drive, make important decision, drink alcoholic beverages, or take any drugs that were not prescribed by your health care provider for at least 24 hours after your discharge time. Follow any additional instructions given to you from your surgeon. Telephone instructions given to ___Patient and asked if any additional questions and then verbalized understanding. Patient advised to call surgeon office or pre surgery nurse liaison [phone] if any additional questions.
[2024-10-08 08:16] VITALS: BMI 38.5
--- NOTE | 2024-10-15 14:39 | WPDANESEPPF ---
Anes - Initial Pre Proc Eval Procedure: Operation Date: 10/16/24 10:00 Proposed Procedures p Cystoscopy, Bilateral Retrograde Pyelography, Holmium Laser Lithotripsy with Bladder Stone Extraction - Shin Haas MD Date/Time: 10/15/24 14:39 Surgeon: Shin Haas MD Pre Op Diagnosis: Bladder Stone Patient Data Age: 64 Gender: M Height: 1.88 m Weight: 136 kg Allergies Allergy/AdvReac Type Severity Reaction Status Date / Time vancomycin Allergy Severe ANAPHYLACTIC Verified 10/03/24 10:11 SHOCK gramicidin D Allergy Intermediate Other Verified 10/03/24 10:11 polymyxin B Allergy Intermediate Other Verified 10/03/24 10:11 bacitracin Allergy Unknown Other Verified 10/03/24 10:11 POLYMYXIN B SULFATE Allergy Intermediate Other Uncoded 10/03/24 10:11 BACITRACIN ZINC Allergy Unknown Other Uncoded 10/03/24 10:11 NEOMYCIN SULFATE Allergy Unknown Other Uncoded 10/03/24 10:11 Home Medications ?Medication ?Instructions ?Recorded ?Confirmed ?Type sulfamethoxazole 800 1 tablet PO HS 04/24/24 10/03/24 History mg-trimethoprim 160 mg tablet (Bactrim DS) baclofen 10 mg tablet 20 mg (2 x 10 mg) PO BID #360 tabs 06/27/24 10/03/24 Rx levothyroxine 50 mcg tablet 50 mcg PO DAILY #90 tabs 06/27/24 10/03/24 Rx (Synthroid) simvastatin 20 mg tablet 20 mg PO DAILY #90 tabs 06/27/24 10/03/24 Rx ascorbic acid (vitamin C) 500 mg 500 mg PO DAILY 10/03/24 10/03/24 History chewable tablet (Acerola C) iron,carbonyl 65 mg-vitamin C 125 1 tablet PO DAILY 10/03/24 10/03/24 History mg tablet,delayed release (Vitron-C) vitamin E 268 mg (400 unit) capsule 268 mg PO DAILY 10/03/24 10/03/24 History hydrocodone 5 mg-acetaminophen 325 1 tablet PO BID PRN pain #60 tabs 10/14/24 Rx mg tablet Patient hx anesthesia problems: none Family hx anesthesia problems: none Results Review: All pre-operative results and documents have been reviewed as part of the pre-operative evaluation. COUNT INCLUDES THE [facility] Past Medical History Medical History (Updated 10/15/24 @ 14:40 by Jamie Samuel DO) Pressure ulcer of ischium, stage 2 Hyperlipidemia Sleep apnea in adult Hypothyroidism Paraplegia, complete Surgical History Surgical History Hx of colostomy Family History Family History Father Family history of elevated blood lipids Gout Mother Family history of elevated blood lipids Family history of malignant neoplasm of breast in first degree relative Breast cancer Heart disease Alzheimers disease Grandparent Family history of malignant neoplasm of breast Sibling Patient's sister is in good health Social History Social History Smoking status: Never smoker Second hand tobacco smoke exposure: No Alcohol intake: never Substance use: never Substance use type: painkillers Other substance usage details: Takes Hydrocodone short term for pain currently Do You Feel Safe in your Home?: Yes Lack of Transportation: No Lack of Food: Never True Current Housing: I Have Housing Concerned About Future Housing: No Difficulty Paying Gas/Electric Bills: No Difficulty Paying for Meds: No Currently Unemployed: No Education: High School Diploma/GED Difficulty w/ Childcare or Family Care: No Living arrangements: with family Additional living arrangements comments: Nicole Occupation/Education: other Gender identity (if verbalized by the patient): Male Spiritual care concerns: No Anes - Eval Final PreProcedure Day of Procedure 10/15/24 14:39 Patient weight: obese Heart: regular rate and rhythm Lungs: clear to auscultation Airway: Mallampati scale class III Neurological: alert and oriented Last oral intake: >/= 8 hours ASA classification: IV Emergent: no Anesthetic plan: proceed Anesthesia type and monitoring: general LMA and standard monitoring Results Review: All pre-operative results and documents have been reviewed as part of the pre-operative evaluation. Informed Consent: The patient's anesthetic plan and its attendant risks and benefits were discussed with the patient/family/POA. Questions were solicited and answers provided to the satisfaction of the patient/family/POA.
[2024-10-16] VITALS (9 sets, daily range): BP systolic 96–174; BP diastolic 65–98; PULSE 53–78; RESP 12–18; TEMP 36.6–36.8; O2SAT 94–100
--- NOTE | ~2024-10-16 | XR_ITS ---
EXAMINATION: XR retrograde pyelogram BI DATE: 10/16/2024 09:36 INDICATION: Bladder stone laser ablation and bilateral retrograde pyelogram 6 TECHNIQUE: 7 fluoroscopic images of the abdomen and pelvis were obtained during procedure performed huber Haas. Radiologist was not present for the imaging or procedure. The amount of fluoroscopy brenna e used during this procedure was 0.5 minutes. Total DAP was 0.783 mGym^2. COMPARISON: None. FINDINGS: The previously seen stone in the bladder can be seen slightly to the left of midline on the initial i mages. Subsequent images demonstrate retrograde cannulation and contrast injection opacifying the grace ateral ureters and renal collecting systems which appear unremarkable with no filling defects or urot helial irregularities. IMPRESSION: 1. Bladder stone. Otherwise unremarkable bilateral retrograde pyelograms. Reviewed, dictated and finalized at location B.
--- OUTSIDE RECORDS SUMMARY | 2024-10-16 02:12 | XMS_ITS | Clinical Summary ---
Author Organization [facility] Address [address] [place] [address] Care Team Providers Care Electrician Station Assistant Name Role Phone Non-Staff, Provider Primary Care Provider Carlos lable Allergies Active Allergy Reactions Criticality Noted Date Comments Bacitracin-Polymyxin B Other (see comment) 08/17 Wellpinit Vancomycin Redness 09/13/2024 Red man syndrome Medications baclofen (LIORESAL) 10 MG tablet Take 1 tablet (10 mg total) by mouth nightly at bedtime. 07/05/2024 Active HYDROcodone-dg taminophen (NORCO) 5-325 MG tablet Take 1 tablet by mouth 2 (two) times daily as needed. 06/20/2024 Active levothyroxine (SYNTHROID) 50 MCG tablet Take 1 tablet (50 mcg total) by mouth daily. 07/05/2024 Active simvastatin (ZOCOR) 20 MG tablet Take 1 tablet (20 mg total) by mouth daily. 07/05/2024 Active Iron-Vitamin C (VITRON-C OR) Take 1 tablet by mouth nightly at bedtime. Active vitamin C (ASCORBIC ACID) 500 MG tablet Take 1 tablet (500 mg total) by mouth daily. Active vitamin E 100 UNIT capsule Take 1 capsule (100 Units total) by mouth daily. Active amLODIPine (NORVASC) 5 MG tablet Take 1 tablet (5 mg total) by mouth daily. 30 tablet 09/16/2024 Active cefdinir (OMNICEF) 300 MG Cap capsule Take 1 capsule (300 mg total) by mouth 2 (two) times daily for 3 days. 6 capsule 09/17/2024 09/21/19 25 Active Problems Problem Noted Date Diagnosed Date Complicated UTI (urinary tract infection) 2024 Encounters Date Type Department Care Team Description 10/09/2024 9:53 AM CDT - 10/09/2024 11:59 PM CDT Hospital Encounter Health system Wound Care [address] [place] [address] Mckayla Sauer NP Discharge Disposition: Home or Self Care (Routine Discharge) 10/09/2024 Travel 10/01/2024 1:38 PM CDT - 10/01/2024 11:59 PM CDT Hospital Encounter Health system Wound Care [address] [place] [id number] Chris Fuller MD Discharge Disposition: Home or Self Care (Routine Discharge) 10/01/2024 Travel 09/30/2024 Telephone Health system Med/Surg [address] [place] [id number] Michelle Tran RN Follow Up Call (Spoke w/ pt's , Urology appt made and seen) 09/24/2024 1:12 PM CDT - 09/24/2024 11:59 PM CDT Hospital Encounter Health system Wound Care [address] [place] [address] Chris Fuller MD Discharge Disposition: Home or Self Care (Routine Discharge) 09/24/2024 Travel 09/18/2024 Hospital Follow-up Call [facility] [address] [place] [address] Nelsy Rees LPN Follow Up Call ([facility] 09/13-09/16/24) 09/16/2024 Telephone Health system Wound Care [address] [place] [address] Remedios Fuller RN Follow Up Call (Wound care referral from IP stay. Patient already discharged. Called patient to see if would like to be seen at the wound care clinic for wound on his bottom. stated she would talk to and call back tomorrow and let us know if he would like to be seen at [facility].) 09/13/2024 12:42 PM CDT - 09/16/2024 1:12 PM CDT Hospital Encounter Health system Med/Surg [address] [place] [address] Joseline Alvarado MD Mahtani, Andrew, MD Dodt, ESME Cordova Adebunmi, MD Urinary Retention Discharge Disposition: Home [...] from your doctor or pharmacy? Rarely 09/13/2024 [facility] Utilities Answer Date Recorded In the past 12 months has e [employer], gas, oil, or water [employer] threatened to shut off services in your [...] Never 09/13/2024 How often do you attend yarsani or congregation serv ices? Never 09/13/2024 Do you belong to any clubs o r organizations such as yarsani groups, unions, fraternal or athletic groups, or [...] any time in the past 12 m [facility], were you homeless or living in a [...] Care Team (Late st Contact Info) Description 10/23/2024 9:30 AM CDT Appointment [facility] [address] [place], [place] [id number] [place] [address] [address] [place], [place] [id number] Health Maintenance Due Date Last Done Comments [...] of3 resultswithin the time period is included. GLUCOSE 105(H) 70 - 99 MG/DL 09/16/2024 5:59 AM CDT [facility] BUN 10 7 - 18 MG/DL 09/16/2024 5:59 AM CDT [facility] CREATININE S/P/B 0.85 0.7 - 1.3 MG/DL 09/16/2024 5:59 AM CDT [facility] SODIUM S/P/B 138 136 - 145 MMOL/L 09/16/2024 5:59 AM CDT [facility] POTASSIUM S/P/B 4.0 3.5 - 5.1 MMOL/L 09/16/2024 5:59 AM CDT [facility] CHLORIDE S/P/B 104 100 - 108 MMOL/L 09/16/2024 5:59 AM CDT [facility] CO2 25.2 21 - 32 MMOL/L 09/16/2024 5:59 AM CDT [facility] CALCIUM S/P/B 9.2 8.5 - 10.1 MG/DL 09/16/2024 5:59 AM CDT [facility] ANION GAP 8.8 5 - 15 MMOL/L 09/16/2024 5:59 AM CDT [facility] BUN CREATININE RATIO 11.8 6 - 26 09/16/2024 5:59 AM CDT [facility] GFR ESTIMATE >90 >90 ML/MIN/1.7 3 M2 09/16/2024 5:59 AM CDT [facility] Comment: NOTE: eGFR is not calculated for patients <18 years of age. This is an estimated GFR calculation using the new CKD EPI creatinine equation without race and so does not require a correction factor for race. This estimated GFR should not be used for calculating drug doses. 09/16/2024 5:15 AM CDT Glenys Santana APRN LABORATORY Final Result [facility] [address] [place] [address], * (ABNORMAL) CBC W/DIFF AUTOMATED (09/16/2024 5:15 AM CDT) Only the most recent of4 resultswithin the time period is included. WBC 7.96 4.4 - 11.0 x10'3/uL 09/16/2024 5:43 AM CDT [facility] RBC 4.25(L) 4.50 - 5.90 x10'6/uL 09/16/2024 5:43 AM CDT [facility] HGB 12.2(L) 14.0 - 17.5 G/DL 09/16/2024 5:43 AM CDT [facility] HCT 38.0(L) 41.5 - 50.4 % 09/16/2024 5:43 AM CDT [facility] MCV 89.4 80.0 - 96.0 FL 09/16/2024 5:43 AM CDT [facility] MCH 28.7 26.5 - 31.4 PG 09/16/2024 5:43 AM CDT [facility] MCHC 32.1 31.9 - 34.8 G/DL 09/16/2024 5:43 AM CDT [facility] RDW 15.3(H) 12.3 - 14.3 % 09/16/2024 5:43 AM CDT [facility] PLT 196 151 - 353 x10'3/uL 09/16/2024 5:43 AM CDT [facility] MPV 9.7 9.7 - 11.9 FL 09/16/2024 5:43 AM CDT [facility] RBC MORPHOLOGY NORMAL 09/16/2024 5:43 AM CDT [facility] PLT MORPH. NORMAL 09/16/2024 5:43 AM CDT [facility] WBC MORPHOLOGY NORMAL 09/16/2024 5:43 AM CDT [facility] LYMPHOCYTES % 21.9 15.8 - 45.0 % 09/16/2024 5:43 AM CDT [facility] NEUTROPHILS % 63.8 42.1 - 71.9 % 09/16/2024 5:43 AM CDT [facility] MONOCYTES % 9.0 5.7 - 12.5 % 09/16/2024 5:43 AM CDT [facility] EOSINOPHILS 3.5 0.0 - 5.6 % 09/16/2024 5:43 AM CDT [facility] BASOPHILS 1.4(H) 0.0 - 1.3 % 09/16/2024 5:43 AM CDT [facility] ABS. NEUTROPHILS 5.08 1.40 - 6.00 x10'3/uL 09/16/2024 5:43 AM CDT [facility] IMMATURE GRANS % 0.4 0.0 - 0.5 % 09/16/2024 5:43 AM CDT [facility] ABS. LYMPHOCYTES 1.74 0.80 - 4.70 x10'3/uL 09/16/2024 5:43 AM CDT [facility] 09/16/2024 5:15 AM CDT Basil Bart [facility] GALLERY MANAGER LABORATORY Final Result [facility] [address] [place] [address], [place] [phone] * XR HEEL LT MIN 2V (09/14/2024 [...] 12:45 PM Narrative 09/14/2024 12:54 PM CDT [facility] [address] [facility] [place] [address] Examination: Left calcaneus. Exam time: 1230 hours. [...] Procedure Note Alex Araiza MD - 09/14/2024 [facility] [address] [facility] [place] [address] Examination: Left calcaneus. Exam time: 1230 hours. [...] Araiza MD, 09/14/2024 12:45 PM Glenys Santana GALLERY MANAGER GENERAL IMAGING Final Result * (ABNORMAL) LACTIC ACID W REFLEX (SEPSIS) (09/13/2024 10:21 PM CDT) Only the most recent of3 resultswithin the time period is included. LACTIC ACID VENOUS 2.1(HH) 0.4 - 2.0 MMOL/L 09/13/2024 10:55 PM CDT [facility] Comment: Critical Result(s) Called at: 22:55:01 on 09/13/2024 by: MATHIEU JOHNSON to and read back by:RENETTA ROQUE IN ED 09/13/2024 10:2 1 PM CDT Joseline Alvarado MD LABORATORY Final Resu lt [facility] [address] [place] [address], [place] [phone] * CULTURE, BACTERIA, BLOOD (09/13/2024 8:09 PM CDT) Only the most recent of2 resultswithin the time period is included. SPEC DESCRIPTION BLOOD-PEDIA TRIC VOLUME 09/13/2024 2:26 PM CDT [facility] SPECIAL REQUESTS NO SPECIAL REQUEST 09/13/2024 2:26 PM CDT [facility] CULTURE RESULT NO GROWTH 5 DAYS 09/20/2024 10:26 AM CDT [facility] BLOOD SPECIMEN OBTAINED FOR BLOOD CULTURE / Unknown 09/13/2024 8:09 PM CDT 09/14/2024 6:33 PM CDT us Joseline Alvarado MD MICROBIOLOGY - GENERAL ORD ERABLES Final Result Performing Organization Address City/State/[facility] de Phone Number [facility] [address] [place] [address], [place] [phone] [facility] [address] [place] [address], [place] [phone] * Central Line (09/13/2024 6:00 PM CDT) Narrative Joseline Alvarado MD - 09/13/2024 6:00 PM CDT Joseline Alvarado MD 09/13/2024 7:24 PM Central Line Date/Time: 09/13/2024 6:00 PM Performed by: Joseline Alvarado MD Authorized by: Joseline Alvarado MD Consent: Consent obtained: Written Consent given by: Patient Risks discussed: Arterial puncture, incorrect placement, pneumothorax and infection Alternatives discussed: Delayed treatment [place] protocol: Patient identity confirmed: Verbally with patient [...] - 99 MG/DL 09/13/2024 4:37 PM CDT [facility] BUN 16 7 - 18 MG/DL 09/13/2024 4:37 PM CDT [facility] CREATININE S/P/B 1.47(H) 0.7 - 1.3 MG/DL 09/13/2024 4:37 PM CDT [facility] SODIUM S/P/B 132(L) 136 - 145 MMOL/L 09/13/2024 4:37 PM CDT [facility] POTASSIUM S/P/B 4.4 3.5 - 5.1 MMOL/L 09/13/2024 4:37 PM T [facility] CHLORIDE S/P/B 97(L) 100 - 108 MMOL/L 09/13/2024 4:37 PM T [facility] CO2 20.2(L) 21 - 32 MMOL/L 09/13/2024 4:37 PM T [facility] CALCIUM S/P/B 9.1 8.5 - 10.1 MG/DL 09/13/2024 4:37 PM T [facility] BILIRUBIN TOTAL S/P/B 0.6 0.2 - 1.2 MG/DL 09/13/2024 4:37 PM T [facility] TOTAL PROTEIN S/P/B 7.6 6.4 - 8.2 G/DL 09/13/2024 4:37 PM CDT [facility] ALBUMIN S/P/B 3.1(L) 3.4 - 5.0 G/DL 09/13/2024 4:37 PM CDT [facility] AST 28 15 - 37 U/L 09/13/2024 4:37 PM T [facility] ALT 28 16 - 60 U/L 09/13/2024 4:37 PM T [facility] ALKALINE PHOSPHATASE S/P/B 92 50 - 136 U/L 09/13/2024 4:37 PM T [facility] ANION GAP 14.8 5 - 15 MMOL/L 09/13/2024 4:37 PM T [facility] BUN CREATININE RATIO 10.9 6 - 26 09/13/2024 4:37 PM T [facility] A/G RATIO 0.7(L) 1.0 - 2.0 RATIO 09/13/2024 4:37 PM T [facility] GFR ESTIMATE 53(L) >90 ML/MIN/1.7 3 M2 09/13/2024 4:37 PM T [facility] Comment: NOTE: eGFR is not calculated for patients <18 years of age. This is an estimated GFR calculation using the new CKD EPI creatinine equation without race and so does not require a correction factor for race. This estimated GFR should not be used for calculating drug doses. 09/13/2024 4:14 PM CDT us Joseline Alvarado MD LABORATORY Final Resu lt [facility] [address] [place] [address], [place] [phone] * (ABNORMAL) CULTURE URINE (09/13/2024 1:45 PM CDT) SPEC DESCRIPTION URINE STRAIGHT CATH 09/13/2024 2:18 PM CDT [facility] SPECIAL REQUESTS NO SPECIAL REQUEST 09/13/2024 2:18 PM CDT [facility] CULTURE RESULT 50,000-100,0 00 COL/ML ESCHERICHIA COLI (A) 09/16/2024 7:12 AM CDT [facility] URINE SPECIMEN OBTAINED BY SINGLE CATHETERIZATION [...] MICROBIOLOGY - GENERAL ORD ERABLES Final Result [facility] [address] [place] [address], [place] [phone] [facility] [address] [place] [address], [place] [phone] * (ABNORMAL) URINALYSIS, AUTO, COMPLETE (09/13/2024 1:45 PM CDT) COLOR (U) DARK YELLOW 09/13/2024 2:09 PM [facility] TRANSPARENCY TURBID 09/13/2024 2:09 PM [facility] SPECIFIC GRAVITY (U) 1.020 1.000 - 1.030 09/13/2024 2:09 PM [facility] U PH 8.0 5.0 - 9.0 09/13/2024 2:09 PM [facility] LEUKOCYTES (U) 3+(A) NEGATIVE 09/13/2024 2:09 PM [facility] NITRITES NEGATIVE NEGATIVE 09/13/2024 2:09 PM [facility] PROTEIN RANDOM (U) 1+(A) NEGATIVE 09/13/2024 2:09 PM [facility] GLUCOSE (U) NEGATIVE NEGATIVE 09/13/2024 2:09 PM [facility] KETONES MG/DL (U) NEGATIVE NEGATIVE 09/13/2024 2:09 PM [facility] BILIRUBIN (U) NEGATIVE NEGATIVE 09/13/2024 2:09 PM [facility] BLOOD (U) 3+(A) NEGATIVE 09/13/2024 2:09 PM [facility] WBC/HPF 50-100 0 - 5 /HPF 09/13/2024 2:09 PM [facility] RBC/HPF 50-100 0 - 5 /HPF 09/13/2024 2:09 PM [facility] EPI/HPF FEW /HPF 09/13/2024 2:09 PM [facility] CRYSTALS (U) FEW /HPF 09/13/2024 2:09 PM [facility] Comment:TRIPLE PHOSPHATE BACTERIA (U) MANY /HPF 09/13/2024 2:09 PM CDT [facility] URINE, STRAIGHT CATH 09/13/2024 1:45 PM CDT Joseline Alvarado MD URINE ORDERABLES Final Res ult [facility] [address] [place] [address], * Critical Care (09/13/2024 1:02 PM CDT) [...] 10:34 AM 09/16/2024 3:17 PM Care Teams Electrician Station Assistant Relationship Specialty Start Date End Date Non-Staff, Provider PCP - General UNKNOWN PHYSICIAN SPECIALTY 09/13/24
--- OUTSIDE RECORDS SUMMARY | 2024-10-16 02:12 | XMS_ITS | Encounter Summary ---
Author Organization [facility] Address [address] [place] [address] Care Team Providers Care Curb Setter Helper Name Role Phone Non-Staff, Provider Primary Care [...] he would like to be seen at [facility]. Encounter Details Date Type Department Care Team (Late st Contact Info) Description 09/16/2024 Telephone [facility] [address] [place] [address] Remedios Fuller, RN Follow Up Call (Wound care referral from IP stay. Patient already discharged. Called patient to see if would like to be seen at the wound care clinic for wound on his bottom. stated she would talk to and call back tomorrow and let us know if he would like to be seen at [facility].) Social History Tobacco Use Types [...] your doctor or pharmacy? Rarely 09/13/2024 [facility] Utilities Answer Date Recorded In the past 12 months has th e electric, gas, oil, or water [employer] threatened to shut off services in your [...] How often do you attend synagogue or caodaism serv ices? Never 09/13/2024 Do you belong [...] time in the past 12 m [facility], were you homeless or living in a half-way (including now)? No 09/13/2024 Sex and Gender [...] PM CDT Sujata Cleaning RN Active documented as of this [...] Info) Description 10/23/2024 9:30 AM CDT Appointment [facility] [address] [place] [address] [place] [address] [facility] [address] [place], [place] [id number] documented as of this encounter Visit Diagnoses Not on filedocumented in this encounter Care Teams Curb Setter Helper Relationship Specialty Start Date End Date Non-Staff, Provider PCP - General UNKNOWN PHYSICIAN SPECIALTY 09/13/24 documented as of this encounter
--- NOTE | 2024-10-16 06:30 | WPDHPUPDATE1 ---
History and Physical Update Update Date/Time: 10/16/24 06:30 History and Physical has been reviewed, including an updated exam of the patient. There are NO changes in the patient's condition. Risks, benefits, and alternatives have been discussed and questions answered. Patient agrees to proceed with procedure.
[2024-10-16] MEDS: LACTATED RINGERS 1,000 ML 30 ML IV CONT (08:30)
[2024-10-16] MEDS: ceFAZolin 3 GM/D5W 100 ML 100 ML IVPB (09:03)
[2024-10-16] MEDS: LIDOCAINE 2% GEL UROJET 10 ML PKG MUCOUS MEM (09:24)
--- NOTE | 2024-10-16 09:52 | W.PM.PROC2 ---
Procedure Note - Detailed Date of Procedure 10/16/24 Pre-op Diagnosis Bladder Stone Post-op Diagnosis Same Procedure Performed Cystoscopy, bilateral retrograde pyelography, laser lithotripsy with bladder stone extraction Surgeon Shin Haas MD Anesthesia General Description of Procedure Patient is brought to the operative suite was prepped draped in routine sterile fashion while in dorsal lithotomy position after the uneventful induction of a general LMA anesthetic. Cystoscopy was undertaken with a 21 F rigid cystoscope. There was no urethral strictures and only moderate lateral lobe hyperplasia of the prostate without a median lobe. Bladder shows minimal trabeculation without cellule or diverticular formation. He has a 2 cm bladder stone floating freely. There was no other foreign bodies and no mucosal defects or obvious neoplasm. He has a single orthotopic ureteral orifice bilaterally. Using an 8 F ball-tip catheter retrograde pyelograms were obtained bilaterally. There is no filling defects points of obstruction or other identifiable upper tract pathology. Using a 1000 micron Jaswinder laser fiber the bladder stone is fractured into small pieces all of which were evacuated with an Ellik evacuator. The patient tolerated the procedure well was taken recovery room good condition.
--- NOTE | 2024-10-16 11:32 | SUR.PHASEII ---
When this nurse wheeled pt out to truck, pt informed me that pt was driving due to that vehicle is only equip to have wheelchair in car pick up driver seat. They were both infomed during discharge instruction and at time of leaving that pt is not to be driving for 24 hrs. They both verbalized understanding and proceeded to have pt drive home. Dept manager of photography and security notified.
== END 2024-10-16 11:27 | disposition home or self-care (01) ==
PROVIDERS: PCP Internal Medicine; Visit Provider Urology
PROC: (CPT 52352; principal; 2024-10-16 10:00)
DX: N21.0 Calculus in bladder (principal); N40.0 Benign prostatic hyperplasia without lower urinary tract symptoms; E78.5 Hyperlipidemia, unspecified; E03.9 Hypothyroidism, unspecified; G47.30 Sleep apnea, unspecified; G82.21 Paraplegia, complete; L89.152 Pressure ulcer of sacral region, stage 2; E66.9 Obesity, unspecified; Z68.38 Body mass index [BMI] 38.0-38.9, adult; Z79.891 Long term (current) use of opiate analgesic; Z98.890 Other specified postprocedural states; Z93.3 Colostomy status; Z98.1 Arthrodesis status; Z87.2 Personal history of diseases of the skin and subcutaneous tissue; Z80.3 Family history of malignant neoplasm of breast; Z82.49 Family history of ischemic heart disease and other diseases of the circulatory system
CPT/HCPCS: 52005; 52317; 74420; 82365; 88300; C1758; C1769; J0690; J2003; J2250; J2405; J2704; J3010; J7120; Q9966

== ENCOUNTER 2025-03-31 08:31 | Outpatient (CLI) | payer MEDICARE, SELFPAY ==
--- NOTE | ~2025-03-31 | XR_ITS ---
EXAMINATION: XR abdomen/kub 1V, 03/31/2025 9:08 CDT HISTORY: FLACCID NEUROPATHIC BLADDER COMPARISON: No comparisons available. Technique: 3 view. Findings: Bowel gas pattern unremarkable. No obstruction. No free air. No abnormal calcifications No acute osseous abnormality. Impression: 1. No acute abnormality. Reviewed, dictated and finalized at location P. Impression: 1. No acute abnormality.
[2025-03-31 10:07] LABS: Alanine Aminotransferase 15 U/L (6-50); Albumin Level 3.6 g/dL (3.5-5.1); Alkaline Phosphatase 102 U/L (38-126); Anion Gap 9 mmol/L (4-12); Aspartate Amino Transferase 23 U/L (17-59); Bilirubin,Total 0.5 mg/dL (0.2-1.3); Blood Urea Nitrogen 13 mg/dL (9-20); Calcium 9.3 mg/dL (8.4-10.2); Carbon Dioxide 23 mmol/L (22-30); Chloride 104 mmol/L (98-107); Cholesterol 159 mg/dL (0-200); Estimated Glomerular Filt Rate > 60; Glucose 113 mg/dL (65-110); HDL Direct 22 mg/dL; Potassium 4.6 mmol/L (3.4-5.0); Sodium 136 mmol/L (137-145); Total Protein 7.8 g/dL (6.3-8.2); Triglycerides 100 mg/dL (<150)
[2025-03-31 10:20] LABS: Free T4 Free Thyroxine 0.99 ng/dL (0.78-2.19)
[2025-03-31 10:39] LABS: Thyroid Stimulating Hormone 3.450 uIU/mL (0.465-4.680)
== END 2025-03-31 08:32 | disposition home or self-care (01) ==
PROVIDERS: PCP Nurse Practitioner; Visit Provider Nurse Practitioner
DX: E78.5 Hyperlipidemia, unspecified (principal); E03.9 Hypothyroidism, unspecified; N31.2 Flaccid neuropathic bladder, not elsewhere classified
CPT/HCPCS: 36415; 74018; 80053; 80061; 84439; 84443